=== PATIENT | female | born 1930 | race Caucasian/White ===

== ENCOUNTER 2018-01-31 10:45 | Emergency (ER) | payer MEDICARE, OTHER ==
--- NOTE | 2018-01-31 11:30 | EDM.PDOC ---
ED HPI GENERAL MEDICAL PROBLEM - General Chief Complaint: General Time Seen by Provider: 01/31/18 11:19 Source of Information: Reports: Patient History Limitations: Reports: No Limitations - History of Present Illness INITIAL COMMENTS - FREE TEXT/NARRATIVE: Patient presents with complaint of 3 episodes of chest pain: 16, 8, and 4 hours ago respectively. The first one occurred shortly after supper last evening as she was walking from one room to another in her assisted living apartment. It lasted about 5 minutes and included mild dyspnea and throat and neck tightening. It resolved when she sat down to rest. The second episode woke her up at 0300 and lasted about 5 minutes. The last episode started when she rolled over in bed and lasted about 10 minutes. She says the pain is worse when she takes a deep breath. She feels like it is more lung related than heart. No cough, diaphoresis, vomiting but some nausea. 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 She is on aspirin and Plavix. She takes Isosorbide qam and was on Coreg for 9 months but was discontinued a week ago, when she was hospitalized in [place] with bradycardia, hypotension and major ankle swelling; the swelling is improving a lot since she stopped the Coreg a week ago she tells me. She feels completely fine now and felt fine between each episode, unlike with her heart attack 9 months ago when she felt weak and sluggish for 2-3 days but without chest pain. - Related Data Allergies Allergy/AdvReac Type Severity Reaction Status Date / Time carvedilol [From Coreg] Allergy Edema Verified 01/31/18 11:11 morphine Allergy Cannot Verified 01/31/18 11:11 Remember Cdwpspm-Wbh-Brk Reductase Allergy Cannot Verified 01/31/18 11:11 Inhibitor Remember Home Meds: Home Meds Furosemide 40 mg PO DAILY 03/28/14 [History] Levothyroxine 150 mcg PO ACBRK 03/28/14 [History] Pregabalin [Lyrica] 100 mg PO BEDTIME 03/28/14 [History] glipiZIDE [Glipizide] 5 mg PO BIDM 03/28/14 [History] metFORMIN [Glucophage] 1,000 mg PO BIDM 03/28/14 [History] Aspirin [Adult Low Dose Aspirin EC] 81 mg PO DAILY 01/31/18 [History] Cholecalciferol (Vitamin D3) [Vitamin D3] 1,000 units PO DAILY 01/31/18 [History ] Clopidogrel Bisulfate [Clopidogrel] 75 mg PO DAILY@1200 01/31/18 [History] Isosorbide Mononitrate [Isosorbide Mononitrate ER] 60 mg PO DAILY 01/31/18 [ History] Losartan [Cozaar] 100 mg PO DAILY 01/31/18 [History] Multivitamin [One Daily Multivitamin] 1 each PO DAILY 01/31/18 [History] Social & Family History - Living Situation & Occupation Living situation: Reports: Occupation: Retired ED ROS GENERAL - Review of Systems Review Of Systems: See Below Constitutional: Denies: Fever, Chills, Weakness, Decreased Appetite HEENT: Reports: Throat Pain (earlier). Denies: Vision Change Respiratory: Reports: Shortness of Breath (resolved). Denies: Cough Cardiovascular: Reports: Chest Pain (resolved). Denies: Lightheadedness, Syncope Endocrine: Reports: No Symptoms GI/Abdominal: Reports: No Symptoms. Denies: Abdominal Pain, Diarrhea, Vomiting : Denies: Dysuria, Flank Pain Musculoskeletal: Reports: No Symptoms. Denies: Shoulder Pain, Arm Pain, Back Pain Skin: Denies: Cyanosis, Jaundice, Mottled, Pallor, Diaphoresis Neurological: Reports: No Symptoms. Denies: Confusion, Seizure, Syncope Psychiatric: Denies: Agitation, Anxiety, Confusion ED EXAM, GENERAL - Physical Exam Exam: See Below Exam Limited By: No Limitations General Appearance: Alert, WD/WN, No Apparent Distress Eye Exam: Bilateral Eye: EOMI, Normal Inspection, PERRL Ears: Normal External Exam, Hearing Grossly Normal Nose: Normal Inspection, No Blood Throat/Mouth: Normal Inspection, Normal Lips, Normal Voice, No Airway Compromise Head: Atraumatic, Normocephalic Neck: Normal Inspection, Supple, Non-Tender, Full Range of Motion. No: Carotid Bruit, Limited Range of Motion Respiratory/Chest: No Respiratory Distress, Lungs Clear, Normal Breath Sounds Cardiovascular: Normal Peripheral Pulses, Regular Rate, Rhythm, No Murmur Peripheral Pulses: 1+: Posterior Tibial (L), Posterior Tibial (R), 2+: Carotid ( L), Carotid (R), Radial (L), Radial (R) GI/Abdominal: Normal Bowel Sounds, Soft, Non-Tender, No Organomegaly, No Distention Back Exam: No: CVA Tenderness (L), CVA Tenderness (R) Extremities: Pedal Edema (1+ bilat) Neurological: Alert, Oriented, Normal Cognition, No Motor/Sensory Deficits Psychiatric: Normal Affect, Normal Mood Skin Exam: Warm, Dry, Intact, Normal Color, No Rash Course - Vital Signs Last Recorded V/S: Last Vital Signs Temp 99.2 F 01/31/18 11:06 Pulse 85 01/31/18 11:39 Resp 17 01/31/18 11:39 BP 129/48 L 01/31/18 11:39 Pulse Ox 96 01/31/18 11:39 - Orders/Labs/Meds Orders: Active Orders 24 hr Category Date Time Status EKG Documentation Completion [RC] ASDIRECTED Care 01/31/18 11:10 Active CXR [Chest 2V] [CR] Stat Exams 01/31/18 11:38 Ordered EKG 12 Lead [EK] Routine Ther 01/31/18 11:09 Ordered Labs: Laboratory Tests 01/31/18 01/31/18 Range/Units 11:00 11:00 WBC 10.3 H (5.0-10.0) 10^3/uL RBC 3.94 (3.80-5.50) 10^6/uL Hgb 12.0 (12.0-16.0) g/dL Hct 36.5 L (37.0-47.0) % MCV 92.6 H (82.0-92.0) fL MCH 30.4 (27.0-31.0) pg MCHC 32.8 (32.0-36.0) g/dL RDW 13.7 (11.5-14.5) % Plt Count 347 H (150-300) 10^3/uL MPV 7.9 (7.4-10.4) fL Neut % (Auto) 64.3 (50.0-70.0) % Lymph % (Auto) 27.1 (20.0-40.0) % Pierce % (Auto) 6.3 (2.0-8.0) % Eos % (Auto) 2.0 (1.0-3.0) % Baso % (Auto) 0.3 (0.0-1.0) % Neut # (Auto) 6.7 (2.5-7.0) 10^3/uL Lymph # (Auto) 2.8 (1.0-4.0) 10^3/uL Pierce # (Auto) 0.6 (0.1-0.8) 10^3/uL Eos # (Auto) 0.2 (0.1-0.3) 10^3/uL Baso # (Auto) 0.0 (0.0-0.1) 10^3/uL Sodium 141 (136-145) mmol/L Potassium 4.2 (3.3-5.3) mmol/L Chloride 103 (98-115) mmol/L Carbon Dioxide 26.4 (21.0-32.0) mmol/L BUN 24 (6-25) mg/dL Creatinine 1.04 (0.51-1.17) mg/dL Est Cr Clr Drug Dosing 30.71 mL/min Estimated GFR (MDRD) 50 mL/min Glucose 136 H (70-110) mg/dL Calcium 9.8 (8.7-10.3) mg/dL Total Bilirubin 0.3 (0.2-1.0) mg/dL AST 19 (15-37) U/L ALT 21 (12-78) U/L Alkaline Phosphatase 80 (46-116) IU/L Troponin I 0.04 (0.00-0.070) ng/mL Total Protein 8.2 (6.4-8.2) g/dL Albumin 3.88 (3.00-4.80) g/dL - Re-Assessments/Exams Free Text/Narrative Re-Assessment/Exam: 01/31/18 12:20 Troponin is 0.04, EKG okay with LBBB similar to EKG 2.5 weeks ago but with resolved PAC/bigeminy. CXR okay with borderline cardiomegaly. I discussed case with Dr. Howell (through his nurse Anna). He wants to see pt for a stress test next week and they will call her to set this up. With normal troponins he feels she is okay to go home. Discussed findings and treatment plan with patient and she is discharged to home in stable condition. Departure - Departure Time of Disposition: 12:17 Disposition: Home, Self-Care 01 Condition: Good Clinical Impression: Chest pain of uncertain etiology - Discharge Information Referrals: Lisa Cambpell PA-C [Primary Care Provider] - Forms: ED Department Discharge Additional Instructions: 1. Continue your medications as directed. 2. Dr. Parish's office will call you to set up a stress test for next week. If you don't hear from them give them a call. 3. Return to ER as needed. - My Orders Last 24 Hours: My Active Orders 01/31/18 11:09 EKG 12 Lead [EK] Routine 01/31/18 11:10 EKG Documentation Completion [RC] ASDIRECTED 01/31/18 11:38 CXR [Chest 2V] [CR] Stat - Assessment/Plan Last 24 Hours: My Active Orders 01/31/18 11:09 EKG 12 Lead [EK] Routine 01/31/18 11:10 EKG Documentation Completion [RC] ASDIRECTED 01/31/18 11:38 CXR [Chest 2V] [CR] Stat
== END 2018-01-31 12:45 | disposition home or self-care (01) ==
LOC: KA.ED 10:45
DX: R07.9 Chest pain, unspecified (principal); Z88.5 Allergy status to narcotic agent; Z88.8 Allergy status to other drugs, medicaments and biological substances; Z79.82 Long term (current) use of aspirin; Z79.899 Other long term (current) drug therapy
CPT/HCPCS: 71046; 80053; 84484; 85025; 99285

== ENCOUNTER 2018-09-13 18:51 | Emergency (ER) | payer MEDICARE, OTHER ==
--- NOTE | 2018-09-13 19:52 | EDM.PDOC ---
ED HPI GENERAL MEDICAL PROBLEM - General Chief Complaint: General Stated Complaint: FALL Time Seen by Provider: 09/13/18 19:03 Source of Information: Reports: Patient, EMS, EMS Notes Reviewed History Limitations: Reports: No Limitations - History of Present Illness INITIAL COMMENTS - FREE TEXT/NARRATIVE: Patient is an 88-year-old female who presents to the emergency Department this evening via EMS with a complaint of falling out of bed and unable to get up. Patient states that she was on the floor for about 10 minutes and one of the staff from the nursing facility helped her up. Decided to contact 911 for evaluation. Patient had similar symptoms 4 days ago. Since then, family members have installed a railing on the bed, but patient states she still is unfamiliar with how to use it and was unable to get up. No injuries at that time. Patient denies any injuries at this time. Patient denies chest pain, shortness of breath, headache, injury, nausea, vomiting, diarrhea, dizziness, blurry vision, or any extremity pain. Onset: Today Duration: Hour(s): Location: Reports: Other (No injury) Improves with: Reports: None Worsens with: Reports: None Context: Reports: Other (Fall out of bed) Associated Symptoms: Reports: No Other Symptoms - Related Data Allergies Allergy/AdvReac Type Severity Reaction Status Date / Time carvedilol [From Coreg] Allergy Edema Verified 09/13/18 19:05 morphine Allergy Cannot Verified 09/13/18 19:05 Remember Gxkqcib-Xab-Ack Reductase Allergy Cannot Verified 09/13/18 19:05 Inhibitor Remember Home Meds: Home Meds Furosemide 40 mg PO DAILY 03/28/14 [History] Levothyroxine 150 mcg PO ACBRK 03/28/14 [History] Pregabalin [Lyrica] 100 mg PO BEDTIME 03/28/14 [History] glipiZIDE [Glipizide] 10 mg PO BIDM 03/28/14 [History] metFORMIN [Glucophage] 1,000 mg PO BIDM 03/28/14 [History] Aspirin [Adult Low Dose Aspirin EC] 81 mg PO DAILY 01/31/18 [History] Cholecalciferol (Vitamin D3) [Vitamin D3] 2,000 units PO DAILY 01/31/18 [History ] Clopidogrel Bisulfate [Clopidogrel] 75 mg PO DAILY@1200 01/31/18 [History] Isosorbide Mononitrate [Isosorbide Mononitrate ER] 60 mg PO DAILY 01/31/18 [ History] Losartan [Cozaar] 100 mg PO DAILY 01/31/18 [History] Multivitamin [One Daily Multivitamin] 1 each PO DAILY 01/31/18 [History] Acetaminophen [Tylenol] 650 mg PO Q4H 08/14/18 [History] Cephalexin [Keflex] 500 mg PO TID #21 capsule 08/14/18 [Rx] Cyanocobalamin (Vitamin B-12) [Cyanocobalamin Injection] 1,000 mcg IJ Q21D 08/14 [History] Esomeprazole Magnesium [Nexium] 40 mg PO DAILY 08/14/18 [History] Metoprolol Succinate [Toprol Xl] 25 mg PO DAILY 08/14/18 [History] Nitroglycerin 1 tab SL ASDIRECTED PRN 08/14/18 [History] Propylene Glycol/Peg 400 [Systane Ultra 0.4-0.3% Eye Drp] 1 drop EYEBOTH BID [History] Past Medical History HEENT History: Reports: Cataract, Impaired Vision, Other (See Below) Other HEENT History: [employer] [place] [employer] [place] with hearing aid left ear Cardiovascular History: Reports: High Cholesterol, Hypertension, NE, Stents Respiratory History: Reports: None Gastrointestinal History: Reports: GERD Genitourinary History: Reports: Urinary Incontinence TILE PICKER History: Reports: Musculoskeletal History: Reports: Back Pain, Chronic, Fracture Neurological History: Reports: Head Trauma, Neuropathy, Diabetic, Parkinson's, TIA Psychiatric History: Reports: None Endocrine/Metabolic History: Reports: Diabetes, Type II, Hypothyroidism, Vitamin D Deficiency Hematologic History: Reports: Anemia, B12 Deficiency Dermatologic History: Reports: None - Infectious Disease History Infectious Disease History: Reports: Chicken Pox, Influenza, Measles - Past Surgical History HEENT Surgical History: Reports: Cataract Surgery Cardiovascular Surgical History: Reports: Coronary Artery Stent Respiratory Surgical History: Reports: None GI Surgical History: Reports: Colonoscopy Female Surgical History: Reports: D&C, Other (See Below) Other Female Surgeries/Procedures: bladder stone Endocrine Surgical History: Reports: Thyroidectomy Neurological Surgical History: Reports: None Musculoskeletal Surgical History: Reports: Arthroscopic Knee Dermatological Surgical History: Reports: None Social & Family History - Family History Family Medical History: Noncontributory - Tobacco Use Smoking Status *Q: Former Smoker Used Tobacco, but Quit: Yes Month/Year Tobacco Last Used: 50 years ago Second Hand Smoke Exposure: No - Caffeine Use Caffeine Use: Reports: Coffee - Recreational Drug Use Recreational Drug Use: No - Living Situation & Occupation Living situation: Reports: Occupation: Retired ED ROS GENERAL - Review of Systems Review Of Systems: ROS reveals no pertinent complaints other than HPI. Constitutional: Reports: No Symptoms HEENT: Reports: No Symptoms Respiratory: Reports: No Symptoms Cardiovascular: Reports: No Symptoms Endocrine: Reports: No Symptoms GI/Abdominal: Reports: No Symptoms : Reports: No Symptoms Musculoskeletal: Reports: No Symptoms Skin: Reports: No Symptoms Neurological: Reports: No Symptoms Psychiatric: Reports: No Symptoms Hematologic/Lymphatic: Reports: No Symptoms Immunologic: Reports: No Symptoms ED EXAM, GENERAL - Physical Exam Exam: See Below Exam Limited By: No Limitations General Appearance: Alert, WD/WN, No Apparent Distress Eye Exam: Bilateral Eye: Normal Inspection Nose: Normal Inspection, No Blood Throat/Mouth: Normal Inspection, Normal Oropharynx, No Airway Compromise Head: Atraumatic, Normocephalic Neck: Normal Inspection, Supple, Non-Tender, Full Range of Motion, Thyromegaly Respiratory/Chest: No Respiratory Distress, Lungs Clear, No Accessory Muscle Use , Chest Non-Tender Cardiovascular: Regular Rate, Rhythm GI/Abdominal: Normal Bowel Sounds, Soft, Non-Tender Back Exam: Normal Inspection, Full Range of Motion Extremities: Normal Inspection, Normal Range of Motion, Non-Tender, No Pedal Edema Neurological: Alert, Oriented, CN II-XII Intact, Normal Cognition, No Motor/ Sensory Deficits Psychiatric: Normal Affect, Normal Mood Skin Exam: Warm, Dry, Intact, Normal Color, No Rash Lymphatic: No Adenopathy Course - Vital Signs Last Recorded V/S: Last Vital Signs Temp 99.9 F 09/13/18 19:02 Pulse 108 H 09/13/18 19:02 Resp 20 09/13/18 19:02 BP 174/64 H 09/13/18 19:02 Pulse Ox 92 L 09/13/18 19:02 - Re-Assessments/Exams Free Text/Narrative Re-Assessment/Exam: 09/13/18 19:56 Patient is afebrile, vital signs stable, no signs of trauma, denies chest pain or shortness of breath, discussed in length precautions to take for falls in the elderly. 09/13/18 19:56 Departure - Departure Time of Disposition: 19:57 Disposition: Home, Self-Care 01 Condition: Good Clinical Impression: Fall in elderly patient - Discharge Information Instructions: Fall Prevention in the Home, [id number] Referrals: Julee Sandoval MD [Primary Care Provider] - Additional Instructions: Follow-up with PCP in 2-3 days. Return to emergency sooner symptoms continue or worsen. - Assessment/Plan Assessment:: Fall Plan: Follow-up with PCP
[2018-09-13] MEDS ORDERED: Acetaminophen 325 MG Tab PO ONE (20:00)
[2018-09-13] MEDS ORDERED: Acetaminophen 325 MG Tab ONE (20:02)
== END 2018-09-13 23:00 | disposition home or self-care (01) ==
LOC: KA.ED 18:51
DX: Z04.3 Encounter for examination and observation following other accident (principal); I10 Essential (primary) hypertension; E11.40 Type 2 diabetes mellitus with diabetic neuropathy, unspecified; K21.9 Gastro-esophageal reflux disease without esophagitis; E78.00 Pure hypercholesterolemia, unspecified; I25.2 Old myocardial infarction; Z79.02 Long term (current) use of antithrombotics/antiplatelets; Z79.2 Long term (current) use of antibiotics; Z79.84 Long term (current) use of oral hypoglycemic drugs; Z79.899 Other long term (current) drug therapy; Z88.6 Allergy status to analgesic agent; Z88.8 Allergy status to other drugs, medicaments and biological substances; Z87.891 Personal history of nicotine dependence; Z90.89 Acquired absence of other organs; Z95.5 Presence of coronary angioplasty implant and graft; Z98.890 Other specified postprocedural states
CPT/HCPCS: 71045; 81001; 87804; 99283; 99285; A9270-GY

== ENCOUNTER 2018-09-14 08:47 | Inpatient (IN) | payer MEDICARE, OTHER ==
[2018-09-14] MEDS ORDERED: Sodium Chloride 0.9% 10 ML Syringe FLUSH PRN ×2 (08:56→10:25)
[2018-09-14] MEDS ORDERED: Sodium Chloride 0.9% 1,000 ML IV ONE (08:56)
--- NOTE | 2018-09-14 09:23 | EDM.PDOC ---
ED HPI GENERAL MEDICAL PROBLEM - General Chief Complaint: General Stated Complaint: WEAKNESS Time Seen by Provider: 09/14/18 08:54 Source of Information: Reports: Patient History Limitations: Reports: No Limitations - History of Present Illness INITIAL COMMENTS - FREE TEXT/NARRATIVE: Patient is an 88-year-old female who presents to the emergency department this morning via EMS with a complaint of weakness. Patient was seen in ER on 09/10, and 09/13. Those visits were secondary to fall from bed. Neither incident resulted in any trauma. Lab work, urinalysis, influenza, and chest x-ray were performed. All were negative and within normal limits. Patient was evaluated last evening and returned to nursing facility. This a.m. staff at the nursing facility felt that she was too weak to stay there and therefore sent her to the emergency department for further placement. Upon presentation, patient just says she feels weak. She denies chest pain, shortness of breath, nausea, vomiting, diarrhea, abdominal pain, dysuria, headache, dizziness, or any pain. Onset: Gradual Duration: Chronic Location: Reports: Generalized (Weakness without pain) Quality: Reports: Other (Denies any pain) Improves with: Reports: None Worsens with: Reports: None Associated Symptoms: Reports: Weakness. Denies: Confusion, Chest Pain, Cough, Diaphoresis, Fever/Chills, Headaches, Nausea/Vomiting, Rash, Shortness of Breath , Syncope - Related Data Allergies Allergy/AdvReac Type Severity Reaction Status Date / Time carvedilol [From Coreg] Allergy Edema Verified 09/13/18 19:05 morphine Allergy Cannot Verified 09/13/18 19:05 Remember Zgvinmr-Uli-Efg Reductase Allergy Cannot Verified 09/13/18 19:05 Inhibitor Remember Home Meds: Home Meds Furosemide 40 mg PO DAILY 03/28/14 [History] Levothyroxine 150 mcg PO ACBRK 03/28/14 [History] Pregabalin [Lyrica] 100 mg PO BEDTIME 03/28/14 [History] glipiZIDE [Glipizide] 10 mg PO BIDM 03/28/14 [History] metFORMIN [Glucophage] 1,000 mg PO BIDM 03/28/14 [History] Aspirin [Adult Low Dose Aspirin EC] 81 mg PO DAILY 01/31/18 [History] Cholecalciferol (Vitamin D3) [Vitamin D3] 2,000 units PO DAILY 01/31/18 [History ] Clopidogrel Bisulfate [Clopidogrel] 75 mg PO DAILY@1200 01/31/18 [History] Isosorbide Mononitrate [Isosorbide Mononitrate ER] 60 mg PO DAILY 01/31/18 [ History] Losartan [Cozaar] 100 mg PO DAILY 01/31/18 [History] Multivitamin [One Daily Multivitamin] 1 each PO DAILY 01/31/18 [History] Acetaminophen [Tylenol] 650 mg PO Q4H 08/14/18 [History] Cyanocobalamin (Vitamin B-12) [Cyanocobalamin Injection] 1,000 mcg IJ Q21D 08/14 [History] Esomeprazole Magnesium [Nexium] 40 mg PO DAILY 08/14/18 [History] Metoprolol Succinate [Toprol Xl] 25 mg PO DAILY 08/14/18 [History] Nitroglycerin 1 tab SL ASDIRECTED PRN 08/14/18 [History] Propylene Glycol/Peg 400 [Systane Ultra 0.4-0.3% Eye Drp] 1 drop EYEBOTH BID [History] Past Medical History HEENT History: Reports: Cataract, Impaired Vision, Other (See Below) Other HEENT History: [place] with hearing aid left ear Cardiovascular History: Reports: High Cholesterol, Hypertension, GA, Stents Respiratory History: Reports: None Gastrointestinal History: Reports: GERD Genitourinary History: Reports: Urinary Incontinence 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: Musculoskeletal History: Reports: Back Pain, Chronic, Fracture Neurological History: Reports: Head Trauma, Neuropathy, Diabetic, Parkinson's, TIA Psychiatric History: Reports: None Endocrine/Metabolic History: Reports: Diabetes, Type II, Hypothyroidism, Vitamin D Deficiency Hematologic History: Reports: Anemia, B12 Deficiency Dermatologic History: Reports: None - Infectious Disease History Infectious Disease History: Reports: Chicken Pox, Influenza, Measles - Past Surgical History HEENT Surgical History: Reports: Cataract Surgery Cardiovascular Surgical History: Reports: Coronary Artery Stent Respiratory Surgical History: Reports: None GI Surgical History: Reports: Colonoscopy Female Surgical History: Reports: D&C, Other (See Below) Other Female Surgeries/Procedures: bladder stone Endocrine Surgical History: Reports: Thyroidectomy Neurological Surgical History: Reports: None Musculoskeletal Surgical History: Reports: Arthroscopic Knee Dermatological Surgical History: Reports: None Social & Family History - Family History Family Medical History: Noncontributory - Caffeine Use Caffeine Use: Reports: Coffee - Living Situation & Occupation Living situation: Reports: Occupation: Retired ED ROS GENERAL - Review of Systems Review Of Systems: ROS reveals no pertinent complaints other than HPI. Constitutional: Reports: Weakness. Denies: Fever, Chills HEENT: Reports: No Symptoms Respiratory: Reports: No Symptoms Cardiovascular: Reports: No Symptoms Endocrine: Reports: No Symptoms GI/Abdominal: Reports: No Symptoms. Denies: Abdominal Pain, Diarrhea, Nausea, Vomiting : Reports: No Symptoms Musculoskeletal: Reports: No Symptoms Skin: Reports: No Symptoms Neurological: Reports: Difficulty Walking, Weakness. Denies: Confusion, Dizziness, Headache, Paresthesia, Syncope, Trouble Speaking, Change in Speech Psychiatric: Reports: No Symptoms Hematologic/Lymphatic: Reports: No Symptoms Immunologic: Reports: No Symptoms ED EXAM, GENERAL - Physical Exam Exam: See Below Exam Limited By: No Limitations General Appearance: Alert, WD/WN, No Apparent Distress Eye Exam: Bilateral Eye: Normal Inspection Nose: Normal Inspection, Normal Mucosa, No Blood Throat/Mouth: Normal Inspection, Normal Oropharynx, No Airway Compromise Head: Atraumatic, Normocephalic Neck: Normal Inspection, Supple, Non-Tender Respiratory/Chest: No Respiratory Distress, Lungs Clear, Normal Breath Sounds, No Accessory Muscle Use Cardiovascular: Regular Rate, Rhythm, No Murmur GI/Abdominal: Normal Bowel Sounds, Soft, Non-Tender, No Organomegaly, No Distention, No Abnormal Bruit, No Mass Back Exam: Normal Inspection. No: CVA Tenderness (L), CVA Tenderness (R) Extremities: Normal Inspection, No Pedal Edema Neurological: Alert, Oriented, CN II-XII Intact, Normal Cognition Psychiatric: Normal Affect, Normal Mood Skin Exam: Warm, Dry, Intact, Normal Color, No Rash Lymphatic: No Adenopathy Course - Orders/Labs/Meds Orders: Active Orders 24 hr Category Date Time Status Peripheral IV Care [RC] . DIRECTED Care 09/14/18 08:56 Active UA W/MICROSCOPIC [URIN] Stat Lab 09/14/18 08:56 Ordered Sodium Chloride 0.9% [Saline Flush] Med 09/14/18 08:56 Ordered 10 ml FLUSH Q8HR PRN Peripheral IV Insertion Adult [OM.PC] Routine Oth 09/14/18 08:56 Ordered Medication Orders Sodium Chloride (Saline Flush) 10 ml FLUSH Q8HR PRN PRN Reason: keep vein open Labs: Laboratory Tests 09/14/18 09/14/18 09/14/18 Range/Units 09:25 09:25 10:08 WBC 6.98 (5.00-10.00) 10^3/uL RBC 4.04 (3.80-5.50) 10^6/uL Hgb 13.0 (12.0-16.0) g/dL Hct 38.1 (37.0-47.0) % MCV 94.3 H (82.0-92.0) fL MCH 32.2 H (27.0-31.0) pg MCHC 34.1 (32.0-36.0) g/dL RDW 14.1 (11.5-14.5) % Plt Count 282 (150-400) 10^3/uL MPV 9.8 (7.4-10.4) fL Immature Gran % (Auto) 1.0 (0.0-5.0) % Neut % (Auto) 71.5 H (50.0-70.0) % Lymph % (Auto) 12.9 L (20.0-40.0) % [place] % (Auto) 14.2 H (2.0-8.0) % Eos % (Auto) 0.1 L (1.0-3.0) % Baso % (Auto) 0.3 (0.0-1.0) % Immature Gran # (Auto) 0.07 (0.00-0.50) 10^3/uL Neut # (Auto) 4.99 (2.50-7.00) 10^3/uL Lymph # (Auto) 0.90 L (1.00-4.00) 10^3/uL [place] # (Auto) 0.99 H (0.10-0.80) 10^3/uL Eos # (Auto) 0.01 L (0.10-0.30) 10^3/uL Baso # (Auto) 0.02 (0.00-0.10) 10^3/uL Sodium 140 (136-145) mmol/L Potassium 3.9 (3.3-5.3) mmol/L Chloride 100 (98-115) mmol/L Carbon Dioxide 30.0 (21.0-32.0) mmol/L Anion Gap 13.9 (5-15) mmol/L BUN 23 (6-25) mg/dL Creatinine 0.99 (0.51-1.17) mg/dL Est Cr Clr Drug Dosing TNP Estimated GFR (MDRD) 53 mL/min Glucose 162 H (75 - 99) mg/dL Calcium 9.2 (8.7-10.3) mg/dL Total Bilirubin 0.4 (0.2-1.0) mg/dL AST 24 (15-37) U/L ALT 26 (12-78) U/L Alkaline Phosphatase 71 (46-116) IU/L Total Protein 7.7 (6.4-8.2) g/dL Albumin 3.75 (3.00-4.80) g/dL Urine Color Yellow (YELLOW) Urine Appearance Clear (CLEAR) Urine pH 5.5 (5.0-9.0) Ur Specific Post 1.020 (1.005-1.030) Urine Protein Trace H (NEGATIVE) mg/dL Urine Glucose (UA) Negative (NEGATIVE) mg/dL Urine Ketones Trace H (NEGATIVE) mg/dL Urine Occult Blood Negative (NEGATIVE) Urine Nitrite Negative (NEGATIVE) Urine Bilirubin Negative (NEGATIVE) Urine Urobilinogen 0.2 (0.2-1.0) E.U./dL Ur Leukocyte Esterase Negative (NEGATIVE) Meds: Medications Generic Name Dose Route Start Last Admin Trade Name Freq PRN Reason Stop Dose Admin Sodium Chloride 10 ml 09/14/18 08:56 Saline Flush FLUSH Q8HR PRN keep vein open Discontinued Medications Generic Name Dose Route Start Last Admin Trade Name Freq PRN Reason Stop Dose Admin Sodium Chloride 1,000 mls @ 999 mls/hr 09/14/18 08:56 09/14/18 09:40 Normal Saline IV 09/14/18 09:56 999 mls/hr .BOLUS ONE Administration - Radiology Interpretation Free Text/Narrative:: Chest x-ray performed last evening, was negative for acute cardiopulmonary process. Influenza negative, and Urinalysis was also negative. - Re-Assessments/Exams Free Text/Narrative Re-Assessment/Exam: 09/14/18 10:21 Patient afebrile, vital signs stable, denies any pain. Chest x-ray, influenza, lab work, and urine, all negative. Family members would like the patient to be admitted to group home. Patient will be admitted to hospital for observation and consideration for future transfer. Departure - Departure Time of Disposition: 10:23 Disposition: Refer to Observation Condition: Good Clinical Impression: Generalized weakness, Fall in elderly patient - Discharge Information Referrals: Julee Sandoval MD [Primary Care Provider] - Forms: ED Department Discharge - My Orders Last 24 Hours: My Active Orders 09/14/18 08:56 Peripheral IV Care [RC] . DIRECTED UA W/MICROSCOPIC [URIN] Stat Sodium Chloride 0.9% [Saline Flush] 10 ml FLUSH Q8HR PRN Peripheral IV Insertion Adult [OM.PC] Routine - Assessment/Plan Last 24 Hours: My Active Orders 09/14/18 08:56 Peripheral IV Care [RC] . DIRECTED UA W/MICROSCOPIC [URIN] Stat Sodium Chloride 0.9% [Saline Flush] 10 ml FLUSH Q8HR PRN Peripheral IV Insertion Adult [OM.PC] Routine Assessment:: Weakness Plan: Admit observation
[2018-09-14 09:54] LABS: ANION GAP 13.9 mmol/L (5-15); CHLORIDE,CL 100 mmol/L (98-115); SODIUM,NA 140 mmol/L (136-145)
[2018-09-14] MEDS ORDERED: Non-Formulary Medication 1 Each (Metformin [Glucophage] 1,000 MG) PO SCH (18:00)
[2018-09-14] MEDS ORDERED: metFORMIN 500 MG Tab PO SCH (18:17)
[2018-09-14] MEDS: glipiZIDE 5 MG Tab PO SCH (18:36)
[2018-09-14] MEDS: metFORMIN 500 MG Tab PO SCH (18:36)
[2018-09-14] MEDS: Carboxymethylcellulose Sodium 0.5% Ophth Soln 15 ML Bottle EYEBOTH SCH (20:31)
[2018-09-14] MEDS: Pregabalin 100 MG Cap PO SCH (20:31)
[2018-09-14] MEDS ORDERED: Sodium Chloride 0.9% 500 ML IV SCH (23:30)
[2018-09-14] MEDS: Acetaminophen 325 MG Tab PO PRN (23:56)
[2018-09-15] MEDS: Sodium Chloride 0.9% 1,000 ML IV SCH ×2 (01:57→05:17)
[2018-09-15] MEDS: Levothyroxine 100 MCG Tab PO SCH (07:27)
[2018-09-15] MEDS: Acetaminophen 325 MG Tab PO PRN ×2 (08:06→19:02)
[2018-09-15] MEDS: metFORMIN 500 MG Tab PO SCH ×2 (08:07→18:25)
[2018-09-15] MEDS: glipiZIDE 5 MG Tab PO SCH ×2 (08:07→18:25)
[2018-09-15] MEDS: Aspirin 81 MG Tab.EC PO SCH (10:03)
[2018-09-15] MEDS: Furosemide 40 MG Tab PO SCH (10:03)
[2018-09-15] MEDS: Losartan 50 MG Tab PO SCH (10:04)
[2018-09-15 10:08] LABS: ANION GAP 12.5 mmol/L (5-15)
[2018-09-15] MEDS: Metoprolol Succinate 25 MG Tab.ER PO SCH (10:08)
--- NOTE | 2018-09-15 10:48 | CR ---
[id number] RAD/RAD Chest PA And Lateral EXAM: RAD Chest PA And Lateral INDICATION: COUGH, FEVER. COMPARISON: September 13, 2017. DISCUSSION: Cardiomegaly and mild central vascular congestion. Findings are similar to the prior examination. No radiographically evident pneumonia. IMPRESSION: As above. Jesus Adams MD 09/15/18 1046 Thank you for allowing us to participate in the care of your patient.
[2018-09-15] MEDS: Apixaban 5 MG Tab PO SCH ×2 (11:20→21:10)
[2018-09-15] MEDS: Carboxymethylcellulose Sodium 0.5% Ophth Soln 15 ML Bottle EYEBOTH SCH ×2 (11:20→21:09)
--- NOTE | 2018-09-15 14:25 | PCM.PN ---
- General Info Date of Service: 09/15/18 Admission Dx/Problem (Free Text): Weakness - Review of Systems Systems Review Comment:: Silvana is seen today on rounds. She was admitted observation status on after being seen in the ER on 09/13/18 for a controlled fall and inability to get up on her own. Work-up at that time was negative. She was discharged to home, however, she presented again to the ER on 09/14/18 with continued weakness and inability to stay safely at her assisted living facility, which dose not have 24 hours care. She was admitted for weakness and for NH placement. Labs obtained on 09/14/18 were unremarkable. VSS. She did, however, spike a temperature last evening to 101.9. Blood cultures x 1 set were taken, it was reportedly very difficult to even get those. She had low blood pressure 90's/50's and so IVF's were started. She had a negative CXR on 09/14/18. Labs were ordered this morning and they are all unremarkable. CBC is not elevated and there is no left shift. BP's are better with the fluids. She feels weak, no N/V/D. She denies SOB although her sats were 83% earlier on RA and she is not usually on oxygen. They are 95% on 2 L currently. Her family is adamant that she not return to assisted living as they have seen a physical strength decline over the past few months and appropriately feel she would benefit from 24 hour skilled care. Silvana has no questions for me today. - Patient Data Vitals - Most Recent: Last Vital Signs Temp 98.7 F 09/15/18 11:00 Pulse 87 09/15/18 11:00 Resp 20 09/15/18 11:00 BP 105/51 L 09/15/18 11:00 Pulse Ox 95 09/15/18 11:00 Weight - Most Recent: 173 lb 1.6 oz I&O - Last 24 Hours: Intake & Output 09/14/18 09/15/18 09/15/18 22:59 06:59 14:59 Intake Total 195 250 Balance 195 250 Lab Results Last 24 Hours: Laboratory Results - last 24 hr 09/15/18 09/15/18 Range/Units 09:35 09:35 WBC 7.95 (5.00-10.00) 10^3/uL RBC 3.93 (3.80-5.50) 10^6/uL Hgb 12.5 (12.0-16.0) g/dL Hct 37.5 (37.0-47.0) % MCV 95.4 H (82.0-92.0) fL MCH 31.8 H (27.0-31.0) pg MCHC 33.3 (32.0-36.0) g/dL RDW 14.4 (11.5-14.5) % Plt Count 241 (150-400) 10^3/uL MPV 9.9 (7.4-10.4) fL Immature Gran % (Auto) 0.6 (0.0-5.0) % Neut % (Auto) 68.0 (50.0-70.0) % Lymph % (Auto) 17.9 L (20.0-40.0) % [place] % (Auto) 13.3 H (2.0-8.0) % Eos % (Auto) 0.1 L (1.0-3.0) % Baso % (Auto) 0.1 (0.0-1.0) % Immature Gran # (Auto) 0.05 (0.00-0.50) 10^3/uL Neut # (Auto) 5.40 (2.50-7.00) 10^3/uL Lymph # (Auto) 1.42 (1.00-4.00) 10^3/uL [place] # (Auto) 1.06 H (0.10-0.80) 10^3/uL Eos # (Auto) 0.01 L (0.10-0.30) 10^3/uL Baso # (Auto) 0.01 (0.00-0.10) 10^3/uL Sodium 134 L (136-145) mmol/L Potassium 3.5 (3.3-5.3) mmol/L Chloride 101 (98-115) mmol/L Carbon Dioxide 24.0 (21.0-32.0) mmol/L Anion Gap 12.5 (5-15) mmol/L BUN 20 (6-25) mg/dL Creatinine 0.94 (0.51-1.17) mg/dL Est Cr Clr Drug Dosing 36.41 mL/min Estimated GFR (MDRD) 56 mL/min Glucose 174 H (75 - 99) mg/dL Calcium 8.0 L (8.7-10.3) mg/dL Med Orders - Current: Current Medications Acetaminophen (Tylenol) 650 mg PO Q4H PRN PRN Reason: Pain (Mild 1-3)/fever Last Admin: 09/15/18 08:06 Dose: 650 mg Apixaban (Eliquis) 5 mg PO BID [facility] Last Admin: 09/15/18 11:20 Dose: 5 mg Artificial Tears (Refresh Tears 0.5%) 0 ml EYEBOTH BID [facility] Last Admin: 09/15/18 11:20 Dose: 1 drop Aspirin (Halfprin) 81 mg PO DAILY [facility] Last Admin: 09/15/18 10:03 Dose: 81 mg Furosemide (Lasix) 40 mg PO DAILY [facility] Last Admin: 09/15/18 10:03 Dose: 40 mg Glipizide (Glucotrol) 10 mg PO BIDM [facility] Last Admin: 09/15/18 08:07 Dose: 10 mg Levothyroxine Sodium (Synthroid) 150 mcg PO ACBRK [facility] Last Admin: 09/15/18 07:27 Dose: 150 mcg Losartan Potassium (Cozaar) 100 mg PO DAILY [facility] Last Admin: 09/15/18 10:04 Dose: 100 mg Metformin HCl (Glucophage) 1,000 mg PO BIDM [facility] Last Admin: 09/15/18 08:07 Dose: 1,000 mg Metoprolol Succinate (Toprol Xl) 25 mg PO DAILY [facility] Last Admin: 09/15/18 10:08 Dose: 25 mg Pregabalin (Lyrica) 100 mg PO BEDTIME [facility] Last Admin: 09/14/18 20:31 Dose: 100 mg Sodium Chloride (Saline Flush) 10 ml FLUSH Q8HR PRN PRN Reason: keep vein open Discontinued Medications Sodium Chloride (Normal Saline) 1,000 mls @ 999 mls/hr IV .BOLUS ONE Stop: 09/14/18 09:56 Last Admin: 09/14/18 09:40 Dose: 999 mls/hr Sodium Chloride (Normal Saline) 500 mls @ 500 mls/hr IV ASDIRECTED [facility] Stop: 09/15/18 00:29 Last Admin: 09/14/18 23:51 Dose: 500 mls/hr Sodium Chloride (Normal Saline) 1,000 mls @ 125 mls/hr IV ASDIRECTED YOVANY Last Admin: 09/15/18 05:17 Dose: 125 mls/hr Metformin HCl (Glucophage) 1,000 mg PO BIDM YOVANY Non-Formulary Medication (Metformin [Glucophage]) 1,000 mg PO BIDM YOVANY - Exam Quality Assessment: Supplemental Oxygen General: Alert, Oriented, Cooperative, No Acute Distress Lungs: Clear to Auscultation, Normal Respiratory Effort Cardiovascular: Irregular Rhythm, Murmurs GI/Abdominal Exam: Normal Bowel Sounds Extremities: No Pedal Edema EKG INTERPRETATION Rhythm: A-Fib Comparison: Change From Previous EKG (Was NSR previously in May of 2018) - Problem List & Annotations (1) Atrial fibrillation SNOMED Code(s): 58142736 Code(s): I48.91 - UNSPECIFIED ATRIAL FIBRILLATION Status: Acute Current Visit: Yes (2) Diastolic heart failure SNOMED Code(s): 182114693 Code(s): I50.30 - UNSPECIFIED DIASTOLIC (CONGESTIVE) HEART FAILURE Status: Chronic Current Visit: Yes (3) Diabetes SNOMED Code(s): 40031253 Code(s): E11.9 - TYPE 2 DIABETES MELLITUS WITHOUT COMPLICATIONS Status: Chronic Current Visit: Yes (4) HTN (hypertension) SNOMED Code(s): 42257720 Code(s): I10 - ESSENTIAL (PRIMARY) HYPERTENSION Status: Chronic Current Visit: Yes (5) Hyperlipidemia SNOMED Code(s): 06862086 Code(s): E78.5 - HYPERLIPIDEMIA, UNSPECIFIED Status: Chronic Current Visit: Yes (6) Hypothyroidism SNOMED Code(s): 12826140 Code(s): E03.9 - HYPOTHYROIDISM, UNSPECIFIED Status: Chronic Current Visit: Yes (7) Peripheral neuropathy SNOMED Code(s): 261637048 Code(s): G62.9 - POLYNEUROPATHY, UNSPECIFIED Status: Chronic Current Visit: Yes (8) Pernicious anemia SNOMED Code(s): 12583021 Code(s): D51.0 - VITAMIN B12 DEFIC ANEMIA DUE TO INTRINSIC FACTOR DEFICIENCY Status: Chronic Current Visit: Yes (9) Generalized weakness SNOMED Code(s): 30046005 Code(s): R53.1 - WEAKNESS Status: Acute Current Visit: Yes - Problem List Review Problem List Initiated/Reviewed/Updated: Yes - My Orders Last 24 Hours: My Active Orders 09/15/18 08:52 Head wo Cont [CT] Routine 09/15/18 08:53 EKG Documentation Completion [RC] ASDIRECTED 09/15/18 10:02 Patient Status [ADT] Routine 09/15/18 10:30 Apixaban [Eliquis] 5 mg PO BID 09/15/18 13:23 Telemetry Monitoring [Cardiac Monitoring] [RC] . DIRECTED - Assessment Assessment:: Weakness A-fib Diabetes Hypertension Hyperlipidemia, intolerant to statins Hypothyroidism Diastolic heart failure Peripheral neuropathy Pernicious anemia - Plan Plan:: Weakness. Will order PT consult. Goal is to get patient to the NH. A-fib. Rate controlled. Will place on telemetry. [id number] is 7. Will add Eliquis 5 mg PO BID and continue on her plavix. Diabetes. Continue home meds. A1C 6.8 recently. Hypertension. Has had some hypotension, IVF's stopped due to CXR today showing mild pulmonary vascular congestion. Hyperlipidemia, intolerant to statins. No new medications. Hypothyroidism, will get TSH and T4. Diastolic heart failure. Stable. Peripheral neuropathy. Continue Lyrica. Pernicious anemia, recently had B12 injection. No change in therapy. Will get daily labs.
[2018-09-15] MEDS ORDERED: Nitroglycerin 0.4 MG Tab.SL SL PRN (15:15)
[2018-09-15] MEDS ORDERED: EPINEPHrine 1:10,000 1 MG/10 ML Syringe IVPUSH PRN (15:15)
[2018-09-15] MEDS ORDERED: Lidocaine 2% 100 MG/5 ML Syringe IVPUSH PRN (15:15)
[2018-09-15] MEDS ORDERED: Atropine 0.1 MG/ML 10 ML Syringe IVPUSH PRN (15:15)
[2018-09-15] MEDS: Pregabalin 100 MG Cap PO SCH (21:09)
[2018-09-16] MEDS: Levothyroxine 100 MCG Tab PO SCH (06:09)
[2018-09-16] MEDS ORDERED: Metoprolol Tartrate 25 MG Tab PO ONE (06:58)
[2018-09-16 07:59] LABS: CHLORIDE,CL 102 mmol/L (98-115)
[2018-09-16 08:03] LABS: ANION GAP 16.7 mmol/L (5-15); SODIUM,NA 143 mmol/L (136-145)
[2018-09-16] MEDS: Carboxymethylcellulose Sodium 0.5% Ophth Soln 15 ML Bottle EYEBOTH SCH (08:27)
[2018-09-16] MEDS: Metoprolol Succinate 25 MG Tab.ER PO SCH (08:28)
[2018-09-16] MEDS: Apixaban 5 MG Tab PO SCH (08:28)
[2018-09-16] MEDS: Aspirin 81 MG Tab.EC PO SCH (08:28)
[2018-09-16] MEDS: Furosemide 40 MG Tab PO SCH (08:29)
[2018-09-16] MEDS: glipiZIDE 5 MG Tab PO SCH (08:29)
[2018-09-16] MEDS: Losartan 50 MG Tab PO SCH (08:29)
[2018-09-16] MEDS: metFORMIN 500 MG Tab PO SCH (08:30)
--- NOTE | 2018-09-16 09:10 | PCM.DCSUM1 ---
Discharge Summary - Hospital Course Free Text/Narrative:: Silvana is being discharged today from a hospitalization from 09/14/18 - . She was initially admitted to observation on 09/14/18 after a controlled fall at home with inability to get back up. This has happened several times since mid July and her family and staff at assisted living was recommending she go to the [facility]. She was admitted observation with the intention to transition to the [facility] the next day, however she developed a temp to 101.9. Blood cultures x 1 set were obtained, not 2 as she was very hard to draw. UA negative, CBC with normal WBC and no left shift. CXR with no pneumonia. Antibiotics were not started. Temp has been running from normal up to 99. No acute ill symptoms. Yesterday on rounds, physical examination of the heart rendered an irregular rhythm. EKG was obtained which showed atrial fibrillation with rate of 97. She was placed on telemetry and based on her [id number] score of 7, she was started on Eliquis 5 mg PO BID. She reportedly had an uneventful day and had a restful evening but at 0655 this AM the hospital called me stating that when she got up at 6 AM to use the commode she had an episode of diaphoresis and feeling chilled. BP 165 systolic. HR was in the 130's and so EKG Was obtained which appears to be a- fib with multiple PVC's. She has no chest pain or SOB. I recommended an extra dose of metoprolol 25 mg PO x 1 and check a troponin. Troponin came back elevated at 1.38 (ULN 0.07). I visited with her this AM and she states "I feel pretty great". She has a hx of DC with stent placement x 5 (NEEMA overlapping to proximal RCA, mid RCA, distal RCA with a cath done on 05/17/17. She had a normal stress test on 02/06/18. She has a hx of intolerance to ALL statins and thus is not on a lipid lowering medication. Of note, she had some chest pain in May of 2018 which she felt was related to acid reflux but she was worked up fully and troponin at that time was 0.04 and EKG was NSR. Of note, thyroid studies were done with this admission and were WNL. Her code status is DNR/DNI but she would want cardiac intervention (i.e. cath +/ - stent placement if indicated). She has a hx of diabetes, last A1C from September 10, 2018 was 6.8. She is not dependent on insulin. Silvana is stable. I spoke to the LEARNING ENGINEER from the [place] hospitalist service and Dr. Laguna is the accepting physician and cardiology consultation will be placed. As she is on Eliquis and plavix it was not felt necessary to place her on heparin for possible NSTEMI. She is transferred by [facility] in stable condition. Discharge Diagnoses: Elevated troponin at 1.38, concerning for NSTEMI in patient with hx of CAD. Will transfer to [place] for cardiology consultation. Weakness. A-fib. [id number] is 7. Will add Eliquis 5 mg PO BID and continue on her plavix. Diabetes. Continue home meds. A1C 6.8 recently. Hypertension. Has had some hypotension, IVF's stopped due to CXR today showing mild pulmonary vascular congestion. Hyperlipidemia, intolerant to statins. No new medications. Hypothyroidism, replaced adequately. Diastolic heart failure. Stable. Peripheral neuropathy. Continue Lyrica. Pernicious anemia, recently had B12 injection. No change in therapy. Diagnosis: Stroke: No Modified Jeff Scale: Slight Disable;Unable to Carry Out Prev Act.Able to Look After Affairs Modified Jeff Scale Score: 2 - Discharge Data Discharge Date: 09/16/18 Discharge Disposition: DC/Tfer to Acute Hospital 02 Condition: Good - Discharge Diagnosis/Problem(s) (1) Atrial fibrillation SNOMED Code(s): 26438694 ICD Code: I48.91 - UNSPECIFIED ATRIAL FIBRILLATION Status: Acute Current Visit: Yes (2) Diastolic heart failure SNOMED Code(s): 434249464 ICD Code: I50.30 - UNSPECIFIED DIASTOLIC (CONGESTIVE) HEART FAILURE Status : Chronic Current Visit: Yes (3) Diabetes SNOMED Code(s): 50401950 ICD Code: E11.9 - TYPE 2 DIABETES MELLITUS WITHOUT COMPLICATIONS Status: Chronic Current Visit: Yes (4) HTN (hypertension) SNOMED Code(s): 38490906 ICD Code: I10 - ESSENTIAL (PRIMARY) HYPERTENSION Status: Chronic Current Visit: Yes (5) Hyperlipidemia SNOMED Code(s): 80543028 ICD Code: E78.5 - HYPERLIPIDEMIA, UNSPECIFIED Status: Chronic Current Visit: Yes (6) Hypothyroidism SNOMED Code(s): 51081683 ICD Code: E03.9 - HYPOTHYROIDISM, UNSPECIFIED Status: Chronic Current Visit: Yes (7) Peripheral neuropathy SNOMED Code(s): 386235119 ICD Code: G62.9 - POLYNEUROPATHY, UNSPECIFIED Status: Chronic Current Visit: Yes (8) Pernicious anemia SNOMED Code(s): 11684771 ICD Code: D51.0 - VITAMIN B12 DEFIC ANEMIA DUE TO INTRINSIC FACTOR DEFICIENCY Status: Chronic Current Visit: Yes (9) Generalized weakness SNOMED Code(s): 92035246 ICD Code: R53.1 - WEAKNESS Status: Acute Current Visit: Yes (10) Elevated troponin SNOMED Code(s): 786945925, 858953561, 983154487 ICD Code: R74.8 - ABNORMAL LEVELS OF OTHER SERUM ENZYMES Status: Acute Current Visit: Yes - Patient Instructions Diet: Heart Healthy Diet, Diabetic Diet - Discharge Plan *PRESCRIPTION DRUG MONITORING PROGRAM REVIEWED*: Not Applicable *COPY OF PRESCRIPTION DRUG MONITORING REPORT IN PATIENT LIBRADO: Not Applicable Home Medications: Home Meds Furosemide 40 mg PO DAILY 03/28/14 [History] Levothyroxine 150 mcg PO ACBRK 03/28/14 [History] Pregabalin [Lyrica] 100 mg PO BEDTIME 03/28/14 [History] glipiZIDE [Glipizide] 10 mg PO BIDM 03/28/14 [History] metFORMIN [Glucophage] 1,000 mg PO BIDM 03/28/14 [History] Aspirin [Adult Low Dose Aspirin EC] 81 mg PO DAILY 01/31/18 [History] Cholecalciferol (Vitamin D3) [Vitamin D3] 2,000 units PO DAILY 01/31/18 [History ] Clopidogrel Bisulfate [Clopidogrel] 75 mg PO DAILY@1200 01/31/18 [History] Isosorbide Mononitrate [Isosorbide Mononitrate ER] 60 mg PO DAILY 01/31/18 [ History] Losartan [Cozaar] 100 mg PO DAILY 01/31/18 [History] Multivitamin [One Daily Multivitamin] 1 each PO DAILY 01/31/18 [History] Cyanocobalamin (Vitamin B-12) [Cyanocobalamin Injection] 1,000 mcg IJ Q21D 08/14 [History] Nitroglycerin 1 tab SL ASDIRECTED PRN 08/14/18 [History] Acetaminophen [Acetaminophen Extra Strength] 500 mg PO Q4H PRN 09/14/18 [History ] Metoprolol Succinate [Toprol XL 50mg] 50 mg PO DAILY 09/14/18 [History] Pregabalin [Lyrica] 25 mg PO DAILY 09/14/18 [History] Apixaban [Eliquis] 5 mg PO BID tablet 09/16/18 [Rx] Oxygen Therapy Mode: Nasal Cannula Forms: ED Department Discharge, Interfacility Transfer EMTALA Referrals: Julee Sandoval MD [Primary Care Provider] - - Discharge Summary/Plan Comment DC Time >30 min.: Yes (45 minutes) - General Info Date of Service: 09/16/18 Admission Dx/Problem (Free Text: Weakness - Review of Systems Systems Review Comment: 10 point ROS obtained, all pertinent positives listed in HPI, all other systems are negative. - Patient Data Vitals - Most Recent: Last Vital Signs Temp 98.8 F 09/16/18 06:32 Pulse 126 H 09/16/18 08:28 Resp 20 09/16/18 06:32 BP 161/95 H 09/16/18 08:29 Pulse Ox 95 09/16/18 06:35 Weight - Most Recent: 173 lb 1.6 oz I&O - Last 24 hours: Intake & Output 09/15/18 09/16/18 09/16/18 22:59 06:59 14:59 Intake Total 0 Balance 0 Lab Results - Last 24 hrs: Laboratory Results - last 24 hr 09/15/18 09/15/18 09/15/18 Range/Units 09:35 09:35 09:35 WBC 7.95 (5.00-10.00) 10^3/uL RBC 3.93 (3.80-5.50) 10^6/uL Hgb 12.5 (12.0-16.0) g/dL Hct 37.5 (37.0-47.0) % MCV 95.4 H (82.0-92.0) fL MCH 31.8 H (27.0-31.0) pg MCHC 33.3 (32.0-36.0) g/dL RDW 14.4 (11.5-14.5) % Plt Count 241 (150-400) 10^3/uL MPV 9.9 (7.4-10.4) fL Immature Gran % (Auto) 0.6 (0.0-5.0) % Neut % (Auto) 68.0 (50.0-70.0) % Lymph % (Auto) 17.9 L (20.0-40.0) % Nance % (Auto) 13.3 H (2.0-8.0) % Eos % (Auto) 0.1 L (1.0-3.0) % Baso % (Auto) 0.1 (0.0-1.0) % Immature Gran # (Auto) 0.05 (0.00-0.50) 10^3/uL Neut # (Auto) 5.40 (2.50-7.00) 10^3/uL Lymph # (Auto) 1.42 (1.00-4.00) 10^3/uL Nance # (Auto) 1.06 H (0.10-0.80) 10^3/uL Eos # (Auto) 0.01 L (0.10-0.30) 10^3/uL Baso # (Auto) 0.01 (0.00-0.10) 10^3/uL Sodium 134 L (136-145) mmol/L Potassium 3.5 (3.3-5.3) mmol/L Chloride 101 (98-115) mmol/L Carbon Dioxide 24.0 (21.0-32.0) mmol/L Anion Gap 12.5 (5-15) mmol/L BUN 20 (6-25) mg/dL Creatinine 0.94 (0.51-1.17) mg/dL Est Cr Clr Drug Dosing 36.41 mL/min Estimated GFR (MDRD) 56 mL/min Glucose 174 H (75 - 99) mg/dL Calcium 8.0 L (8.7-10.3) mg/dL Troponin I (0.00-0.070) ng/mL Free T4 0.83 (0.59-1.17) ng/dL TSH, Ultra Sensitive 1.030 (0.340-4.820) uIU/mL 09/16/18 09/16/18 09/16/18 Range/Units 07:30 07:30 07:30 WBC 11.08 H (5.00-10.00) 10^3/uL RBC 4.28 (3.80-5.50) 10^6/uL Hgb 13.9 (12.0-16.0) g/dL Hct 40.7 (37.0-47.0) % MCV 95.1 H (82.0-92.0) fL MCH 32.5 H (27.0-31.0) pg MCHC 34.2 (32.0-36.0) g/dL RDW 14.3 (11.5-14.5) % Plt Count 268 (150-400) 10^3/uL MPV 9.9 (7.4-10.4) fL Immature Gran % (Auto) 0.4 (0.0-5.0) % Neut % (Auto) 84.1 H (50.0-70.0) % Lymph % (Auto) 8.4 L (20.0-40.0) % Nance % (Auto) 7.0 (2.0-8.0) % Eos % (Auto) 0.0 L (1.0-3.0) % Baso % (Auto) 0.1 (0.0-1.0) % Immature Gran # (Auto) 0.04 (0.00-0.50) 10^3/uL Neut # (Auto) 9.32 H (2.50-7.00) 10^3/uL Lymph # (Auto) 0.93 L (1.00-4.00) 10^3/uL Nance # (Auto) 0.78 (0.10-0.80) 10^3/uL Eos # (Auto) 0.00 L (0.10-0.30) 10^3/uL Baso # (Auto) 0.01 (0.00-0.10) 10^3/uL Sodium 143 (136-145) mmol/L Potassium 4.6 (3.3-5.3) mmol/L Chloride 102 (98-115) mmol/L Carbon Dioxide 28.9 (21.0-32.0) mmol/L Anion Gap 16.7 H (5-15) mmol/L BUN 21 (6-25) mg/dL Creatinine 0.87 (0.51-1.17) mg/dL Est Cr Clr Drug Dosing 39.34 mL/min Estimated GFR (MDRD) > 60 mL/min Glucose 108 H (75 - 99) mg/dL Calcium 8.6 L (8.7-10.3) mg/dL Troponin I 1.38 H* (0.00-0.070) ng/mL Free T4 (0.59-1.17) ng/dL TSH, Ultra Sensitive (0.340-4.820) uIU/mL Med Orders - Current: Current Medications Acetaminophen (Tylenol) 650 mg PO Q4H PRN PRN Reason: Pain (Mild 1-3)/fever Last Admin: 09/15/18 19:02 Dose: 650 mg Apixaban (Eliquis) 5 mg PO BID [facility] Last Admin: 09/16/18 08:28 Dose: 5 mg Artificial Tears (Refresh Tears 0.5%) 0 ml EYEBOTH BID [facility] Last Admin: 09/16/18 08:27 Dose: 1 drop Aspirin (Halfprin) 81 mg PO DAILY [facility] Last Admin: 09/16/18 08:28 Dose: 81 mg Atropine Sulfate (Atropine 0.1 Mg/Ml) 0 mg IVPUSH ASDIRECTED PRN PRN Reason: Heart Epinephrine HCl (Epinephrine 1:10,000) 1 mg IVPUSH ASDIRECTED PRN PRN Reason: Heart Furosemide (Lasix) 40 mg PO DAILY [facility] Last Admin: 09/16/18 08:29 Dose: 40 mg Glipizide (Glucotrol) 10 mg PO BIDM [facility] Last Admin: 09/16/18 08:29 Dose: Not Given Levothyroxine Sodium (Synthroid) 150 mcg PO ACBRK [facility] Last Admin: 09/16/18 06:09 Dose: 150 mcg Lidocaine HCl (Xylocaine 2%) 0 mg IVPUSH ASDIRECTED PRN PRN Reason: Heart Losartan Potassium (Cozaar) 100 mg PO DAILY [facility] Last Admin: 09/16/18 08:29 Dose: 100 mg Metformin HCl (Glucophage) 1,000 mg PO BIDM [facility] Last Admin: 09/16/18 08:30 Dose: Not Given Metoprolol Succinate (Toprol Xl) 25 mg PO DAILY [facility] Last Admin: 09/16/18 08:28 Dose: 25 mg Nitroglycerin (Nitrostat) 0.4 mg SL ASDIRECTED PRN PRN Reason: Heart Pregabalin (Lyrica) 100 mg PO BEDTIME [facility] Last Admin: 09/15/18 21:09 Dose: 100 mg Sodium Chloride (Saline Flush) 10 ml FLUSH Q8HR PRN PRN Reason: keep vein open Discontinued Medications Sodium Chloride (Normal Saline) 1,000 mls @ 999 mls/hr IV .BOLUS ONE Stop: 09/14/18 09:56 Last Admin: 09/14/18 09:40 Dose: 999 mls/hr Sodium Chloride (Normal Saline) 500 mls @ 500 mls/hr IV ASDIRECTED [facility] Stop: 09/15/18 00:29 Last Admin: 09/14/18 23:51 Dose: 500 mls/hr Sodium Chloride (Normal Saline) 1,000 mls @ 125 mls/hr IV ASDIRECTED [facility] Last Admin: 09/15/18 05:17 Dose: 125 mls/hr Metformin HCl (Glucophage) 1,000 mg PO BIDM [facility] Metoprolol Tartrate (Lopressor) 25 mg PO ONETIME ONE Stop: 09/16/18 06:59 Last Admin: 09/16/18 07:27 Dose: 25 mg Non-Formulary Medication (Metformin [Glucophage]) 1,000 mg PO BIDM [facility] - Exam Quality Assessment: Reports: Supplemental Oxygen General: Reports: Alert, Oriented, Cooperative, No Acute Distress Lungs: Reports: Wheezing (Scant wheezing L>R) Cardiovascular: Reports: Irregular Rhythm, Tachycardia, Murmurs GI/Abdominal Exam: Normal Bowel Sounds Extremities: No Pedal Edema
--- NOTE | 2018-09-16 14:33 | CT ---
[id number] CT/CT Head WO IV EXAM: CT Head WO IV CLINICAL DATA: COUGH AND FEVER COMPARISON: NO PREVIOUS SIMILAR EXAM IS AVAILABLE FOR COMPARISON. FINDINGS: There is no mass or mass effect. There is no hemorrhage or hydrocephalus. There are no extra-axial fluid collections. There are no sites of abnormal attenuation. IMPRESSION: NO PLAIN CT EVIDENCE OF ACUTE INTRACRANIAL PROCESS. Jeff Zee MD 09/16/18 2520 Thank you for allowing us to participate in the care of your patient.
== END 2018-09-16 10:40 | DRG 281 ==
LOC: KA.ED 08:47 → KA.MS 10:25 → OBSVTOIN 09-15 10:02
PROVIDERS: ADMIT Physician Assistant Surgical; ATTEND Internal Medicine
DX: I48.91 Unspecified atrial fibrillation (principal); I21.4 Non-ST elevation (NSTEMI) myocardial infarction; I10 Essential (primary) hypertension; I50.32 Chronic diastolic (congestive) heart failure; R53.1 Weakness; E78.00 Pure hypercholesterolemia, unspecified; K21.9 Gastro-esophageal reflux disease without esophagitis; R32 Unspecified urinary incontinence; G89.29 Other chronic pain; M54.9 Dorsalgia, unspecified; D64.9 Anemia, unspecified; E53.8 Deficiency of other specified B group vitamins; E11.40 Type 2 diabetes mellitus with diabetic neuropathy, unspecified; G20 Parkinson's disease; E55.9 Vitamin D deficiency, unspecified; E89.0 Postprocedural hypothyroidism; H54.7 Unspecified visual loss; H91.90 Unspecified hearing loss, unspecified ear; I49.3 Ventricular premature depolarization; I25.10 Atherosclerotic heart disease of native coronary artery without angina pectoris; I11.0 Hypertensive heart disease with heart failure; E78.5 Hyperlipidemia, unspecified; E11.42 Type 2 diabetes mellitus with diabetic polyneuropathy; R26.2 Difficulty in walking, not elsewhere classified; W06.XXXA Fall from bed, initial encounter; D51.0 Vitamin B12 deficiency anemia due to intrinsic factor deficiency; I95.9 Hypotension, unspecified; R50.9 Fever, unspecified; I25.2 Old myocardial infarction; Z95.5 Presence of coronary angioplasty implant and graft; Z88.6 Allergy status to analgesic agent; Z88.8 Allergy status to other drugs, medicaments and biological substances; Z86.73 Personal history of transient ischemic attack (TIA), and cerebral infarction without residual deficits; Z79.899 Other long term (current) drug therapy; Z66 Do not resuscitate; Z79.84 Long term (current) use of oral hypoglycemic drugs; Z79.82 Long term (current) use of aspirin; Z79.02 Long term (current) use of antithrombotics/antiplatelets
CPT/HCPCS: 36415; 70450; 71046; 80048; 80053; 81001; 82553; 82962; 83880; 84439; 84443; 84484; 85025; 87040; 93005; 96360; 99285; A9270-GY; J7030; J7050

== ENCOUNTER 2019-07-31 10:53 | Emergency (ER) | payer MEDICARE ==
[2019-07-31 12:17] LABS: ANION GAP 16.7 mmol/L (5-15)
--- NOTE | 2019-07-31 12:30 | EDM.PDOC ---
ED HPI GENERAL MEDICAL PROBLEM - General Chief Complaint: General Stated Complaint: RECTAL BLEEDING Time Seen by Provider: 07/31/19 11:00 Source of Information: Reports: EMS, RN History Limitations: Reports: Altered Mental Status (Poor historian unable to give me any significant medical history) - History of Present Illness INITIAL COMMENTS - FREE TEXT/NARRATIVE: 89 year-old female is brought in by EMS transferred from [facility] for evaluation of bleeding from the rectum. Nurses staff reported to EMS that the patient had large amounts of dark clots in her depends. Patient denies any significant discomfort, no shortness of breath, chest pain. No abdominal pain. Her past medical history is significant for significant underlying cardiovascular disease and has on anticoagulation for atrial fibrillation. She' s had more recent history of decline in her eye health and has since been moved to the nursing facility in the last year. Onset: Today Onset Date: 07/31/19 Location: Reports: Generalized Severity: Mild Improves with: Reports: None Worsens with: Reports: None Associated Symptoms: Denies: Chest Pain, Diaphoresis, Fever/Chills, Nausea/ Vomiting, Shortness of Breath - Related Data Allergies Allergy/AdvReac Type Severity Reaction Status Date / Time amlodipine Allergy Cannot Verified 07/31/19 11:07 Remember atorvastatin [From Lipitor] Allergy Cannot Verified 07/31/19 11:07 Remember carvedilol [From Coreg] Allergy Edema Verified 07/31/19 11:07 celecoxib [From Celebrex] Allergy Cannot Verified 07/31/19 11:07 Remember morphine Allergy Cannot Verified 07/31/19 11:07 Remember rosuvastatin [From Crestor] Allergy Cannot Verified 07/31/19 11:07 Remember sorbitol Allergy Cannot Verified 07/31/19 11:07 Remember Swfapwa-Ykk-Xro Reductase Allergy Cannot Verified 07/31/19 11:07 Inhibitor Remember Home Meds: Home Meds Furosemide 20 mg PO DAILY 03/28/14 [History] Levothyroxine 150 mcg PO ACBRK 03/28/14 [History] Pregabalin [Lyrica] 150 mg PO DAILY 03/28/14 [History] glipiZIDE [Glipizide] 20 mg PO BIDM 03/28/14 [History] metFORMIN [Glucophage] 1,000 mg PO BIDM 03/28/14 [History] Cholecalciferol (Vitamin D3) [Vitamin D3] 2,000 units PO DAILY@1200 01/31/18 [ History] Clopidogrel Bisulfate [Clopidogrel] 75 mg PO DAILY@1200 01/31/18 [History] Isosorbide Mononitrate [Isosorbide Mononitrate ER] 60 mg PO DAILY 01/31/18 [ History] Losartan [Cozaar] 100 mg PO DAILY 01/31/18 [History] Multivitamin [One Daily Multivitamin] 1 each PO DAILY@1200 01/31/18 [History] Cyanocobalamin (Vitamin B-12) [Cyanocobalamin Injection] 1,000 mcg IJ Q21D 08/14 [History] Nitroglycerin 1 tab SL ASDIRECTED PRN 08/14/18 [History] Acetaminophen [Acetaminophen Extra Strength] 500 mg PO Q6H PRN 09/14/18 [History ] Metoprolol Succinate [Toprol XL 50mg] 100 mg PO BEDTIME 09/14/18 [History] Pregabalin [Lyrica] 100 mg PO BEDTIME 09/14/18 [History] Apixaban [Eliquis] 5 mg PO BID tablet 09/16/18 [Rx] Aspirin [Ecotrin EC] 81 mg PO DAILY 07/31/19 [History] Cranberry Fruit Concentrate [Cranberry] 450 mg PO BID 07/31/19 [History] Hydrocortisone [Proctosol-HC] 1 supp RECTAL BID PRN 07/31/19 [History] L.acidoph,Paracasei, B.lactis [Probiotic] 1 cap PO DAILY 07/31/19 [History] Lidocaine/Transparent Dressing [Lidocaine 4% Kit] 1 patch TOP DAILY PRN [History] Propylene Glycol/Peg 400 [Systane Ultra 0.4-0.3% Eye Drp] 1 drop EYEBOTH BID PRN 07/31/19 [History] rOPINIRole HCl [Requip] 0.5 mg PO BEDTIME 07/31/19 [History] Past Medical History HEENT History: Reports: Cataract, Impaired Vision, Other (See Below) Other HEENT History: [place] with hearing aid left ear Cardiovascular History: Reports: High Cholesterol, Hypertension, ID, Stents Respiratory History: Reports: None Gastrointestinal History: Reports: GERD Genitourinary History: Reports: Urinary Incontinence 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: Musculoskeletal History: Reports: Back Pain, Chronic, Fracture Neurological History: Reports: Head Trauma, Neuropathy, Diabetic, Parkinson's, TIA Psychiatric History: Reports: None Endocrine/Metabolic History: Reports: Diabetes, Type II, Hypothyroidism, Vitamin D Deficiency Hematologic History: Reports: Anemia, B12 Deficiency Dermatologic History: Reports: None - Infectious Disease History Infectious Disease History: Reports: Chicken Pox, Influenza, Measles - Past Surgical History HEENT Surgical History: Reports: Cataract Surgery Cardiovascular Surgical History: Reports: Coronary Artery Stent Respiratory Surgical History: Reports: None GI Surgical History: Reports: Colonoscopy Female Surgical History: Reports: D&C, Other (See Below) Other Female Surgeries/Procedures: bladder stone Endocrine Surgical History: Reports: Thyroidectomy Neurological Surgical History: Reports: None Musculoskeletal Surgical History: Reports: Arthroscopic Knee Dermatological Surgical History: Reports: None Social & Family History - Family History Family Medical History: Noncontributory - Tobacco Use Smoking Status *Q: Never Smoker Second Hand Smoke Exposure: No - Caffeine Use Caffeine Use: Reports: Coffee - Recreational Drug Use Recreational Drug Use: No - Living Situation & Occupation Living situation: Reports: Occupation: Retired ED ROS GENERAL - Review of Systems Review Of Systems: See Below Constitutional: Reports: No Symptoms HEENT: Reports: No Symptoms Respiratory: Reports: No Symptoms Cardiovascular: Reports: No Symptoms GI/Abdominal: Reports: Black Stool. Denies: Nausea, Vomiting : Reports: No Symptoms Musculoskeletal: Reports: No Symptoms Skin: Reports: No Symptoms Neurological: Reports: No Symptoms Psychiatric: Reports: No Symptoms Hematologic/Lymphatic: Reports: Anemia Immunologic: Reports: No Symptoms ED EXAM, GENERAL - Physical Exam Exam: See Below General Appearance: Alert, No Apparent Distress, Obese Eye Exam: Bilateral Eye: EOMI, PERRL Ears: Normal External Exam, Normal Canal, Hearing Grossly Normal, Normal TMs, Other (Cerumen obscuring the TM of the right ear) Nose: Normal Inspection Throat/Mouth: Normal Inspection, Normal Oropharynx, Normal Voice, No Airway Compromise Head: Atraumatic, Normocephalic Neck: Normal Inspection, Supple, Non-Tender, Full Range of Motion. No: Lymphadenopathy (L), Lymphadenopathy (R) Respiratory/Chest: No Respiratory Distress, Lungs Clear, Normal Breath Sounds, No Accessory Muscle Use Cardiovascular: Irregularly Irregular GI/Abdominal: Normal Bowel Sounds, Tender (Midline just below the umbilicus). No: Distended, Guarding, Rigid Rectal (Female) Exam: Normal Exam, Hemorrhoids (No active bleeding from the right rectum or hemorrhoids) Back Exam: Normal Inspection Extremities: Normal Inspection, Normal Range of Motion, Non-Tender, No Pedal Edema, Normal Capillary Refill Neurological: Alert, Normal Cognition, No Motor/Sensory Deficits Psychiatric: Normal Affect, Normal Mood Skin Exam: Warm, Dry, Intact, Normal Color, No Rash Lymphatic: No Adenopathy EKG INTERPRETATION EKG Date: 07/31/19 Time: 14:02 Rhythm: A-Fib Rate (Beats/Min): 87 [place]: Normal QRS: Normal ST-T: Normal QT: Normal Comparison: NA - No Prior EKG EKG Interpretation Comments: Atrial fibrillation with competing junctional pacemaker Low voltage QRS Course - Vital Signs Last Recorded V/S: Last Vital Signs Temp 97.6 F 07/31/19 11:02 Pulse 84 07/31/19 11:02 Resp 16 07/31/19 11:02 BP 131/57 L 07/31/19 11:02 Pulse Ox 95 07/31/19 11:02 - Orders/Labs/Meds Orders: Active Orders 24 hr Category Date Time Status EKG Documentation Completion [RC] ASDIRECTED Care 07/31/19 13:51 Ordered CULTURE BLOOD [BC] Stat Lab 07/31/19 13:05 Received CULTURE BLOOD [BC] Stat Lab 07/31/19 13:15 Received Blood Culture x2 Reflex Set [OM.PC] Stat Oth 07/31/19 12:17 Ordered EKG 12 Lead [EK] Routine Ther 07/31/19 13:50 Ordered Labs: Laboratory Tests 07/31/19 07/31/19 07/31/19 Range/Units 11:50 11:50 11:50 WBC 19.78 H D (5.00-10.00) 10^3/uL RBC 3.97 (3.80-5.50) 10^6/uL Hgb 12.1 (12.0-16.0) g/dL Hct 36.5 L (37.0-47.0) % MCV 91.9 (82.0-92.0) fL MCH 30.5 (27.0-31.0) pg MCHC 33.2 (32.0-36.0) g/dL RDW 15.4 H (11.5-14.5) % Plt Count 277 (150-400) 10^3/uL MPV 10.6 H (7.4-10.4) fL Immature Gran % (Auto) 0.5 (0.0-5.0) % Neut % (Auto) 83.8 H (50.0-70.0) % Lymph % (Auto) 8.2 L (20.0-40.0) % [place] % (Auto) 7.2 (2.0-8.0) % Eos % (Auto) 0.2 L (1.0-3.0) % Baso % (Auto) 0.1 (0.0-1.0) % Immature Gran # (Auto) 0.10 (0.00-0.50) 10^3/uL Neut # (Auto) 16.57 H (2.50-7.00) 10^3/uL Lymph # (Auto) 1.63 (1.00-4.00) 10^3/uL [place] # (Auto) 1.43 H (0.10-0.80) 10^3/uL Eos # (Auto) 0.03 L (0.10-0.30) 10^3/uL Baso # (Auto) 0.02 (0.00-0.10) 10^3/uL PT 11.3 (8.9-11.4) SEC INR 1.1 (0.9-1.1) APTT 28.9 (23.1-31.9) SEC Sodium 140 (136-145) mmol/L Potassium 4.6 (3.3-5.3) mmol/L Chloride 101 (98-115) mmol/L Carbon Dioxide 26.9 (21.0-32.0) mmol/L Anion Gap 16.7 H (5-15) mmol/L BUN 27 H (6-25) mg/dL Creatinine 0.97 (0.51-1.17) mg/dL Est Cr Clr Drug Dosing 33.16 mL/min Estimated GFR (MDRD) 54 mL/min Glucose 264 H (75 - 99) mg/dL Calcium 9.5 (8.7-10.3) mg/dL Specimen Type Urine Color (YELLOW) Urine Appearance (CLEAR) Urine pH (5.0-9.0) Ur Specific [place] (1.005-1.030) Urine Protein (NEGATIVE) mg/dL Urine Glucose (UA) (NEGATIVE) mg/dL Urine Ketones (NEGATIVE) mg/dL Urine Occult Blood (NEGATIVE) Urine Nitrite (NEGATIVE) Urine Bilirubin (NEGATIVE) Urine Urobilinogen (0.2-1.0) E.U./dL Ur Leukocyte Esterase (NEGATIVE) Urine RBC (0-5) /HPF Urine WBC (0-5) /HPF Ur Epithelial Cells /LPF Urine Bacteria (NONE TO FEW) /HPF 07/31/19 Range/Units 12:25 WBC (5.00-10.00) 10^3/uL RBC (3.80-5.50) 10^6/uL Hgb (12.0-16.0) g/dL Hct (37.0-47.0) % MCV (82.0-92.0) fL MCH (27.0-31.0) pg MCHC (32.0-36.0) g/dL RDW (11.5-14.5) % Plt Count (150-400) 10^3/uL MPV (7.4-10.4) fL Immature Gran % (Auto) (0.0-5.0) % Neut % (Auto) (50.0-70.0) % Lymph % (Auto) (20.0-40.0) % [place] % (Auto) (2.0-8.0) % Eos % (Auto) (1.0-3.0) % Baso % (Auto) (0.0-1.0) % Immature Gran # (Auto) (0.00-0.50) 10^3/uL Neut # (Auto) (2.50-7.00) 10^3/uL Lymph # (Auto) (1.00-4.00) 10^3/uL [place] # (Auto) (0.10-0.80) 10^3/uL Eos # (Auto) (0.10-0.30) 10^3/uL Baso # (Auto) (0.00-0.10) 10^3/uL PT (8.9-11.4) SEC INR (0.9-1.1) APTT (23.1-31.9) SEC Sodium (136-145) mmol/L Potassium (3.3-5.3) mmol/L Chloride (98-115) mmol/L Carbon Dioxide (21.0-32.0) mmol/L Anion Gap (5-15) mmol/L BUN (6-25) mg/dL Creatinine (0.51-1.17) mg/dL Est Cr Clr Drug Dosing mL/min Estimated GFR (MDRD) mL/min Glucose (75 - 99) mg/dL Calcium (8.7-10.3) mg/dL Specimen Type Urincc Urine Color Yellow (YELLOW) Urine Appearance Clear (CLEAR) Urine pH 6.5 (5.0-9.0) Ur Specific [place] 1.015 (1.005-1.030) Urine Protein 30 H (NEGATIVE) mg/dL Urine Glucose (UA) 500 H (NEGATIVE) mg/dL Urine Ketones Negative (NEGATIVE) mg/dL Urine Occult Blood Negative (NEGATIVE) Urine Nitrite Negative (NEGATIVE) Urine Bilirubin Negative (NEGATIVE) Urine Urobilinogen 0.2 (0.2-1.0) E.U./dL Ur Leukocyte Esterase Negative (NEGATIVE) Urine RBC 0-5 (0-5) /HPF Urine WBC 5-10 H (0-5) /HPF Ur Epithelial Cells Few /LPF Urine Bacteria Occasional (NONE TO FEW) /HPF Meds: Medications Discontinued Medications Generic Name Dose Route Start Last Admin Trade Name Freq PRN Reason Stop Dose Admin Sodium Chloride 50 mls @ 200 mls/min 07/31/19 12:52 07/31/19 13:19 Normal Saline IV 07/31/19 12:53 200 mls/min ONETIME ONE Administration Iopamidol 100 ml 07/31/19 12:52 07/31/19 13:19 Isovue-370 (76%) IV 07/31/19 12:53 75 ml ONETIME ONE Administration - Radiology Interpretation Free Text/Narrative:: Chest x-ray PA lateral Discussion: Cardiomegaly with mild central vascular congestion. No focal infiltrates are identified. Mild subsegmental atelectasis or scarring in the imaged lung bases Impression: Mild congestive heart failure CT abdomen pelvis with IV contrast Findings: There is circumferential transmural thickening of the wall of the ascending colon There is stranding of the pericolonic mesenteric fat The gallbladder is slightly distended Gallbladder wall is normal there are extensive atheromatous calcifications The liver and spleen adrenals, aorta, pancreas, and kidneys are otherwise unremarkable There is a small hiatal hernia There pelvis shows no mass or adenopathy There is no evidence of diverticulitis There is an incidental small right renal cyst Impression: Probable malignancy involving the right side of the colon CT Results Date: 07/31/19 CT Results Time: 13:00 Departure - Departure Time of Disposition: 14:50 Disposition: DC/Tfer to [facility] 64 Condition: Fair Clinical Impression: Black tarry stools, Neutrophilic leukocytosis - Discharge Information Referrals: Julee Sandoval MD [Primary Care Provider] - Forms: ED Department Discharge - My Orders Last 24 Hours: My Active Orders 07/31/19 12:17 Blood Culture x2 Reflex Set [OM.PC] Stat 07/31/19 13:05 CULTURE BLOOD [BC] Stat 07/31/19 13:15 CULTURE BLOOD [BC] Stat 07/31/19 13:50 EKG 12 Lead [EK] Routine 07/31/19 13:51 EKG Documentation Completion [RC] ASDIRECTED - Assessment/Plan Last 24 Hours: My Active Orders 07/31/19 12:17 Blood Culture x2 Reflex Set [OM.PC] Stat 07/31/19 13:05 CULTURE BLOOD [BC] Stat 07/31/19 13:15 CULTURE BLOOD [BC] Stat 07/31/19 13:50 EKG 12 Lead [EK] Routine 07/31/19 13:51 EKG Documentation Completion [RC] ASDIRECTED Assessment:: 1. Bloody stools, dark tarry 2. Leukocytosis 3. Possible malignancy seen involving the right side of colon Plan: 1. Cipro 500 mg by mouth daily for 5 days 2. Flagyl 500 mg by mouth twice a day for 5 days 3. Hold aspirin 4. Hold Plavix 5. Hold Eliquis 6. Repeat CBC with differential on 08/02/2019 7. Colonoscopy scheduled 08/04/2019 8. I discussed these findings with Dr. Julee Hollingsworth today and she will follow- up with a CBC with differential on Saturday. 9. Patient will be transferred back to [facility].
[2019-07-31] MEDS ORDERED: Sodium Chloride 0.9% 50 ML IV ONE (12:52)
[2019-07-31] MEDS ORDERED: Iopamidol 755 Mg/ML 100 ML Bottle IV ONE (12:52)
--- NOTE | 2019-07-31 13:13 | CT ---
[id number] CT/CT Abdomen Pelvis W IV EXAM: CT Abdomen Pelvis W IV CLINICAL DATA: RECTAL BLEEDING COMPARISON: CORRELATION IS MADE WITH THE EXAM OF JUNE 15, 2014 FINDINGS: There is circumferential transmural thickening of the wall of the ascending colon There is stranding in the pericolonic mesenteric fat The gallbladder is slightly distended The gallbladder wall is normal There are extensive atheromatous calcifications The liver and spleen, adrenals, aorta, pancreas, and kidneys otherwise are unremarkable There is a small hiatal hernia The pelvis shows no mass or adenopathy There is no evidence of diverticulitis There is an incidental small right renal cyst IMPRESSION: PROBABLE MALIGNANCY INVOLVING RIGHT SIDE OF COLON CONSIDER COLONOSCOPY Jeff Zee MD 07/31/19 1194 Thank you for allowing us to participate in the care of your patient.
--- NOTE | 2019-07-31 13:58 | CR ---
[id number] RAD/RAD Chest PA And Lateral EXAM: FRONTAL AND LATERAL CHEST INDICATION: Leukocytosis. COMPARISON: September 16, 2018. DISCUSSION: Cardiomegaly with mild central vascular congestion. No focal infiltrates are identified. Mild subsegmental atelectasis or scarring in the imaged lung bases. IMPRESSION: 1. Mild congestive heart failure. Kirill Carlson MD 07/31/19 1908 Thank you for allowing us to participate in the care of your patient.
== END 2019-07-31 14:40 ==
LOC: KA.ED 10:53
DX: K92.1 Melena (principal); D72.828 Other elevated white blood cell count; I10 Essential (primary) hypertension; E11.40 Type 2 diabetes mellitus with diabetic neuropathy, unspecified; E03.9 Hypothyroidism, unspecified; Z86.73 Personal history of transient ischemic attack (TIA), and cerebral infarction without residual deficits; I25.2 Old myocardial infarction; E78.00 Pure hypercholesterolemia, unspecified; Z79.84 Long term (current) use of oral hypoglycemic drugs; Z79.899 Other long term (current) drug therapy; Z88.5 Allergy status to narcotic agent; Z88.8 Allergy status to other drugs, medicaments and biological substances; Z88.1 Allergy status to other antibiotic agents
CPT/HCPCS: 71046; 74177; 80048; 81001; 82272; 85025; 85610; 85730; 87040; 93005; 99285-25; J7050; Q9967

== ENCOUNTER 2019-08-04 12:17 | Day surgery (SDC) | payer MEDICARE ==
[2019-08-04] MEDS ORDERED: Sodium Chloride 0.9% 10 ML Syringe FLUSH PRN (12:45)
[2019-08-04] MEDS: Sodium Phosphate,Monobasic/Sodium Phosphate,Dibasic Enema 133 ML Bottle RECTAL ONE ×2 (13:13→16:46)
[2019-08-04] MEDS ORDERED: Propofol 200 MG/20 ML SDV ONE (13:29)
--- NOTE | 2019-08-04 13:44 | PCM.PN ---
- General Info Date of Service: 08/04/19 - Review of Systems Systems Review Comment:: 89-year-old female with recent episode of rectal bleeding referred for colonoscopy. She is medically stable to proceed today. Her recent history and physical is reviewed and no significant changes are noted. I have discussed the proposed colonoscopy with the patient. She agrees to proceed excepting risks. - Patient Data Vitals - Most Recent: Last Vital Signs Temp 97.4 F 08/04/19 13:29 Pulse 80 08/04/19 13:29 Resp 16 08/04/19 13:29 BP 153/73 H 08/04/19 13:29 Pulse Ox 99 08/04/19 13:29 Lab Results Last 24 Hours: Laboratory Results - last 24 hr 08/04/19 Range/Units 12:55 POC Glucose 211 H (74-106) mg/dl Med Orders - Current: Current Medications Sodium Chloride (Normal Saline) 1,000 mls @ 30 mls/hr IV ASDIRECTED YOVANY Sodium Biphosphate/Sodium Phosphate (Fleet Enema) 133 ml RECTAL ONETIME ONE Stop: 08/04/19 13:01 Sodium Chloride (Saline Flush) 10 ml FLUSH Q8HR PRN PRN Reason: keep vein open Discontinued Medications Propofol (Diprivan 20 Ml) Confirm Administered Dose 200 mg .ROUTE .STK-MED ONE Stop: 08/04/19 13:30 Sepsis Event Note - Focused Exam Vital Signs: Vital Signs Temp Pulse Resp BP Pulse Ox 08/04/19 13:29 97.4 F 80 16 153/73 H 99 Date Exam was Performed: 08/04/19 Time Exam was Performed: 13:43 - Problem List Review Problem List Initiated/Reviewed/Updated: Yes - My Orders Last 24 Hours: My Active Orders 08/03/19 16:16 Resuscitation Status Routine 08/04/19 12:45 Blood Glucose Check, Bedside [RC] ONETIME Peripheral IV Care [RC] . DIRECTED Verify Patient Consent Obtain [RC] ASDIRECTED Vital Signs [RC] PER UNIT ROUTINE Sodium Chloride 0.9% [Normal Saline] 1,000 ml IV ASDIRECTED Sodium Chloride 0.9% [Saline Flush] 10 ml FLUSH Q8HR PRN Peripheral IV Insertion Adult [OM.PC] Routine 08/04/19 13:00 Na Phos,M-B/Na Phos,DI-B [Fleet Enema] 133 ml RECTAL ONETIME ONE 08/04/19 Breakfast Nothing Per Oral Diet [DIET] - Assessment Assessment:: Rectal bleeding - Plan Plan:: Colonoscopy
[2019-08-04] MEDS: Sodium Chloride 0.9% 1,000 ML IV SCH (13:55)
--- NOTE | 2019-08-04 14:43 | PCM.OPNOTE ---
- General Post-Op/Procedure Note Date of Surgery/Procedure: 08/04/19 Operative Procedure(s): Colonoscopy with biopsy Findings: Fungating mass in right colon suggestive of malignancy Pre Op Diagnosis: Rectal bleeding Post-Op Diagnosis: Right colon mass Anesthesia Technique: MAC Primary Surgeon: Silvano Nagy Pathology: Biopsies of right colon mass EBL in mLs: 3 Complications: None Condition: Good
--- NOTE | 2019-08-04 15:54 | OR ---
DATE OF SURGERY: 08/04/2019 SURGEON: Silvano Nagy MD PREOPERATIVE DIAGNOSIS: Rectal bleeding. POSTOPERATIVE DIAGNOSIS: Right colon mass. OPERATION PERFORMED: Colonoscopy with biopsy. INDICATIONS FOR SURGERY: This 89-year-old female recently had an episode of significant rectal bleeding. She is referred for diagnostic colonoscopy. CT scan did show findings suggestive of a mass in the right colon. FINDINGS: In the patient's right colon, there is a fungating mass approximately 7-10 cm in size. This is irregular and grossly consistent with a malignancy. This is felt to be likely located near the cecum, although the scope could not be advanced past the mass and the exact level of the mass was hard to determine. DESCRIPTION OF PROCEDURE: The patient was taken to the operating room. She was given intravenous sedation. With her in the left lateral decubitus position, digital rectal exam was performed showing no rectal masses. The Olympus colonoscope was inserted into the rectum. Retroflexed examination of the rectal canal was performed. The scope was then carefully advanced through the entire length of the colon until the right colon was entered and it appeared that the ileocecal valve was identified. The light was also noted to transilluminate the abdominal wall in the right lower quadrant. In this area, the fungating mass was identified and multiple biopsies of this are taken to evaluate for possible malignancy. The scope was then slowly withdrawn sequentially re-examining the colonic segments until the entire colon and rectum had been fully examined. The scope was removed and the patient was taken from the operating room in satisfactory condition. ESTIMATED BLOOD LOSS: 3 mL. COMPLICATIONS: None. PROGNOSIS: Good. /[id number]/MODL
== END 2019-08-04 16:50 | disposition home or self-care (01) ==
LOC: KA.SDS 12:17
PROVIDERS: ATTEND Surgery
DX: K62.5 Hemorrhage of anus and rectum (principal); K63.89 Other specified diseases of intestine; I10 Essential (primary) hypertension; E11.42 Type 2 diabetes mellitus with diabetic polyneuropathy; I25.119 Atherosclerotic heart disease of native coronary artery with unspecified angina pectoris; I48.91 Unspecified atrial fibrillation; G25.81 Restless legs syndrome; E53.8 Deficiency of other specified B group vitamins; G62.9 Polyneuropathy, unspecified; E03.9 Hypothyroidism, unspecified; Z79.02 Long term (current) use of antithrombotics/antiplatelets; Z79.01 Long term (current) use of anticoagulants; Z79.82 Long term (current) use of aspirin; Z79.84 Long term (current) use of oral hypoglycemic drugs; Z79.899 Other long term (current) drug therapy; Z88.6 Allergy status to analgesic agent; Z88.8 Allergy status to other drugs, medicaments and biological substances; Z88.5 Allergy status to narcotic agent
CPT/HCPCS: 00811; 82962; J2704; J7030

== ENCOUNTER 2019-09-26 20:57 | Inpatient (IN) | payer MEDICARE, OTHER ==
[2019-09-26] MEDS ORDERED: Acetaminophen 650 MG Supp RECTAL ONE (21:31)
--- NOTE | 2019-09-26 21:54 | EDM.PDOC ---
ED HPI GENERAL MEDICAL PROBLEM - General Stated Complaint: SHORT OF BREATH Time Seen by Provider: 09/26/19 21:10 Source of Information: Reports: EMS Notes Reviewed, Family, Senior Living Records History Limitations: Reports: Other (poor historian) - History of Present Illness INITIAL COMMENTS - FREE TEXT/NARRATIVE: 89-year-old female presents in the emergency room from [facility] with respiratory distress. Patient had begin having difficulties with her breathing earlier today a. She was given several nebulizer treatments without significant improvement her O2 saturations were dropping into the 80's%. Her breathing became labored and was requiring O2 per nasal cannula. She would respond to the oxygen and raise her O2 saturations into the low 90s. She was denying chest pain. She had a recent admission into the hospital approximately 2 weeks ago for influenza and pneumonia. She is on oral antibiotics. 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 She is been tachycardic and her temperature upon arrival is 99.3. Her granddaughter accompanies her and is seen at the bedside in the ER room. Patient is a poor historian and most of her history is being obtained from her medical record and prison. Onset: Today Duration: Hour(s): Location: Reports: Generalized Severity: Moderate Improves with: Reports: None Associated Symptoms: Reports: Fever/Chills, Shortness of Breath. 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 - Related Data Allergies Allergy/AdvReac Type Severity Reaction Status Date / Time amlodipine Allergy Cannot Verified 08/04/19 13:34 Remember atorvastatin [From Lipitor] Allergy Cannot Verified 08/04/19 13:34 Remember carvedilol [From Coreg] Allergy Edema Verified 08/04/19 13:34 celecoxib [From Celebrex] Allergy Cannot Verified 08/04/19 13:34 Remember morphine Allergy Cannot Verified 08/04/19 13:34 Remember rosuvastatin [From Crestor] Allergy Cannot Verified 08/04/19 13:34 Remember sorbitol Allergy Cannot Verified 08/04/19 13:34 Remember Hzpbslf-Eoh-Eex Reductase Allergy Cannot Verified 08/04/19 13:34 Inhibitor Remember Home Meds: Home Meds Furosemide 20 mg PO DAILY 03/28/14 [History] Levothyroxine 150 mcg PO ACBRK 03/28/14 [History] Pregabalin [Lyrica] 150 mg PO DAILY 03/28/14 [History] glipiZIDE [Glipizide] 20 mg PO BIDM 03/28/14 [History] metFORMIN [Glucophage] 1,000 mg PO BIDM 03/28/14 [History] Cholecalciferol (Vitamin D3) [Vitamin D3] 2,000 units PO DAILY@1200 01/31/18 [ History] Clopidogrel Bisulfate [Clopidogrel] 75 mg PO DAILY@1200 01/31/18 [History] Isosorbide Mononitrate [Isosorbide Mononitrate ER] 60 mg PO DAILY 01/31/18 [ History] Losartan [Cozaar] 100 mg PO DAILY 01/31/18 [History] Multivitamin [One Daily Multivitamin] 1 each PO DAILY@1200 01/31/18 [History] Cyanocobalamin (Vitamin B-12) [Cyanocobalamin Injection] 1,000 mcg IJ Q21D 08/14 [History] Nitroglycerin 1 tab SL ASDIRECTED PRN 08/14/18 [History] Acetaminophen [Acetaminophen Extra Strength] 500 mg PO Q6H PRN 09/14/18 [History ] Metoprolol Succinate [Toprol XL 50mg] 100 mg PO BEDTIME 09/14/18 [History] Pregabalin [Lyrica] 100 mg PO BEDTIME 09/14/18 [History] Apixaban [Eliquis] 5 mg PO BID tablet 09/16/18 [Rx] Aspirin [Ecotrin EC] 81 mg PO DAILY 07/31/19 [History] Cranberry Fruit Concentrate [Cranberry] 450 mg PO BID 07/31/19 [History] Hydrocortisone [Proctosol-HC] 1 supp RECTAL BID PRN 07/31/19 [History] L.acidoph,Paracasei, B.lactis [Probiotic] 1 cap PO DAILY 07/31/19 [History] Lidocaine/Transparent Dressing [Lidocaine 4% Kit] 1 patch TOP DAILY PRN [History] Propylene Glycol/Peg 400 [Systane Ultra 0.4-0.3% Eye Drp] 1 drop EYEBOTH BID PRN 07/31/19 [History] rOPINIRole HCl [Requip] 0.5 mg PO BEDTIME 07/31/19 [History] Ciprofloxacin [Ciprofloxacin HCl] 500 mg PO DAILY 08/04/19 [History] metroNIDAZOLE [Flagyl] 500 mg PO BID 08/04/19 [History] Past Medical History HEENT History: Reports: Cataract, Hard of Hearing, Impaired Vision, Other (See Below) Other HEENT History: [place] with hearing aid left ear Cardiovascular History: Reports: Afib, Angina, Arrhythmia, Heart Failure, High Cholesterol, Hypertension, [place], SOB on Exertion, Stents Respiratory History: Reports: Bronchitis, Recurrent, SOB Gastrointestinal History: Reports: Chronic Diarrhea, GERD, Hemorrhoids Genitourinary History: Reports: Urinary Incontinence, UTI, Recurrent 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: Musculoskeletal History: Reports: Back Pain, Chronic, Fracture Neurological History: Reports: Head Trauma, Neuropathy, Diabetic, Neuropathy, Peripheral, Parkinson's, TIA, Other (See Below) Other Neuro History: hand tremors Psychiatric History: Reports: None Endocrine/Metabolic History: Reports: Diabetes, Type II, Hypothyroidism, Obesity /BMI 30+, Vitamin D Deficiency Hematologic History: Reports: Anemia, B12 Deficiency Other Hematologic History: intrinsic factor deficiency Dermatologic History: Reports: None - Infectious Disease History Infectious Disease History: Reports: Chicken Pox, Influenza, Measles, Mumps - Past Surgical History HEENT Surgical History: Reports: Cataract Surgery, Eye Surgery, Oral Surgery Cardiovascular Surgical History: Reports: Coronary Artery Stent, Other (See Below) Other Cardiovascular Surgeries/Procedures: Endocarditis Respiratory Surgical History: Reports: None GI Surgical History: Reports: Colonoscopy Female Surgical History: Reports: D&C, Other (See Below) Other Female Surgeries/Procedures: bladder stone Endocrine Surgical History: Reports: Thyroidectomy Neurological Surgical History: Reports: None Musculoskeletal Surgical History: Reports: Arthroscopic Knee Dermatological Surgical History: Reports: None Social & Family History - Family History Family Medical History: Noncontributory - Caffeine Use Caffeine Use: Reports: Coffee - Living Situation & Occupation Living situation: Reports: Occupation: Retired ED ROS GENERAL - Review of Systems Review Of Systems: See Below Constitutional: Reports: Fever. Denies: Chills HEENT: Reports: No Symptoms Respiratory: Reports: Shortness of Breath Cardiovascular: Reports: Orthopnea, PND. Denies: Chest Pain Endocrine: Reports: High Glucose GI/Abdominal: Denies: Abdominal Pain : Reports: No Symptoms Musculoskeletal: Reports: No Symptoms Skin: Denies: Cyanosis, Diaphoresis Neurological: Reports: Confusion, Trouble Speaking Psychiatric: Reports: Agitation, Confusion Hematologic/Lymphatic: Reports: No Symptoms ED EXAM, GENERAL - Physical Exam Exam: See Below Exam Limited By: Respiratory Distress General Appearance: Alert, Moderate Distress Eye Exam: Bilateral Eye: EOMI, PERRL Ears: Normal External Exam, Normal Canal, Hearing Grossly Normal, Normal TMs Nose: Normal Inspection, Normal Mucosa Throat/Mouth: Normal Inspection, No Airway Compromise Head: Atraumatic, Normocephalic Neck: Normal Inspection. No: Lymphadenopathy (L), Lymphadenopathy (R) Respiratory/Chest: Respiratory Distress, Crackles (bilateral) Cardiovascular: Tachycardia Peripheral Pulses: 1+: Carotid (L), Carotid (R), Radial (L), Radial (R) GI/Abdominal: Soft, Other (abdominal obesity) Back Exam: Normal Inspection, Full Range of Motion Extremities: Normal Inspection Neurological: Alert, Confused Psychiatric: Anxious Skin Exam: Cool EKG INTERPRETATION EKG Date: 09/26/19 Time: 21:35 Rhythm: A-Fib Rate (Beats/Min): 149 [place]: LAD-Left [place] Deviation QRS: Wide ST-T: Normal QT: Normal Comparison: NA - No Prior EKG EKG Interpretation Comments: Atrial fibrillation with rapid ventricular response [place] deviation Nonspecific intraventricular block Possible lateral infarct age undetermined Abnormal ECG Course - Vital Signs Last Recorded V/S: Last Vital Signs Temp 99.3 F 09/26/19 21:05 Pulse 138 H 09/26/19 22:31 Resp 27 H 09/26/19 22:31 BP 143/58 H 09/26/19 22:31 Pulse Ox 89 L 09/26/19 22:31 - Orders/Labs/Meds Orders: Active Orders 24 hr Category Date Time Status Patient Status [ADT] Routine ADT 09/26/19 22:25 Ordered Antiembolic Devices [RC] PER UNIT ROUTINE Care 09/26/19 22:29 Ordered Blood Glucose Check, Bedside [RC] TIDMEALS Care 09/26/19 22:25 Ordered Cardiac Monitoring [RC] CONTINUOUS Care 09/26/19 22:27 Ordered EKG Documentation Completion [RC] ASDIRECTED Care 09/26/19 21:27 Active Height and Weight [RC] DAILY Care 09/26/19 22:25 Ordered Intake and Output [RC] QSHIFT Care 09/26/19 22:27 Ordered Oxygen Therapy [RC] PRN Care 09/26/19 22:25 Ordered Pulse Oximetry [RC] CONTINUOUS Care 09/26/19 22:27 Ordered RT Aerosol Therapy [RC] ASDIRECTED Care 09/26/19 22:32 Ordered Urinary Catheter Assessment [RC] ASDIRECTED Care 09/26/19 22:25 Ordered VTE/DVT Education [RC] PER UNIT ROUTINE Care 09/26/19 22:25 Ordered Vital Signs [RC] Q4H Care 09/26/19 22:25 Ordered Heart Healthy Diet [DIET] Diet 09/27/19 Breakfast Ordered Chest 1V Frontal [CR] Stat Exams 09/26/19 21:09 Ordered BASIC METABOLIC PANEL,BMP [CHEM] AM Lab 09/27/19 05:11 Ordered CBC WITH AUTO DIFF [HEME] AM Lab 09/27/19 05:11 Ordered CULTURE BLOOD [BC] Stat Lab 09/26/19 22:00 Received CULTURE BLOOD [BC] Stat Lab 09/26/19 22:15 Received LACTIC ACID [CHEM] Stat Lab 09/26/19 22:15 Received PROCALCITONIN [REF] Routine Lab 09/26/19 22:42 Ordered Albuterol/Ipratropium [DuoNeb 3.0-0.5 MG/3 ML] Med 09/26/19 22:25 Ordered 3 ml NEB Q4H PRN Apixaban [Eliquis] Med 09/27/19 09:00 Ordered 5 mg PO BID Aspirin [Halfprin] Med 09/27/19 09:00 Ordered 81 mg PO DAILY Cholecalciferol (Vitamin D3) [Vitamin D3] Med 09/27/19 12:00 Ordered 2,000 units PO DAILY@1200 Clopidogrel [Plavix] Med 09/27/19 12:00 Ordered 75 mg PO DAILY@1200 Cranberry Fruit Concentrate [Cranberry] Med 09/27/19 09:00 Ordered 450 mg PO BID Cyanocobalamin (Vitamin B12) [Vitamin B12] Med 09/26/19 22:45 Ordered 1,000 mcg IM Q21D Furosemide [Lasix] Med 09/26/19 22:15 Active 40 mg IVPUSH DAILY Hydrocortisone [Proctozone-HC 2.5% Crm] Med 09/26/19 22:35 Ordered 1 supp TOP BID PRN Isosorbide Mononitrate [Imdur] Med 09/27/19 09:00 Ordered 60 mg PO DAILY L.acidoph,Paracasei, B.lactis [Probiotic] Med 09/27/19 09:00 Ordered 1 cap PO DAILY Levofloxacin/Dextrose 5%-Water [Levaquin in D5W 500 MG/ Med 09/26/19 22:15 Active 100 ML] 500 mg Premix Bag 1 bag IV Q24H Levothyroxine [Levothyroxine] Med 09/27/19 07:00 Ordered 150 mcg PO ACBRK Lidocaine 4% Med 09/26/19 22:35 Ordered 1 patch TOP DAILY PRN Losartan [Cozaar] Med 09/27/19 09:00 Ordered 100 mg PO DAILY Metoprolol Succinate [Toprol XL] Med 09/27/19 21:00 Ordered 100 mg PO BEDTIME Multivitamin [One Daily Multivitamin] Med 09/27/19 12:00 Ordered 1 each PO DAILY@1200 Nitroglycerin [Nitrostat] Med 09/26/19 22:35 Ordered 0.4 mg SL ASDIRECTED PRN Ondansetron [Zofran] Med 09/26/19 22:25 Ordered 4 mg IV Q6H PRN Pregabalin [Lyrica] Med 09/27/19 21:00 Ordered 100 mg PO BEDTIME Pregabalin [Lyrica] Med 09/27/19 09:00 Ordered 150 mg PO DAILY Propylene Glycol/Peg 400 [Systane Ultra 0.4-0.3% Eye Med 09/26/19 22:35 Ordered Drp] 1 drop EYEBOTH BID PRN Sodium Chloride 0.9% [Saline Flush] Med 09/26/19 22:25 Ordered 10 ml FLUSH Q8HR PRN cefTRIAXone [Rocephin] Med 09/26/19 22:15 Active 2 gm IVPUSH ONETIME glipiZIDE [Glucotrol] Med 09/27/19 08:00 Ordered 20 mg PO BIDM metFORMIN [Glucophage] Med 09/27/19 08:00 Ordered 1,000 mg PO BIDM metroNIDAZOLE [Flagyl] Med 09/27/19 09:00 Ordered 500 mg PO BID rOPINIRole [Requip] Med 09/27/19 21:00 Ordered 0.5 mg PO BEDTIME Antiembolic Hose [OM.PC] Per Unit Routine Oth 09/26/19 22:28 Ordered Blood Culture x2 Reflex Set [OM.PC] Stat Oth 09/26/19 22:07 Ordered Foot Pump [OM.PC] Per Unit Routine Oth 09/26/19 22:28 Ordered Saline Lock Insert [OM.PC] Routine Oth 09/26/19 22:25 Ordered Sequential Compression Device [OM.PC] Per Unit Routine Oth 09/26/19 22:28 Ordered Resuscitation Status Routine Resus Stat 09/26/19 22:25 Ordered EKG 12 Lead [EK] Routine Ther 09/26/19 21:26 Ordered Medication Orders Albuterol/Ipratropium (Duoneb 3.0-0.5 Mg/3 Ml) 3 ml NEB Q4H PRN PRN Reason: Shortness Of Breath/wheezing Apixaban (Eliquis) 5 mg PO BID [facility] Aspirin (Halfprin) 81 mg PO DAILY [facility] Ceftriaxone Sodium (Rocephin) 2 gm IVPUSH ONETIME [facility] Cholecalciferol (Vitamin D3) mcg PO DAILY@1200 [facility] Clopidogrel Bisulfate (Plavix) 75 mg PO DAILY@1200 [facility] Cyanocobalamin (Vitamin B12) 1,000 mcg IM Q21D [facility] Furosemide (Lasix) 40 mg IVPUSH DAILY [facility] Last Admin: 09/26/19 22:25 Dose: 40 mg Glipizide (Glucotrol) 20 mg PO BIDM [facility] Hydrocortisone (Proctozone-Hc 2.5% Crm) gm TOP BID PRN PRN Reason: Hemorrhoids Levofloxacin/Dextrose 500 mg/ (Premix) 100 mls @ 100 mls/hr IV Q24H [facility] Isosorbide Mononitrate (Imdur) 60 mg PO DAILY [facility] Metoprolol Succinate (Toprol Xl) 100 mg PO BEDTIME [facility] Metronidazole (Flagyl) 500 mg PO BID [facility] Nitroglycerin (Nitrostat) 0.4 mg SL ASDIRECTED PRN PRN Reason: Chest Pain Non-Formulary Medication (Cranberry Fruit Concentrate [Cranberry]) 450 mg PO BID [facility] Non-Formulary Medication (L.Acidoph,Paracasei, B.Lactis [Probiotic]) 1 cap PO DAILY [facility] Non-Formulary Medication (Levothyroxine [Levothyroxine]) 150 mcg PO ACBRK [facility] Non-Formulary Medication (Lidocaine 4%) 1 patch TOP DAILY PRN PRN Reason: Pain Non-Formulary Medication (Losartan [Cozaar]) 100 mg PO DAILY [facility] Non-Formulary Medication (Metformin [Glucophage]) 1,000 mg PO BIDM [facility] Non-Formulary Medication (Multivitamin [One Daily Multivitamin]) 1 each PO DAILY@1200 [facility] Non-Formulary Medication (Pregabalin [Lyrica]) 150 mg PO DAILY [facility] Non-Formulary Medication (Propylene Glycol/Peg 400 [Systane Ultra 0.4-0.3% Eye Drp]) 1 drop EYEBOTH BID PRN PRN Reason: Dry Eyes Ondansetron HCl (Zofran) 4 mg IV Q6H PRN PRN Reason: Nausea/Vomiting Pregabalin (Lyrica) 100 mg PO BEDTIME [facility] Ropinirole HCl (Requip) 0.5 mg PO BEDTIME [facility] Sodium Chloride (Saline Flush) 10 ml FLUSH Q8HR PRN PRN Reason: keep vein open Labs: Laboratory Tests 09/26/19 09/26/19 09/26/19 Range/Units 09:20 09:20 09:20 WBC 28.71 H D (5.00-10.00) 10^3/uL RBC 4.08 (3.80-5.50) 10^6/uL Hgb 11.5 L D (12.0-16.0) g/dL Hct 36.2 L (37.0-47.0) % MCV 88.7 D (82.0-92.0) fL MCH 28.2 (27.0-31.0) pg MCHC 31.8 L (32.0-36.0) g/dL RDW 15.4 H (11.5-14.5) % Plt Count 327 (150-400) 10^3/uL MPV 10.7 H (7.4-10.4) fL Immature Gran % (Auto) 1.4 (0.0-5.0) % Neut % (Auto) 81.5 H (50.0-70.0) % Lymph % (Auto) 11.7 L (20.0-40.0) % [place] % (Auto) 5.2 (2.0-8.0) % Eos % (Auto) 0.1 L (1.0-3.0) % Baso % (Auto) 0.1 (0.0-1.0) % Immature Gran # (Auto) 0.39 (0.00-0.50) 10^3/uL Neut # (Auto) 23.39 H (2.50-7.00) 10^3/uL Lymph # (Auto) 3.37 (1.00-4.00) 10^3/uL [place] # (Auto) 1.49 H (0.10-0.80) 10^3/uL Eos # (Auto) 0.03 L (0.10-0.30) 10^3/uL Baso # (Auto) 0.04 (0.00-0.10) 10^3/uL ESR 30 H (0-20) mm/hr Sodium 134 L (136-145) mmol/L Potassium 5.5 H (3.3-5.3) mmol/L Chloride 97 L (98-115) mmol/L Carbon Dioxide 18.0 L (21.0-32.0) mmol/L Anion Gap 24.5 H (5-15) mmol/L BUN 31 H (6-25) mg/dL Creatinine 1.10 (0.51-1.17) mg/dL Est Cr Clr Drug Dosing 35.66 mL/min Estimated GFR (MDRD) 47 mL/min Glucose 473 H (75 - 99) mg/dL Calcium 8.9 (8.7-10.3) mg/dL Troponin I 0.05 (0.00-0.070) ng/mL C-Reactive Protein 2.8 H (0.0-0.9) mg/dL B-Natriuretic Peptide 316 H (0-100) pg/mL Specimen Type Urine Color (YELLOW) Urine Appearance (CLEAR) Urine pH (5.0-9.0) Ur Specific [place] (1.005-1.030) Urine Protein (NEGATIVE) mg/dL Urine Glucose (UA) (NEGATIVE) mg/dL Urine Ketones (NEGATIVE) mg/dL Urine Occult Blood (NEGATIVE) Urine Nitrite (NEGATIVE) Urine Bilirubin (NEGATIVE) Urine Urobilinogen (0.2-1.0) E.U./dL Ur Leukocyte Esterase (NEGATIVE) Urine RBC (0-5) /HPF Urine WBC (0-5) /HPF Ur Epithelial Cells /LPF Urine Bacteria (NONE TO FEW) /HPF 09/26/19 Range/Units 22:00 WBC (5.00-10.00) 10^3/uL RBC (3.80-5.50) 10^6/uL Hgb (12.0-16.0) g/dL Hct (37.0-47.0) % MCV (82.0-92.0) fL MCH (27.0-31.0) pg MCHC (32.0-36.0) g/dL RDW (11.5-14.5) % Plt Count (150-400) 10^3/uL MPV (7.4-10.4) fL Immature Gran % (Auto) (0.0-5.0) % Neut % (Auto) (50.0-70.0) % Lymph % (Auto) (20.0-40.0) % [place] % (Auto) (2.0-8.0) % Eos % (Auto) (1.0-3.0) % Baso % (Auto) (0.0-1.0) % Immature Gran # (Auto) (0.00-0.50) 10^3/uL Neut # (Auto) (2.50-7.00) 10^3/uL Lymph # (Auto) (1.00-4.00) 10^3/uL [place] # (Auto) (0.10-0.80) 10^3/uL Eos # (Auto) (0.10-0.30) 10^3/uL Baso # (Auto) (0.00-0.10) 10^3/uL ESR (0-20) mm/hr Sodium (136-145) mmol/L Potassium (3.3-5.3) mmol/L Chloride (98-115) mmol/L Carbon Dioxide (21.0-32.0) mmol/L Anion Gap (5-15) mmol/L BUN (6-25) mg/dL Creatinine (0.51-1.17) mg/dL Est Cr Clr Drug Dosing mL/min Estimated GFR (MDRD) mL/min Glucose (75 - 99) mg/dL Calcium (8.7-10.3) mg/dL Troponin I (0.00-0.070) ng/mL C-Reactive Protein (0.0-0.9) mg/dL B-Natriuretic Peptide (0-100) pg/mL Specimen Type [place] Urine Color Light yellow (YELLOW) Urine Appearance Clear (CLEAR) Urine pH 6.0 (5.0-9.0) Ur Specific [place] 1.020 (1.005-1.030) Urine Protein 30 H (NEGATIVE) mg/dL Urine Glucose (UA) 500 H (NEGATIVE) mg/dL Urine Ketones Negative (NEGATIVE) mg/dL Urine Occult Blood Negative (NEGATIVE) Urine Nitrite Negative (NEGATIVE) Urine Bilirubin Negative (NEGATIVE) Urine Urobilinogen 0.2 (0.2-1.0) E.U./dL Ur Leukocyte Esterase Negative (NEGATIVE) Urine RBC 0-5 (0-5) /HPF Urine WBC 10-20 H (0-5) /HPF Ur Epithelial Cells Few /LPF Urine Bacteria Occasional (NONE TO FEW) /HPF Meds: Medications Generic Name Dose Route Start Last Admin Trade Name Freq PRN Reason Stop Dose Admin Albuterol/Ipratropium 3 ml 09/26/19 22:25 Duoneb 3.0-0.5 Mg/3 Ml NEB Q4H PRN Shortness Of Breath/wheezing Apixaban 5 mg 09/27/19 09:00 Eliquis PO BID [facility] Aspirin 81 mg 09/27/19 09:00 Halfprin PO DAILY [facility] Ceftriaxone Sodium 2 gm 09/26/19 22:15 Rocephin IVPUSH ONETIME [facility] Cholecalciferol mcg 09/27/19 12:00 Vitamin D3 PO DAILY@1200 [facility] Clopidogrel Bisulfate 75 mg 09/27/19 12:00 Plavix PO DAILY@1200 [facility] Cyanocobalamin 1,000 mcg 09/26/19 22:45 Vitamin B12 IM Q21D [facility] Furosemide 40 mg 09/26/19 22:15 09/26/19 22:25 Lasix IVPUSH 40 mg DAILY [facility] Administration Glipizide 20 mg 09/27/19 08:00 Glucotrol PO BIDM [facility] Hydrocortisone gm 09/26/19 22:35 Proctozone-Hc 2.5% Crm TOP BID PRN Hemorrhoids Levofloxacin/Dextrose 500 mg/ 100 mls @ 100 mls/hr 09/26/19 22:15 Premix IV Q24H [facility] Isosorbide Mononitrate 60 mg 09/27/19 09:00 Imdur PO DAILY [facility] Metoprolol Succinate 100 mg 09/27/19 21:00 Toprol Xl PO BEDTIME [facility] Metronidazole 500 mg 09/27/19 09:00 Flagyl PO BID [facility] Nitroglycerin 0.4 mg 09/26/19 22:35 Nitrostat SL ASDIRECTED PRN Chest Pain Non-Formulary Medication 450 mg 09/27/19 09:00 Cranberry Fruit Concentrate [Cranberry] PO BID [facility] Non-Formulary Medication 1 cap 09/27/19 09:00 L.Acidoph,Paracasei, B.Lactis [Probiotic] PO DAILY [facility] Non-Formulary Medication 150 mcg 09/27/19 07:00 Levothyroxine [Levothyroxine] PO ACBRK [facility] Non-Formulary Medication 1 patch 09/26/19 22:35 Lidocaine 4% TOP DAILY PRN Pain Non-Formulary Medication 100 mg 09/27/19 09:00 Losartan [Cozaar] PO DAILY [facility] Non-Formulary Medication 1,000 mg 09/27/19 08:00 Metformin [Glucophage] PO BIDM [facility] Non-Formulary Medication 1 each 09/27/19 12:00 Multivitamin [One Daily Multivitamin] PO DAILY@1200 [facility] Non-Formulary Medication 150 mg 09/27/19 09:00 Pregabalin [Lyrica] PO DAILY [facility] Non-Formulary Medication 1 drop 09/26/19 22:35 Propylene Glycol/Peg 400 [Systane Ultra 0.4-0.3% Eye Drp] EYEBOTH BID PRN Dry Eyes Ondansetron HCl 4 mg 09/26/19 22:25 Zofran IV Q6H PRN Nausea/Vomiting Pregabalin 100 mg 09/27/19 21:00 Lyrica PO BEDTIME [facility] Ropinirole HCl 0.5 mg 09/27/19 21:00 Requip PO BEDTIME [facility] Sodium Chloride 10 ml 09/26/19 22:25 Saline Flush FLUSH Q8HR PRN keep vein open Discontinued Medications Generic Name Dose Route Start Last Admin Trade Name Freq PRN Reason Stop Dose Admin Acetaminophen 650 mg 09/26/19 21:31 Tylenol RECTAL 09/26/19 21:32 NOW ONE - Radiology Interpretation Free Text/Narrative:: Chest x-ray one view portable Findings: Cardiomegaly is present. Moderate to advanced diffuse interstitial prominence. This likely represents pulmonary edema Progression: Cardiomegaly with moderate to advanced pulmonary edema Departure - Departure Time of Disposition: 22:54 Disposition: Admitted As Inpatient 67 Condition: Poor Clinical Impression: SARS (severe acute respiratory syndrome) Pulmonary edema Qualifiers: Chronicity: acute Qualified Code(s): J81.0 - Acute pulmonary edema - Discharge Information Referrals: Julee Sandoval MD [Primary Care Provider] - Sepsis Event Note - Focused Exam Vital Signs: Vital Signs Temp Pulse Resp BP Pulse Ox 09/26/19 22:31 138 H 27 H 143/58 H 89 L 09/26/19 22:22 152 H 32 H 138/75 09/26/19 22:00 142 H 134/73 09/26/19 21:30 124 H 123/74 09/26/19 21:05 99.3 F 128 H 22 H 140/104 H 91 L Date Exam was Performed: 09/26/19 Time Exam was Performed: 22:45 - My Orders Last 24 Hours: My Active Orders 09/26/19 21:09 Chest 1V Frontal [CR] Stat 09/26/19 21:26 EKG 12 Lead [EK] Routine 09/26/19 21:27 EKG Documentation Completion [RC] ASDIRECTED 09/26/19 22:00 CULTURE BLOOD [BC] Stat 09/26/19 22:07 Blood Culture x2 Reflex Set [OM.PC] Stat 09/26/19 22:15 CULTURE BLOOD [BC] Stat LACTIC ACID [CHEM] Stat Furosemide [Lasix] 40 mg IVPUSH DAILY Levofloxacin/Dextrose 5%-Water [Levaquin in D5W 500 MG/100 ML] 500 mg Premix Bag 1 bag IV Q24H cefTRIAXone [Rocephin] 2 gm IVPUSH ONETIME 09/26/19 22:25 Patient Status [ADT] Routine Blood Glucose Check, Bedside [RC] TIDMEALS Height and Weight [RC] DAILY Oxygen Therapy [RC] PRN Urinary Catheter Assessment [RC] ASDIRECTED VTE/DVT Education [RC] PER UNIT ROUTINE Vital Signs [RC] Q4H Albuterol/Ipratropium [DuoNeb 3.0-0.5 MG/3 ML] 3 ml NEB Q4H PRN Ondansetron [Zofran] 4 mg IV Q6H PRN Sodium Chloride 0.9% [Saline Flush] 10 ml FLUSH Q8HR PRN Saline Lock Insert [OM.PC] Routine Resuscitation Status Routine 09/26/19 22:27 Cardiac Monitoring [RC] CONTINUOUS Intake and Output [RC] QSHIFT Pulse Oximetry [RC] CONTINUOUS 09/26/19 22:28 Antiembolic Hose [OM.PC] Per Unit Routine Foot Pump [OM.PC] Per Unit Routine Sequential Compression Device [OM.PC] Per Unit Routine 09/26/19 22:29 Antiembolic Devices [RC] PER UNIT ROUTINE 09/26/19 22:32 RT Aerosol Therapy [RC] ASDIRECTED 09/26/19 22:35 Hydrocortisone [Proctozone-HC 2.5% Crm] 1 supp TOP BID PRN Lidocaine 4% 1 patch TOP DAILY PRN Nitroglycerin [Nitrostat] 0.4 mg SL ASDIRECTED PRN Propylene Glycol/Peg 400 [Systane Ultra 0.4-0.3% Eye Drp] 1 drop EYEBOTH BID PRN 09/26/19 22:42 PROCALCITONIN [REF] Routine 09/26/19 22:45 Cyanocobalamin (Vitamin B12) [Vitamin B12] 1,000 mcg IM Q21D 09/27/19 05:11 BASIC METABOLIC PANEL,BMP [CHEM] AM CBC WITH AUTO DIFF [HEME] AM 09/27/19 07:00 Levothyroxine [Levothyroxine] 150 mcg PO ACBRK 09/27/19 08:00 glipiZIDE [Glucotrol] 20 mg PO BIDM metFORMIN [Glucophage] 1,000 mg PO BIDM 09/27/19 09:00 Apixaban [Eliquis] 5 mg PO BID Aspirin [Halfprin] 81 mg PO DAILY Cranberry Fruit Concentrate [Cranberry] 450 mg PO BID Isosorbide Mononitrate [Imdur] 60 mg PO DAILY L.acidoph,Paracasei, B.lactis [Probiotic] 1 cap PO DAILY Losartan [Cozaar] 100 mg PO DAILY Pregabalin [Lyrica] 150 mg PO DAILY metroNIDAZOLE [Flagyl] 500 mg PO BID 09/27/19 12:00 Cholecalciferol (Vitamin D3) [Vitamin D3] 2,000 units PO DAILY@1200 Clopidogrel [Plavix] 75 mg PO DAILY@1200 Multivitamin [One Daily Multivitamin] 1 each PO DAILY@1200 09/27/19 21:00 Metoprolol Succinate [Toprol XL] 100 mg PO BEDTIME Pregabalin [Lyrica] 100 mg PO BEDTIME rOPINIRole [Requip] 0.5 mg PO BEDTIME 09/27/19 Breakfast Heart Healthy Diet [DIET] - Assessment/Plan Last 24 Hours: My Active Orders 09/26/19 21:09 Chest 1V Frontal [CR] Stat 09/26/19 21:26 EKG 12 Lead [EK] Routine 09/26/19 21:27 EKG Documentation Completion [RC] ASDIRECTED 09/26/19 22:00 CULTURE BLOOD [BC] Stat 09/26/19 22:07 Blood Culture x2 Reflex Set [OM.PC] Stat 09/26/19 22:15 CULTURE BLOOD [BC] Stat LACTIC ACID [CHEM] Stat Furosemide [Lasix] 40 mg IVPUSH DAILY Levofloxacin/Dextrose 5%-Water [Levaquin in D5W 500 MG/100 ML] 500 mg Premix Bag 1 bag IV Q24H cefTRIAXone [Rocephin] 2 gm IVPUSH ONETIME 09/26/19 22:25 Patient Status [ADT] Routine Blood Glucose Check, Bedside [RC] TIDMEALS Height and Weight [RC] DAILY Oxygen Therapy [RC] PRN Urinary Catheter Assessment [RC] ASDIRECTED VTE/DVT Education [RC] PER UNIT ROUTINE Vital Signs [RC] Q4H Albuterol/Ipratropium [DuoNeb 3.0-0.5 MG/3 ML] 3 ml NEB Q4H PRN Ondansetron [Zofran] 4 mg IV Q6H PRN Sodium Chloride 0.9% [Saline Flush] 10 ml FLUSH Q8HR PRN Saline Lock Insert [OM.PC] Routine Resuscitation Status Routine 09/26/19 22:27 Cardiac Monitoring [RC] CONTINUOUS Intake and Output [RC] QSHIFT Pulse Oximetry [RC] CONTINUOUS 09/26/19 22:28 Antiembolic Hose [OM.PC] Per Unit Routine Foot Pump [OM.PC] Per Unit Routine Sequential Compression Device [OM.PC] Per Unit Routine 09/26/19 22:29 Antiembolic Devices [RC] PER UNIT ROUTINE 09/26/19 22:32 RT Aerosol Therapy [RC] ASDIRECTED 09/26/19 22:35 Hydrocortisone [Proctozone-HC 2.5% Crm] 1 supp TOP BID PRN Lidocaine 4% 1 patch TOP DAILY PRN Nitroglycerin [Nitrostat] 0.4 mg SL ASDIRECTED PRN Propylene Glycol/Peg 400 [Systane Ultra 0.4-0.3% Eye Drp] 1 drop EYEBOTH BID PRN 09/26/19 22:42 PROCALCITONIN [REF] Routine 09/26/19 22:45 Cyanocobalamin (Vitamin B12) [Vitamin B12] 1,000 mcg IM Q21D 09/27/19 05:11 BASIC METABOLIC PANEL,BMP [CHEM] AM CBC WITH AUTO DIFF [HEME] AM 09/27/19 07:00 Levothyroxine [Levothyroxine] 150 mcg PO ACBRK 09/27/19 08:00 glipiZIDE [Glucotrol] 20 mg PO BIDM metFORMIN [Glucophage] 1,000 mg PO BIDM 09/27/19 09:00 Apixaban [Eliquis] 5 mg PO BID Aspirin [Halfprin] 81 mg PO DAILY Cranberry Fruit Concentrate [Cranberry] 450 mg PO BID Isosorbide Mononitrate [Imdur] 60 mg PO DAILY L.acidoph,Paracasei, B.lactis [Probiotic] 1 cap PO DAILY Losartan [Cozaar] 100 mg PO DAILY Pregabalin [Lyrica] 150 mg PO DAILY metroNIDAZOLE [Flagyl] 500 mg PO BID 09/27/19 12:00 Cholecalciferol (Vitamin D3) [Vitamin D3] 2,000 units PO DAILY@1200 Clopidogrel [Plavix] 75 mg PO DAILY@1200 Multivitamin [One Daily Multivitamin] 1 each PO DAILY@1200 09/27/19 21:00 Metoprolol Succinate [Toprol XL] 100 mg PO BEDTIME Pregabalin [Lyrica] 100 mg PO BEDTIME rOPINIRole [Requip] 0.5 mg PO BEDTIME 09/27/19 Breakfast Heart Healthy Diet [DIET] Assessment:: Sepsis SARS Pulmonary edema Atrial fibrillation with RVR Plan: 1. Admit to inpatient 2. Patient will be started on Rocephin and Levaquin IV 3. Lasix 40 mg IV, daily weight, close I/O monitoring 4. A.m. lab work is ordered 5. O2 supplementation.
[2019-09-26 22:03] LABS: ANION GAP 24.5 mmol/L (5-15)
[2019-09-26] MEDS ORDERED: cefTRIAXone 2 GM Vial IVPUSH SCH (22:15)
[2019-09-26] MEDS ORDERED: Levofloxacin/Dextrose 5%-Water 500 MG in Premix Bag 1 BAG IV SCH (22:15)
[2019-09-26] MEDS: Furosemide 40 MG/4 ML VIAL IVPUSH SCH (22:25)
[2019-09-26] MEDS ORDERED: Albuterol/Ipratropium 3.0-0.5 MG/3 ML Neb Soln NEB PRN (22:25)
[2019-09-26] MEDS ORDERED: Ondansetron 4 MG/2 ML SDV IV PRN (22:25)
[2019-09-26] MEDS ORDERED: PROPYLENE GLYCOL EYEBOTH PRN (22:35)
[2019-09-26] MEDS ORDERED: LIDOCAINE 4% TOP PRN (22:35)
[2019-09-26] MEDS ORDERED: [UNRECOGNIZED DRUG - OTHER] EYEBOTH PRN (22:35)
[2019-09-26] MEDS ORDERED: PEG EYEBOTH PRN (22:35)
[2019-09-26] MEDS ORDERED: Hydrocortisone 2.5% Crm 30 GM Tube TOP PRN (22:35)
[2019-09-26] MEDS ORDERED: Nitroglycerin 0.4 MG Tab.SL SL PRN (22:35)
[2019-09-26] MEDS: Sodium Chloride 0.9% 100 ML IV SCH (22:40)
[2019-09-26] MEDS ORDERED: Cyanocobalamin (Vitamin B12) 1,000 MCG/ML SDV IM SCH (22:45)
[2019-09-26] MEDS ORDERED: Sodium Chloride 0.9% 100 ML ONE (23:25)
[2019-09-27] MEDS ORDERED: LEVOTHYROXINE 150 MCG PO SCH (07:00)
[2019-09-27 07:31] LABS: ANION GAP 22.6 mmol/L (5-15)
[2019-09-27] MEDS ORDERED: Non-Formulary Medication 1 Each (Metformin [Glucophage] 1,000 MG) PO SCH (08:00)
[2019-09-27] MEDS: glipiZIDE 5 MG Tab PO SCH ×2 (08:22→18:15)
[2019-09-27] MEDS: Levothyroxine 75 MCG Tab PO SCH (08:22)
[2019-09-27] MEDS ORDERED: Non-Formulary Medication 1 Each (L.Acidoph,Paracasei, B.Lactis [Probiotic] 1 CAP) PO SCH (09:00)
[2019-09-27] MEDS ORDERED: Non-Formulary Medication 1 Each (Pregabalin [Lyrica] 150 MG) PO SCH (09:00)
[2019-09-27] MEDS ORDERED: Non-Formulary Medication 1 Each (Losartan [Cozaar] 100 MG) PO SCH (09:00)
[2019-09-27] MEDS ORDERED: Non-Formulary Medication 1 Each (Cranberry Fruit Concentrate [Cranberry] 450 MG) PO SCH (09:00)
[2019-09-27] MEDS ORDERED: metroNIDAZOLE 500 MG Tab PO SCH (09:00)
[2019-09-27] MEDS: Isosorbide Mononitrate 30 MG Tab.ER PO SCH (10:05)
[2019-09-27] MEDS: Losartan 50 MG Tab PO SCH (10:06)
[2019-09-27] MEDS: Pregabalin 25 MG Cap PO SCH (10:06)
[2019-09-27] MEDS: B.Bifidum/B.Longum/L.Acidophilus/L.Rhamnosus (Probiotic) Cap PO SCH (10:07)
[2019-09-27] MEDS: Aspirin 81 MG Tab.EC PO SCH (10:07)
[2019-09-27] MEDS: Apixaban 5 MG Tab PO SCH ×2 (10:08→20:38)
[2019-09-27] MEDS: Furosemide 40 MG/4 ML VIAL IVPUSH SCH (10:08)
--- NOTE | 2019-09-27 10:20 | CR ---
[id number] RAD/RAD Chest PA or AP 1V EXAM: RAD Chest PA or AP 1V INDICATION: RESPIRATORY DISTRESS. COMPARISON: 08/31/2019. DISCUSSION: Cardiac mediastinal silhouette is enlarged but stable. Central pulmonary vessel congestion. Patchy airspace opacification bilaterally. Small left pleural effusion. IMPRESSION: Findings consistent with congestive heart failure exacerbation. Raza Bryant DO 09/27/19 1019 Thank you for allowing us to participate in the care of your patient.
[2019-09-27] MEDS ORDERED: Piperacillin/Tazobactam 3.375 GM in Sodium Chloride 0.9% 50 ML IV SCH ×2 (11:00→13:00)
--- NOTE | 2019-09-27 11:08 | PCM.PN ---
- General Info Date of Service: 09/27/19 Admission Dx/Problem (Free Text): Respiratory distress Neutrophilic leukocytosis A-fib with RVR CHF exacerbation - Review of Systems Systems Review Comment:: Silvana is seen today in inpatient rounds. She was admitted on 09/26/2019 through the ER from the [place] for respiratory distress, a-fib with RVR, neutrophilic leukocytosis without clear source if infection as well as CHF exacerbation. She was started on rocephin and levofloxacin after blood culture were obtained. She was initially requiring 8L of O2 to keep sats >90% and currently she is down to 3L with sats at 94%. Typically she only uses oxygen at night and PRN during the day. She was also noted to be in a-fib with RVR, HR in the 140's which did come down to <100 without any additional intervention. This AM she is alert and in bed, she is asking to get into the chair as she feels she breathes easier in the chair. She has a colonic mass and is scheduled for surgery on 10/16/2019, this had to be delayed as she was diagnosed with influenza B in early August of 2019. Currently she denies rectal bleeding and is having bowel movements. Her hemoglobin is stable. She states to me this morning, I feel fine, I sure wish I didn't have to be here ". Overall per nursing staff she is clinically improved. Of note, she was started on an insulin drip this morning for BG >500, she is currently at 12 units per hour and her most recent accucheck was 351, so this has come down. She has a very mild metabolic acidosis. She denies any pain, she states she didn't eat breakfast as her BG was so high and "I don't usually eat breakfast". She denies any chest pain. - Patient Data Vitals - Most Recent: Last Vital Signs Temp 97.4 F 09/27/19 06:58 Pulse 118 H 09/27/19 06:58 Resp 24 H 09/27/19 06:58 BP 120/70 09/27/19 10:06 Pulse Ox 96 09/27/19 06:58 Weight - Most Recent: 198 lb 2 oz I&O - Last 24 Hours: Intake & Output 09/26/19 09/27/19 09/27/19 22:59 06:59 14:59 Intake Total 0 Output Total 200 Balance -200 Lab Results Last 24 Hours: Laboratory Results - last 24 hr 09/26/19 09/26/19 09/26/19 Range/Units 09:20 09:20 09:20 WBC 28.71 H D (5.00-10.00) 10^3/uL RBC 4.08 (3.80-5.50) 10^6/uL Hgb 11.5 L D (12.0-16.0) g/dL Hct 36.2 L (37.0-47.0) % MCV 88.7 D (82.0-92.0) fL MCH 28.2 (27.0-31.0) pg MCHC 31.8 L (32.0-36.0) g/dL RDW 15.4 H (11.5-14.5) % Plt Count 327 (150-400) 10^3/uL MPV 10.7 H (7.4-10.4) fL Immature Gran % (Auto) 1.4 (0.0-5.0) % Neut % (Auto) 81.5 H (50.0-70.0) % Lymph % (Auto) 11.7 L (20.0-40.0) % Douglas % (Auto) 5.2 (2.0-8.0) % Eos % (Auto) 0.1 L (1.0-3.0) % Baso % (Auto) 0.1 (0.0-1.0) % Immature Gran # (Auto) 0.39 (0.00-0.50) 10^3/uL Neut # (Auto) 23.39 H (2.50-7.00) 10^3/uL Lymph # (Auto) 3.37 (1.00-4.00) 10^3/uL Douglas # (Auto) 1.49 H (0.10-0.80) 10^3/uL Eos # (Auto) 0.03 L (0.10-0.30) 10^3/uL Baso # (Auto) 0.04 (0.00-0.10) 10^3/uL ESR 30 H (0-20) mm/hr Sodium 134 L (136-145) mmol/L Potassium 5.5 H (3.3-5.3) mmol/L Chloride 97 L (98-115) mmol/L Carbon Dioxide 18.0 L (21.0-32.0) mmol/L Anion Gap 24.5 H (5-15) mmol/L BUN 31 H (6-25) mg/dL Creatinine 1.10 (0.51-1.17) mg/dL Est Cr Clr Drug Dosing 35.66 mL/min Estimated GFR (MDRD) 47 mL/min Glucose 473 H (75 - 99) mg/dL POC Glucose (74-106) mg/dl Lactic Acid (0.4-2.0) mmol/L Calcium 8.9 (8.7-10.3) mg/dL Troponin I 0.05 (0.00-0.070) ng/mL C-Reactive Protein 2.8 H (0.0-0.9) mg/dL B-Natriuretic Peptide 316 H (0-100) pg/mL Specimen Type Urine Color (YELLOW) Urine Appearance (CLEAR) Urine pH (5.0-9.0) Ur Specific Rosenberg (1.005-1.030) Urine Protein (NEGATIVE) mg/dL Urine Glucose (UA) (NEGATIVE) mg/dL Urine Ketones (NEGATIVE) mg/dL Urine Occult Blood (NEGATIVE) Urine Nitrite (NEGATIVE) Urine Bilirubin (NEGATIVE) Urine Urobilinogen (0.2-1.0) E.U./dL Ur Leukocyte Esterase (NEGATIVE) Urine RBC (0-5) /HPF Urine WBC (0-5) /HPF Ur Epithelial Cells /LPF Urine Bacteria (NONE TO FEW) /HPF 09/26/19 09/26/19 09/27/19 Range/Units 22:00 22:15 06:37 WBC (5.00-10.00) 10^3/uL RBC (3.80-5.50) 10^6/uL Hgb (12.0-16.0) g/dL Hct (37.0-47.0) % MCV (82.0-92.0) fL MCH (27.0-31.0) pg MCHC (32.0-36.0) g/dL RDW (11.5-14.5) % Plt Count (150-400) 10^3/uL MPV (7.4-10.4) fL Immature Gran % (Auto) (0.0-5.0) % Neut % (Auto) (50.0-70.0) % Lymph % (Auto) (20.0-40.0) % Douglas % (Auto) (2.0-8.0) % Eos % (Auto) (1.0-3.0) % Baso % (Auto) (0.0-1.0) % Immature Gran # (Auto) (0.00-0.50) 10^3/uL Neut # (Auto) (2.50-7.00) 10^3/uL Lymph # (Auto) (1.00-4.00) 10^3/uL Douglas # (Auto) (0.10-0.80) 10^3/uL Eos # (Auto) (0.10-0.30) 10^3/uL Baso # (Auto) (0.00-0.10) 10^3/uL ESR (0-20) mm/hr Sodium (136-145) mmol/L Potassium (3.3-5.3) mmol/L Chloride (98-115) mmol/L Carbon Dioxide (21.0-32.0) mmol/L Anion Gap (5-15) mmol/L BUN (6-25) mg/dL Creatinine (0.51-1.17) mg/dL Est Cr Clr Drug Dosing mL/min Estimated GFR (MDRD) mL/min Glucose (75 - 99) mg/dL POC Glucose > 500 H (74-106) mg/dl Lactic Acid 6.0 H (0.4-2.0) mmol/L Calcium (8.7-10.3) mg/dL Troponin I (0.00-0.070) ng/mL C-Reactive Protein (0.0-0.9) mg/dL B-Natriuretic Peptide (0-100) pg/mL Specimen Type Urincath Urine Color Light yellow (YELLOW) Urine Appearance Clear (CLEAR) Urine pH 6.0 (5.0-9.0) Ur Specific Rosenberg 1.020 (1.005-1.030) Urine Protein 30 H (NEGATIVE) mg/dL Urine Glucose (UA) 500 H (NEGATIVE) mg/dL Urine Ketones Negative (NEGATIVE) mg/dL Urine Occult Blood Negative (NEGATIVE) Urine Nitrite Negative (NEGATIVE) Urine Bilirubin Negative (NEGATIVE) Urine Urobilinogen 0.2 (0.2-1.0) E.U./dL Ur Leukocyte Esterase Negative (NEGATIVE) Urine RBC 0-5 (0-5) /HPF Urine WBC 10-20 H (0-5) /HPF Ur Epithelial Cells Few /LPF Urine Bacteria Occasional (NONE TO FEW) /HPF 09/27/19 09/27/19 09/27/19 Range/Units 06:49 06:49 08:27 WBC 17.29 H D (5.00-10.00) 10^3/uL RBC 3.58 L (3.80-5.50) 10^6/uL Hgb 10.3 L (12.0-16.0) g/dL Hct 32.2 L (37.0-47.0) % MCV 89.9 (82.0-92.0) fL MCH 28.8 (27.0-31.0) pg MCHC 32.0 (32.0-36.0) g/dL RDW 15.3 H (11.5-14.5) % Plt Count 307 (150-400) 10^3/uL MPV 11.1 H (7.4-10.4) fL Immature Gran % (Auto) 1.3 (0.0-5.0) % Neut % (Auto) 85.7 H (50.0-70.0) % Lymph % (Auto) 6.0 L (20.0-40.0) % Douglas % (Auto) 6.9 (2.0-8.0) % Eos % (Auto) 0.0 L (1.0-3.0) % Baso % (Auto) 0.1 (0.0-1.0) % Immature Gran # (Auto) 0.22 (0.00-0.50) 10^3/uL Neut # (Auto) 14.82 H (2.50-7.00) 10^3/uL Lymph # (Auto) 1.04 (1.00-4.00) 10^3/uL Douglas # (Auto) 1.20 H (0.10-0.80) 10^3/uL Eos # (Auto) 0.00 L (0.10-0.30) 10^3/uL Baso # (Auto) 0.01 (0.00-0.10) 10^3/uL ESR (0-20) mm/hr Sodium 134 L (136-145) mmol/L Potassium 5.7 H (3.3-5.3) mmol/L Chloride 97 L (98-115) mmol/L Carbon Dioxide 20.1 L (21.0-32.0) mmol/L Anion Gap 22.6 H (5-15) mmol/L BUN 39 H (6-25) mg/dL Creatinine 1.49 H (0.51-1.17) mg/dL Est Cr Clr Drug Dosing 26.33 mL/min Estimated GFR (MDRD) 33 mL/min Glucose 598 H (75 - 99) mg/dL POC Glucose > 500 H (74-106) mg/dl Lactic Acid (0.4-2.0) mmol/L Calcium 8.3 L (8.7-10.3) mg/dL Troponin I (0.00-0.070) ng/mL C-Reactive Protein (0.0-0.9) mg/dL B-Natriuretic Peptide (0-100) pg/mL Specimen Type Urine Color (YELLOW) Urine Appearance (CLEAR) Urine pH (5.0-9.0) Ur Specific Rosenberg (1.005-1.030) Urine Protein (NEGATIVE) mg/dL Urine Glucose (UA) (NEGATIVE) mg/dL Urine Ketones (NEGATIVE) mg/dL Urine Occult Blood (NEGATIVE) Urine Nitrite (NEGATIVE) Urine Bilirubin (NEGATIVE) Urine Urobilinogen (0.2-1.0) E.U./dL Ur Leukocyte Esterase (NEGATIVE) Urine RBC (0-5) /HPF Urine WBC (0-5) /HPF Ur Epithelial Cells /LPF Urine Bacteria (NONE TO FEW) /HPF 09/27/19 09/27/19 Range/Units 09:26 10:39 WBC (5.00-10.00) 10^3/uL RBC (3.80-5.50) 10^6/uL Hgb (12.0-16.0) g/dL Hct (37.0-47.0) % MCV (82.0-92.0) fL MCH (27.0-31.0) pg MCHC (32.0-36.0) g/dL RDW (11.5-14.5) % Plt Count (150-400) 10^3/uL MPV (7.4-10.4) fL Immature Gran % (Auto) (0.0-5.0) % Neut % (Auto) (50.0-70.0) % Lymph % (Auto) (20.0-40.0) % Douglas % (Auto) (2.0-8.0) % Eos % (Auto) (1.0-3.0) % Baso % (Auto) (0.0-1.0) % Immature Gran # (Auto) (0.00-0.50) 10^3/uL Neut # (Auto) (2.50-7.00) 10^3/uL Lymph # (Auto) (1.00-4.00) 10^3/uL Douglas # (Auto) (0.10-0.80) 10^3/uL Eos # (Auto) (0.10-0.30) 10^3/uL Baso # (Auto) (0.00-0.10) 10^3/uL ESR (0-20) mm/hr Sodium (136-145) mmol/L Potassium (3.3-5.3) mmol/L Chloride (98-115) mmol/L Carbon Dioxide (21.0-32.0) mmol/L Anion Gap (5-15) mmol/L BUN (6-25) mg/dL Creatinine (0.51-1.17) mg/dL Est Cr Clr Drug Dosing mL/min Estimated GFR (MDRD) mL/min Glucose (75 - 99) mg/dL POC Glucose 447 H 351 H (74-106) mg/dl Lactic Acid (0.4-2.0) mmol/L Calcium (8.7-10.3) mg/dL Troponin I (0.00-0.070) ng/mL C-Reactive Protein (0.0-0.9) mg/dL B-Natriuretic Peptide (0-100) pg/mL Specimen Type Urine Color (YELLOW) Urine Appearance (CLEAR) Urine pH (5.0-9.0) Ur Specific Rosenberg (1.005-1.030) Urine Protein (NEGATIVE) mg/dL Urine Glucose (UA) (NEGATIVE) mg/dL Urine Ketones (NEGATIVE) mg/dL Urine Occult Blood (NEGATIVE) Urine Nitrite (NEGATIVE) Urine Bilirubin (NEGATIVE) Urine Urobilinogen (0.2-1.0) E.U./dL Ur Leukocyte Esterase (NEGATIVE) Urine RBC (0-5) /HPF Urine WBC (0-5) /HPF Ur Epithelial Cells /LPF Urine Bacteria (NONE TO FEW) /HPF Med Orders - Current: Current Medications Albuterol/Ipratropium (Duoneb 3.0-0.5 Mg/3 Ml) 3 ml NEB Q4H PRN PRN Reason: Shortness Of Breath/wheezing Apixaban (Eliquis) 5 mg PO BID [facility] Last Admin: 09/27/19 10:08 Dose: 5 mg Aspirin (Halfprin) 81 mg PO DAILY [facility] Last Admin: 09/27/19 10:07 Dose: 81 mg Cholecalciferol (Vitamin D3) mcg PO DAILY@1200 [facility] Clopidogrel Bisulfate (Plavix) 75 mg PO DAILY@1200 [facility] Cyanocobalamin (Vitamin B12) 1,000 mcg IM Q21D [facility] Last Admin: 09/27/19 00:23 Dose: Not Given Furosemide (Lasix) 40 mg IVPUSH DAILY [facility] Last Admin: 09/27/19 10:08 Dose: 40 mg Glipizide (Glucotrol) 20 mg PO BIDM [facility] Last Admin: 09/27/19 08:22 Dose: 20 mg Hydrocortisone (Proctozone-Hc 2.5% Crm) 0 gm TOP BID PRN PRN Reason: Hemorrhoids Sodium Chloride (Normal Saline) 100 mls @ 100 mls/hr IV DAILY [facility] Last Admin: 09/26/19 22:40 Dose: 100 mls/hr Insulin Human Regular 100 unit (/ Sodium Chloride) 100 mls @ 8.98 mls/hr IV TITRATE [facility]; Protocol Piperacillin Sod/Tazobactam (Sod 3.375 gm/ Sodium Chloride) 50 mls @ 100 mls/ hr IV Q6H [facility] Isosorbide Mononitrate (Imdur) 60 mg PO DAILY [facility] Last Admin: 09/27/19 10:05 Dose: 60 mg Lactobacillus Acidophilus/Rhamnosus (Multi-Karla Plus) 1 cap PO DAILY [facility] Last Admin: 09/27/19 10:07 Dose: 1 cap Levothyroxine Sodium (Levothyroxine) 150 mcg PO ACBREAKFAST [facility] Last Admin: 09/27/19 08:22 Dose: 150 mcg Losartan Potassium (Cozaar) 100 mg PO DAILY [facility] Last Admin: 09/27/19 10:06 Dose: 100 mg Metformin HCl (Glucophage) 1,000 mg PO BIDM [facility] Metoprolol Succinate (Toprol Xl) 100 mg PO BEDTIME [facility] Multivitamins/Minerals (Centrum) 1 tab PO DAILY@1200 Y[facility]ANY Nitroglycerin (Nitrostat) 0.4 mg SL ASDIRECTED PRN PRN Reason: Chest Pain Non-Formulary Medication (Cranberry Fruit Concentrate [Cranberry]) 450 mg PO BID [facility] Non-Formulary Medication (Lidocaine 4%) 1 patch TOP DAILY PRN PRN Reason: Pain Non-Formulary Medication (Propylene Glycol/Peg 400 [Systane Ultra 0.4-0.3% Eye Drp]) 1 drop EYEBOTH BID PRN PRN Reason: Dry Eyes Ondansetron HCl (Zofran) 4 mg IV Q6H PRN PRN Reason: Nausea/Vomiting Pregabalin (Lyrica) 100 mg PO BEDTIME [facility] Pregabalin (Lyrica) 150 mg PO DAILY [facility] Last Admin: 09/27/19 10:06 Dose: 150 mg Ropinirole HCl (Requip) 0.5 mg PO BEDTIME [facility] Sodium Chloride (Saline Flush) 10 ml FLUSH Q8HR PRN PRN Reason: keep vein open Vancomycin HCl (Pharmacy To Dose - Vancomycin) 1 dose .XX ASDIRECTED [facility] Discontinued Medications Acetaminophen (Tylenol) 650 mg RECTAL NOW ONE Stop: 09/26/19 21:32 Last Admin: 09/26/19 23:47 Dose: 650 mg Ceftriaxone Sodium (Rocephin) 2 gm IVPUSH ONETIME [facility] Last Admin: 09/26/19 23:35 Dose: 2 gm Levofloxacin/Dextrose 500 mg/ (Premix) 100 mls @ 100 mls/hr IV Q24H [facility] Last Admin: 09/26/19 23:44 Dose: 100 mls/hr Sodium Chloride (Normal Saline) Confirm Administered Dose 100 mls @ as directed .ROUTE .STK-MED ONE Stop: 09/26/19 23:26 Last Admin: 09/27/19 00:16 Dose: Not Given Metronidazole (Flagyl) 500 mg PO BID [facility] Non-Formulary Medication (L.Acidoph,Paracasei, B.Lactis [Probiotic]) 1 cap PO DAILY [facility] Non-Formulary Medication (Levothyroxine [Levothyroxine]) 150 mcg PO ACBRK [facility] Last Admin: 09/27/19 08:40 Dose: Not Given Non-Formulary Medication (Losartan [Cozaar]) 100 mg PO DAILY [facility] Non-Formulary Medication (Metformin [Glucophage]) 1,000 mg PO BIDM [facility] Last Admin: 09/27/19 09:30 Dose: Not Given Non-Formulary Medication (Pregabalin [Lyrica]) 150 mg PO DAILY [facility] Piperacillin Sod/Tazobactam Sod (Zosyn) 3.375 gm IV Q6H YOVANY - Exam Quality Assessment: Supplemental Oxygen General: Alert, Oriented, Cooperative, No Acute Distress Lungs: Crackles (Bilateral lower lung creackles) Cardiovascular: Regular Rate, No Murmurs, Irregular Rhythm GI/Abdominal Exam: Normal Bowel Sounds, Soft, Non-Tender Extremities: Other (No pedal edema, compression stockings are in place.) Skin: Warm, Dry, Intact Psy/Mental Status: Alert, Normal Affect, Normal Mood Sepsis Event Note - Evaluation Sepsis Screening Result: Sepsis Risk - Focused Exam Vital Signs: Vital Signs Temp Pulse Resp BP BP BP Pulse Ox 09/27/19 10:06 120/70 09/27/19 10:05 120/70 09/27/19 06:58 97.4 F 118 H 24 H 116/67 96 09/27/19 03:00 09/27/19 02:55 96.4 F 112 H 24 H 117/72 95 09/27/19 01:30 09/27/19 00:55 09/27/19 00:45 Pulse Ox Pulse Ox 09/27/19 10:06 09/27/19 10:05 09/27/19 06:58 09/27/19 03:00 94 L 09/27/19 02:55 09/27/19 01:30 94 L 09/27/19 00:55 94 L 09/27/19 00:45 98 Date Exam was Performed: 09/27/19 Time Exam was Performed: 11:03 - Problem List Review Problem List Initiated/Reviewed/Updated: Yes - My Orders Last 24 Hours: My Active Orders 09/27/19 10:38 LACTIC ACID [CHEM] Routine 09/27/19 11:00 Pharmacy to Dose - Vancomycin 1 dose .XX ASDIRECTED Piperacillin/Tazobactam [Zosyn] 3.375 gm Sodium Chloride 0.9% [Normal Saline] 50 ml IV Q6H 09/27/19 16:00 POTASSIUM,K [CHEM] Timed 09/28/19 05:11 CBC WITH AUTO DIFF [HEME] AM COMPREHENSIVE METABOLIC PN,CMP [CHEM] AM LACTIC ACID [CHEM] AM 09/29/19 05:11 CBC WITH AUTO DIFF [HEME] AM COMPREHENSIVE METABOLIC PN,CMP [CHEM] AM LACTIC ACID [CHEM] AM 09/30/19 05:11 CBC WITH AUTO DIFF [HEME] AM COMPREHENSIVE METABOLIC PN,CMP [CHEM] AM LACTIC ACID [CHEM] AM 10/01/19 05:11 CBC WITH AUTO DIFF [HEME] AM COMPREHENSIVE METABOLIC PN,CMP [CHEM] AM LACTIC ACID [CHEM] AM 10/02/19 05:11 CBC WITH AUTO DIFF [HEME] AM COMPREHENSIVE METABOLIC PN,CMP [CHEM] AM LACTIC ACID [CHEM] AM - Assessment Assessment:: Admission Diagnoses: Respiratory distress CHF exacerbation, chronic diastolic dysfunction A-fib with RVR, on telemetry Neutrophilic leukocytosis Acute kidney injury Hyperkalemia Diabetes mellitus with hyperglycemia, currently on insulin drip Lactic acidosis Secondary diagnoses: CAD with hyperlipidemia, 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 Have been able to wean down O2 from 8L via NC to 3L. CHF exacerbation, chronic diastolic dysfunction, furosemide 40 mg IV daily. James in place to monitor I&O. Daily weights. Weight was up nearly 6 pounds from baseline per [facility]. A-fib with RVR, on telemetry, currently rate <100. Continue home meds and Eliquis. Neutrophilic leukocytosis, blood culture obtained. No obvious source of infection. WBC down from 28.71 to 17.29, still with 85% neutrophils. Will change antibiotics to Vancomycin pharm to dose and Zosyn 3.376 mg q 6 hours. Procalcitonin pending, lactate from this AM pending, was 6.0 yesterday. Acute kidney injury, likely secondary to increased diuretic use as this has occurred in the past when lasix has had to be increased. Daily BMP. Hyperkalemia, will repeat at 1600 today. Diabetes mellitus with hyperglycemia, currently on insulin drip, hourly accuchecks. When BG <200, decrease drip to 9 units per hour. Lactic acidosis, as above, repeating lactate at 1600 today. DVT prophylaxis: Eliquis for A-fib Stress ulcer prophylaxis: Already on PPI Code Status: DNR FEN: No IVF's due to CHF exacerbation, labs as ordered, diabetic diet, heart healthy diet. 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 Depression. Continue home meds. Dry eyes. Continue home meds. HTN. Continue home meds. Hypothyroidism. Continue home meds. Mass of colon. Hopefully she can proceed with surgery on 10/16 as scheduled. Obesity. OA. Cpntinue home meds. Perhiperhal neuropathy. Continue home meds. Pernicious anemia. Outpatient V12 injections. Vit D deficiency. Continue home meds.
[2019-09-27] MEDS: Clopidogrel 75 MG Tab PO SCH (12:30)
[2019-09-27] MEDS: Multivitamins with Minerals/Iron/Folic Acid/Lycopene Tab PO SCH (12:30)
[2019-09-27] MEDS: Sodium Chloride 0.9% 100 ML IV SCH ×2 (12:31→22:40)
[2019-09-27] MEDS ORDERED: Polyvinyl Alcohol 1.4% Ophth Soln 15 ML Bottle EYEBOTH PRN (12:41)
[2019-09-27] MEDS ORDERED: Acetaminophen 325 MG Tab PO PRN (13:10)
[2019-09-27] MEDS: Cholecalciferol (Vitamin D3) 25 MCG Tab PO SCH (13:23)
[2019-09-27] MEDS: Piperacillin/Tazobactam 3.375 GM in Sodium Chloride 0.9% 50 ML IV SCH ×2 (15:01→22:40)
[2019-09-27] MEDS: metFORMIN 500 MG Tab PO SCH (18:16)
[2019-09-27] MEDS: Pregabalin 100 MG Cap PO SCH (20:38)
[2019-09-27] MEDS: rOPINIRole 0.25 MG Tab PO SCH (20:38)
[2019-09-27] MEDS: Metoprolol Succinate 50 MG Tab.ER PO SCH (21:31)
[2019-09-27] MEDS: Insulin Aspart 100 Units/ML 3 ML Pen SUBCUT SCH (22:36)
[2019-09-27] MEDS: Sodium Chloride 0.9% 10 ML Syringe FLUSH PRN ×2 (22:40→22:45)
[2019-09-28] MEDS: Sodium Chloride 0.9% 10 ML Syringe FLUSH PRN ×3 (03:42→09:33)
[2019-09-28] MEDS: Piperacillin/Tazobactam 3.375 GM in Sodium Chloride 0.9% 50 ML IV SCH (03:48)
[2019-09-28] MEDS: Levothyroxine 75 MCG Tab PO SCH (06:35)
[2019-09-28 07:55] LABS: ANION GAP 14.7 mmol/L (5-15)
[2019-09-28] MEDS ORDERED: Piperacillin/Tazobactam/Dext 3.375 GM in Premix Bag 1 BAG IV SCH (08:12)
[2019-09-28] MEDS: Losartan 50 MG Tab PO SCH (08:19)
[2019-09-28] MEDS: Aspirin 81 MG Tab.EC PO SCH (08:19)
[2019-09-28] MEDS: metFORMIN 500 MG Tab PO SCH ×2 (08:19→18:05)
[2019-09-28] MEDS: B.Bifidum/B.Longum/L.Acidophilus/L.Rhamnosus (Probiotic) Cap PO SCH (08:19)
[2019-09-28] MEDS: Isosorbide Mononitrate 30 MG Tab.ER PO SCH (08:19)
[2019-09-28] MEDS: Pregabalin 25 MG Cap PO SCH (08:19)
[2019-09-28] MEDS: glipiZIDE 5 MG Tab PO SCH ×2 (08:19→18:05)
[2019-09-28] MEDS: Apixaban 5 MG Tab PO SCH ×2 (08:19→21:43)
[2019-09-28] MEDS: Insulin Aspart 100 Units/ML 3 ML Pen SUBCUT SCH ×4 (08:20→21:49)
--- NOTE | 2019-09-28 09:28 | PCM.PN ---
- General Info Date of Service: 09/28/19 Admission Dx/Problem (Free Text): Respiratory distress Neutrophilic leukocytosis A-fib with RVR CHF exacerbation - Review of Systems Systems Review Comment:: Silvana is seen today on inpatient rounds. She was admitted on 09/26/2019 through the ER with respiratory distress secondary to CHF exacerbation. She has been on lasix 40 mg IV daily (outpatient dose if 20 mg PO daily) and her weight is stable although her I&O in past 24 hours if net gain of 370 mL's. She is still on O2 at 2L via NC to keep sats >90%. She typically does not wear O2 at the detention although occasionally at [facility] she does require it. She does not use CPAP. She states today "I feel pretty good". She denies any pain. She reports being tired today stating she slept well last night but she was woken up early today. Her insulin drip was discontinued yesterday and she was placed on a medium dose sliding scale protocol and has used a total of 8 units. BG"s are in the mid 200 's. She does not use insulin as an outpatient. - Patient Data Vitals - Most Recent: Last Vital Signs Temp 97.3 F 09/28/19 06:58 Pulse 93 09/28/19 06:58 Resp 20 09/28/19 06:58 BP 124/70 09/28/19 08:19 Pulse Ox 95 09/28/19 06:58 Weight - Most Recent: 198 lb I&O - Last 24 Hours: Intake & Output 09/27/19 09/28/19 09/28/19 22:59 06:59 14:59 Intake Total 894 176 Output Total 400 200 Balance 494 -24 Lab Results Last 24 Hours: Laboratory Results - last 24 hr 09/27/19 09/27/19 09/27/19 Range/Units 09:26 10:39 10:48 Sodium (136-145) mmol/L Potassium (3.3-5.3) mmol/L Chloride (98-115) mmol/L Carbon Dioxide (21.0-32.0) mmol/L Anion Gap (5-15) mmol/L BUN (6-25) mg/dL Creatinine (0.51-1.17) mg/dL Est Cr Clr Drug Dosing mL/min Estimated GFR (MDRD) mL/min Glucose (75 - 99) mg/dL POC Glucose 447 H 351 H (74-106) mg/dl Lactic Acid 4.5 H (0.4-2.0) mmol/L Calcium (8.7-10.3) mg/dL Total Bilirubin (0.2-1.0) mg/dL AST (15-37) U/L ALT (12-78) U/L Alkaline Phosphatase (46-116) IU/L Total Protein (6.4-8.2) g/dL Albumin (3.00-4.80) g/dL 09/27/19 09/27/19 09/27/19 Range/Units 11:28 12:38 13:33 Sodium (136-145) mmol/L Potassium (3.3-5.3) mmol/L Chloride (98-115) mmol/L Carbon Dioxide (21.0-32.0) mmol/L Anion Gap (5-15) mmol/L BUN (6-25) mg/dL Creatinine (0.51-1.17) mg/dL Est Cr Clr Drug Dosing mL/min Estimated GFR (MDRD) mL/min Glucose (75 - 99) mg/dL POC Glucose 255 H 147 H 122 H (74-106) mg/dl Lactic Acid (0.4-2.0) mmol/L Calcium (8.7-10.3) mg/dL Total Bilirubin (0.2-1.0) mg/dL AST (15-37) U/L ALT (12-78) U/L Alkaline Phosphatase (46-116) IU/L Total Protein (6.4-8.2) g/dL Albumin (3.00-4.80) g/dL 09/27/19 09/27/19 09/27/19 Range/Units 14:30 15:38 15:55 Sodium (136-145) mmol/L Potassium 5.0 (3.3-5.3) mmol/L Chloride (98-115) mmol/L Carbon Dioxide (21.0-32.0) mmol/L Anion Gap (5-15) mmol/L BUN (6-25) mg/dL Creatinine (0.51-1.17) mg/dL Est Cr Clr Drug Dosing mL/min Estimated GFR (MDRD) mL/min Glucose (75 - 99) mg/dL POC Glucose 65 L 117 H (74-106) mg/dl Lactic Acid (0.4-2.0) mmol/L Calcium (8.7-10.3) mg/dL Total Bilirubin (0.2-1.0) mg/dL AST (15-37) U/L ALT (12-78) U/L Alkaline Phosphatase (46-116) IU/L Total Protein (6.4-8.2) g/dL Albumin (3.00-4.80) g/dL 09/27/19 09/27/19 09/27/19 Range/Units 16:37 17:50 18:37 Sodium (136-145) mmol/L Potassium (3.3-5.3) mmol/L Chloride (98-115) mmol/L Carbon Dioxide (21.0-32.0) mmol/L Anion Gap (5-15) mmol/L BUN (6-25) mg/dL Creatinine (0.51-1.17) mg/dL Est Cr Clr Drug Dosing mL/min Estimated GFR (MDRD) mL/min Glucose (75 - 99) mg/dL POC Glucose 138 H 151 H 182 H (74-106) mg/dl Lactic Acid (0.4-2.0) mmol/L Calcium (8.7-10.3) mg/dL Total Bilirubin (0.2-1.0) mg/dL AST (15-37) U/L ALT (12-78) U/L Alkaline Phosphatase (46-116) IU/L Total Protein (6.4-8.2) g/dL Albumin (3.00-4.80) g/dL 09/27/19 09/27/19 09/28/19 Range/Units 20:08 21:23 03:07 Sodium (136-145) mmol/L Potassium (3.3-5.3) mmol/L Chloride (98-115) mmol/L Carbon Dioxide (21.0-32.0) mmol/L Anion Gap (5-15) mmol/L BUN (6-25) mg/dL Creatinine (0.51-1.17) mg/dL Est Cr Clr Drug Dosing mL/min Estimated GFR (MDRD) mL/min Glucose (75 - 99) mg/dL POC Glucose 227 H 238 H 171 H (74-106) mg/dl Lactic Acid (0.4-2.0) mmol/L Calcium (8.7-10.3) mg/dL Total Bilirubin (0.2-1.0) mg/dL AST (15-37) U/L ALT (12-78) U/L Alkaline Phosphatase (46-116) IU/L Total Protein (6.4-8.2) g/dL Albumin (3.00-4.80) g/dL 09/28/19 09/28/19 09/28/19 Range/Units 07:25 07:25 07:51 Sodium 136 (136-145) mmol/L Potassium 4.9 (3.3-5.3) mmol/L Chloride 100 (98-115) mmol/L Carbon Dioxide 26.2 (21.0-32.0) mmol/L Anion Gap 14.7 (5-15) mmol/L BUN 40 H (6-25) mg/dL Creatinine 1.67 H (0.51-1.17) mg/dL Est Cr Clr Drug Dosing 23.49 mL/min Estimated GFR (MDRD) 29 mL/min Glucose 202 H (75 - 99) mg/dL POC Glucose 208 H (74-106) mg/dl Lactic Acid 1.6 (0.4-2.0) mmol/L Calcium 8.3 L (8.7-10.3) mg/dL Total Bilirubin 0.6 (0.2-1.0) mg/dL AST 73 H (15-37) U/L ALT 38 (12-78) U/L Alkaline Phosphatase 70 (46-116) IU/L Total Protein 6.3 L (6.4-8.2) g/dL Albumin 2.62 L (3.00-4.80) g/dL Samson Results Last 24 Hours: Microbiology 09/26/19 22:15 Aerobic Blood Culture - Preliminary Blood - Venous - Lab Draw NO GROWTH AFTER 1 DAY Anaerobic Blood Culture - Preliminary NO GROWTH AFTER 1 DAY 09/26/19 22:00 Aerobic Blood Culture - Preliminary Blood - Venous NO GROWTH AFTER 1 DAY Anaerobic Blood Culture - Preliminary NO GROWTH AFTER 1 DAY Med Orders - Current: Current Medications Acetaminophen (Tylenol) 650 mg PO Q6H PRN PRN Reason: Pain/Fever Albuterol/Ipratropium (Duoneb 3.0-0.5 Mg/3 Ml) 3 ml NEB Q4H PRN PRN Reason: Shortness Of Breath/wheezing Apixaban (Eliquis) 5 mg PO BID [facility] Last Admin: 09/28/19 08:19 Dose: 5 mg Artificial Tears (Liquitears 1.4% Ophth Soln) 0 ml EYEBOTH BID PRN PRN Reason: Dry Eyes Aspirin (Halfprin) 81 mg PO DAILY [facility] Last Admin: 09/28/19 08:19 Dose: 81 mg Cholecalciferol (Vitamin D3) 50 mcg PO DAILY@1200 [facility] Last Admin: 09/27/19 13:23 Dose: 50 mcg Clopidogrel Bisulfate (Plavix) 75 mg PO DAILY@1200 [facility] Last Admin: 09/27/19 12:30 Dose: 75 mg Cyanocobalamin (Vitamin B12) 1,000 mcg IM Q21D [facility] Furosemide (Lasix) 40 mg IVPUSH DAILY [facility] Last Admin: 09/27/19 10:08 Dose: 40 mg Glipizide (Glucotrol) 20 mg PO BIDM [facility] Last Admin: 09/28/19 08:19 Dose: 20 mg Hydrocortisone (Proctozone-Hc 2.5% Crm) 0 gm TOP BID PRN PRN Reason: Hemorrhoids Sodium Chloride (Normal Saline) 100 mls @ 100 mls/hr IV DAILY [facility] Last Admin: 09/27/19 22:40 Dose: 100 mls/hr Vancomycin HCl 1 gm/ Sodium (Chloride) 250 mls @ 166.667 mls/hr IV Q24H [facility] Last Admin: 09/27/19 12:31 Dose: 166.667 mls/hr Piperacillin/Tazobactam/ (Dextrose 3.375 gm/ Premix) 50 mls @ 100 mls/hr IV Q6H [facility] Insulin Aspart (Novolog) 0 unit SUBCUT WITHMEALSANDBED [facility]; Protocol Last Admin: 09/28/19 08:20 Dose: 4 units Isosorbide Mononitrate (Imdur) 60 mg PO DAILY [facility] Last Admin: 09/28/19 08:19 Dose: 60 mg Lactobacillus Acidophilus/Rhamnosus (Multi-Karla Plus) 1 cap PO DAILY [facility] Last Admin: 09/28/19 08:19 Dose: 1 cap Levothyroxine Sodium (Levothyroxine) 150 mcg PO ACBREAKFAST [facility] Last Admin: 09/28/19 06:35 Dose: 150 mcg Losartan Potassium (Cozaar) 100 mg PO DAILY [facility] Last Admin: 09/28/19 08:19 Dose: 100 mg Metformin HCl (Glucophage) 1,000 mg PO BIDM [facility] Last Admin: 09/28/19 08:19 Dose: 1,000 mg Metoprolol Succinate (Toprol Xl) 100 mg PO BEDTIME [facility] Last Admin: 09/27/19 21:31 Dose: Not Given Multivitamins/Minerals (Centrum) 1 tab PO DAILY@1200 [facility] Last Admin: 09/27/19 12:30 Dose: 1 tab Nitroglycerin (Nitrostat) 0.4 mg SL ASDIRECTED PRN PRN Reason: Chest Pain Ondansetron HCl (Zofran) 4 mg IV Q6H PRN PRN Reason: Nausea/Vomiting Pregabalin (Lyrica) 100 mg PO BEDTIME [facility] Last Admin: 09/27/19 20:38 Dose: 100 mg Pregabalin (Lyrica) 150 mg PO DAILY [facility] Last Admin: 09/28/19 08:19 Dose: 150 mg Ropinirole HCl (Requip) 0.5 mg PO BEDTIME [facility] Last Admin: 09/27/19 20:38 Dose: 0.5 mg Sodium Chloride (Saline Flush) 10 ml FLUSH Q8HR PRN PRN Reason: keep vein open Last Admin: 09/28/19 04:30 Dose: 10 ml Vancomycin HCl (Pharmacy To Dose - Vancomycin) 1 dose .XX ASDIRECTED [facility] Discontinued Medications Acetaminophen (Tylenol) 650 mg RECTAL NOW ONE Stop: 09/26/19 21:32 Last Admin: 09/26/19 23:47 Dose: 650 mg Ceftriaxone Sodium (Rocephin) 2 gm IVPUSH ONETIME [facility] Last Admin: 09/26/19 23:35 Dose: 2 gm Cyanocobalamin (Vitamin B12) 1,000 mcg IM Q21D [facility] Last Admin: 09/27/19 00:23 Dose: Not Given Levofloxacin/Dextrose 500 mg/ (Premix) 100 mls @ 100 mls/hr IV Q24H [facility] Last Admin: 09/26/19 23:44 Dose: 100 mls/hr Sodium Chloride (Normal Saline) Confirm Administered Dose 100 mls @ as directed .ROUTE .STK-MED ONE Stop: 09/26/19 23:26 Last Admin: 09/27/19 00:16 Dose: Not Given Insulin Human Regular 100 unit (/ Sodium Chloride) 100 mls @ 8.98 mls/hr IV TITRATE [facility]; Protocol Last Admin: 09/27/19 07:35 Dose: 0.1 units/kg/hr, 8.98 mls/hr Piperacillin Sod/Tazobactam (Sod 3.375 gm/ Sodium Chloride) 50 mls @ 100 mls/ hr IV Q6H [facility] Last Admin: 09/27/19 12:52 Dose: Not Given Piperacillin Sod/Tazobactam (Sod 3.375 gm/ Sodium Chloride) 50 mls @ 100 mls/ hr IV Q6H [facility] Last Admin: 09/27/19 13:14 Dose: Not Given Piperacillin Sod/Tazobactam (Sod 3.375 gm/ Sodium Chloride) 50 mls @ 100 mls/ hr IV Q6H [facility] Last Admin: 09/28/19 03:48 Dose: 100 mls/hr Piperacillin/Tazobactam/ (Dextrose 3.375 gm/ Premix) 50 mls @ 100 mls/hr IV Q6H [facility] Last Admin: 09/28/19 08:26 Dose: Not Given Metronidazole (Flagyl) 500 mg PO BID [facility] Non-Formulary Medication (Cranberry Fruit Concentrate [Cranberry]) 450 mg PO BID [facility] Non-Formulary Medication (L.Acidoph,Paracasei, B.Lactis [Probiotic]) 1 cap PO DAILY [facility] Non-Formulary Medication (Levothyroxine [Levothyroxine]) 150 mcg PO ACBRK [facility] Last Admin: 09/27/19 08:40 Dose: Not Given Non-Formulary Medication (Lidocaine 4%) 1 patch TOP DAILY PRN PRN Reason: Pain Non-Formulary Medication (Losartan [Cozaar]) 100 mg PO DAILY [facility] Non-Formulary Medication (Metformin [Glucophage]) 1,000 mg PO BIDM [facility] Last Admin: 09/27/19 09:30 Dose: Not Given Non-Formulary Medication (Pregabalin [Lyrica]) 150 mg PO DAILY [facility] Non-Formulary Medication (Propylene Glycol/Peg 400 [Systane Ultra 0.4-0.3% Eye Drp]) 1 drop EYEBOTH BID PRN PRN Reason: Dry Eyes Piperacillin Sod/Tazobactam Sod (Zosyn) 3.375 gm IV Q6H [facility] - Exam Quality Assessment: Supplemental Oxygen General: Alert, Oriented, Cooperative, No Acute Distress Lungs: Crackles (Bibasilar crackles, unchanged from yesterday.) Cardiovascular: No Murmurs, Irregular Rhythm GI/Abdominal Exam: Normal Bowel Sounds, Soft, Non-Tender Extremities: No Pedal Edema Sepsis Event Note - Evaluation Sepsis Screening Result: No Definite Risk - Focused Exam Vital Signs: Vital Signs Temp Pulse Resp BP BP BP Pulse Ox 09/28/19 08:19 124/70 09/28/19 06:58 97.3 F 93 20 108/55 L 95 09/28/19 06:45 09/28/19 03:00 97.0 F 89 22 H 120/62 97 09/27/19 23:00 97.5 F 88 20 98/56 L 98 Pulse Ox 09/28/19 08:19 09/28/19 06:58 09/28/19 06:45 94 L 09/28/19 03:00 97 09/27/19 23:00 Date Exam was Performed: 09/28/19 Time Exam was Performed: 09:33 - Problem List Review Problem List Initiated/Reviewed/Updated: Yes - My Orders Last 24 Hours: My Active Orders 09/27/19 11:00 Pharmacy to Dose - Vancomycin 1 dose .XX ASDIRECTED 09/27/19 12:00 Vancomycin 1 gm Sodium Chloride 0.9% [Normal Saline] 250 ml IV Q24H 09/27/19 13:10 Acetaminophen [Tylenol] 650 mg PO Q6H PRN 09/27/19 21:40 Insulin Aspart [NovoLOG] See Protocol SUBCUT WITHMEALSANDBED 09/28/19 07:25 CBC WITH AUTO DIFF [HEME] AM 09/28/19 09:00 Piperacillin/Tazobactam/Dext [Zosyn in Dextrose Iso-Osmotic 3.375 GM] 3.375 gm Premix Bag 1 bag IV Q6H 09/29/19 05:11 CBC WITH AUTO DIFF [HEME] AM COMPREHENSIVE METABOLIC PN,CMP [CHEM] AM LACTIC ACID [CHEM] AM 09/30/19 05:11 CBC WITH AUTO DIFF [HEME] AM COMPREHENSIVE METABOLIC PN,CMP [CHEM] AM LACTIC ACID [CHEM] AM 10/01/19 05:11 CBC WITH AUTO DIFF [HEME] AM COMPREHENSIVE METABOLIC PN,CMP [CHEM] AM LACTIC ACID [CHEM] AM 10/02/19 05:11 CBC WITH AUTO DIFF [HEME] AM COMPREHENSIVE METABOLIC PN,CMP [CHEM] AM LACTIC ACID [CHEM] AM - Assessment Assessment:: Admission Diagnoses: Respiratory distress CHF exacerbation, chronic diastolic dysfunction A-fib with RVR, on telemetry Neutrophilic leukocytosis Acute kidney injury Hyperkalemia Diabetes mellitus with hyperglycemia, currently on sliding scale insulin TID AC and HS. 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 Have been able to wean down O2 from 8L via NC to 3L. CHF exacerbation, chronic diastolic dysfunction, furosemide 40 mg IV daily. James in place to monitor I&O. Daily weights. Weight was up nearly 6 pounds from baseline per [facility]. A-fib with RVR, on telemetry, currently rate <100. Continue home meds and Eliquis. Will discontinue telemetry today as her HR is consistently <100. Neutrophilic leukocytosis, blood culture obtained. No obvious source of infection. WBC down from 17.29 to 11.41, 69% neutrophils. Continue vancomycin and zosyn for empiric treatment. Procalcitonin pending, lactate from this AM is 1.6, down from a high of 6. Acute kidney injury, likely secondary to increased diuretic use as this has occurred in the past when lasix has had to be increased. Daily BMP. Hyperkalemia, resolved. Diabetes mellitus with hyperglycemia, insulin drip stopped 2/2 and currently on SSI with home meds. Lactic acidosis, resolved. CHF exacerbation, chronic diastolic heart failure. As weight is stable and she is net up 370 mL's will continue lasix 40 mg IV daily and add 20 mg IV q PM. Daily weights. DVT prophylaxis: Eliquis for A-fib Stress ulcer prophylaxis: Already on PPI Code Status: DNR FEN: No IVF's due to CHF exacerbation, labs as ordered, diabetic diet, heart healthy diet. 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 Depression. Continue home meds. Dry eyes. Continue home meds. HTN. Continue home meds. Hypothyroidism. Continue home meds. Mass of colon. Hopefully she can proceed with surgery on 10/16 as scheduled. Obesity. OA. Cpntinue home meds. Perhiperhal neuropathy. Continue home meds. Pernicious anemia. Outpatient B12 injections. Vit D deficiency. Continue home meds.
[2019-09-28] MEDS: Furosemide 40 MG/4 ML VIAL IVPUSH SCH (09:33)
[2019-09-28] MEDS: Piperacillin/Tazobactam/Dext 3.375 GM in Premix Bag 1 BAG IV SCH ×3 (09:34→21:34)
[2019-09-28] MEDS: Sodium Chloride 0.9% 100 ML IV SCH (09:34)
[2019-09-28] MEDS ORDERED: Nitroglycerin 0.4 MG Tab.SL SL PRN (09:55)
[2019-09-28] MEDS ORDERED: Lidocaine 2% 100 MG/5 ML Syringe IVPUSH PRN (09:55)
[2019-09-28] MEDS ORDERED: Atropine 0.1 MG/ML 10 ML Syringe IVPUSH PRN (09:55)
[2019-09-28] MEDS ORDERED: EPINEPHrine 1:10,000 1 MG/10 ML Syringe IVPUSH PRN (09:55)
[2019-09-28] MEDS: Cholecalciferol (Vitamin D3) 25 MCG Tab PO SCH (12:12)
[2019-09-28] MEDS: Clopidogrel 75 MG Tab PO SCH (12:12)
[2019-09-28] MEDS: Multivitamins with Minerals/Iron/Folic Acid/Lycopene Tab PO SCH (12:17)
[2019-09-28] MEDS ORDERED: Insulin Detemir 100 Units/ML 3 ML Pen SUBCUT ONE (20:00)
[2019-09-28] MEDS: rOPINIRole 0.25 MG Tab PO SCH (21:43)
[2019-09-28] MEDS: Pregabalin 100 MG Cap PO SCH (21:43)
[2019-09-28] MEDS: Metoprolol Succinate 50 MG Tab.ER PO SCH (21:44)
[2019-09-29] MEDS: Piperacillin/Tazobactam/Dext 3.375 GM in Premix Bag 1 BAG IV SCH ×2 (03:04→08:21)
[2019-09-29 07:42] LABS: ANION GAP 16.7 mmol/L (5-15)
[2019-09-29] MEDS: Levothyroxine 75 MCG Tab PO SCH (07:53)
[2019-09-29] MEDS: glipiZIDE 5 MG Tab PO SCH (07:53)
[2019-09-29] MEDS: metFORMIN 500 MG Tab PO SCH (07:53)
[2019-09-29] MEDS: Insulin Aspart 100 Units/ML 3 ML Pen SUBCUT SCH ×2 (08:02→12:18)
[2019-09-29] MEDS: Losartan 50 MG Tab PO SCH (08:05)
[2019-09-29] MEDS: B.Bifidum/B.Longum/L.Acidophilus/L.Rhamnosus (Probiotic) Cap PO SCH (08:06)
[2019-09-29] MEDS: Isosorbide Mononitrate 30 MG Tab.ER PO SCH (08:06)
[2019-09-29] MEDS: Pregabalin 25 MG Cap PO SCH (08:06)
[2019-09-29] MEDS: Aspirin 81 MG Tab.EC PO SCH (08:07)
[2019-09-29] MEDS: Apixaban 5 MG Tab PO SCH (08:07)
[2019-09-29] MEDS: Furosemide 40 MG/4 ML VIAL IVPUSH SCH (08:14)
[2019-09-29] MEDS: Sodium Chloride 0.9% 10 ML Syringe FLUSH PRN ×2 (08:14→14:38)
[2019-09-29] MEDS: Sodium Chloride 0.9% 100 ML IV SCH (08:20)
[2019-09-29] MEDS ORDERED: Pregabalin 25 MG Cap PO SCH (09:17)
[2019-09-29] MEDS: Cholecalciferol (Vitamin D3) 25 MCG Tab PO SCH (12:22)
[2019-09-29] MEDS: Multivitamins with Minerals/Iron/Folic Acid/Lycopene Tab PO SCH (12:22)
[2019-09-29] MEDS: Clopidogrel 75 MG Tab PO SCH (12:22)
--- NOTE | 2019-09-29 12:41 | PCM.DCSUM1 ---
Discharge Summary - Hospital Course Free Text/Narrative:: Admission Date: 09/26/2019 Discharge Date: 09/29/2019 Admission Diagnoses: Respiratory distress, improved with IV lasix total daily dose of 60 mg IV daily in divided dose. Will return to [place] on 20 mg PO furosemide daily. CHF exacerbation, chronic diastolic dysfunction. Lasix as noted above returning to outpatient dose. A-fib with RVR, RVR is resolved, continues on chronic a-fib which is an outpatient diagnoses. Continue on Eliquis. Neutrophilis leukocytosis. Initial WBC was 28, now down to 10 which is stable outpatient level. Neutrophilia has resolved. Blood cultures negative, CXR negative for infiltrate, UA negative. Procalcitonin was slightly elevated at 1.05. No indication for antibiotics as an outpatient. Was treated initially with rocephin and levofloxacin then switched to vancomycin and zosyn. Lactate initially 6.0 but after 2 days had normalized. Acute kidney injury, likely secondary to increased diuretic use as this has occurred in the past when lasix has had to be increased. Resume home lasix dose with repeat BMP in 10/02/2019 Hyperkalemia, resolved. Diabetes mellitus with hyperglycemia, insulin drip initiated due to BG >600, this was able to be discontinued on 09/27/2019. New discharge order for levemir 10 units subcut qhs continuing on metformin and glipizide. BID accuchecks as an oupatient. Lactic acidosis, resolved. CODE STATUS: DNR. 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 Depression. Continue home meds. Dry eyes. Continue home meds. HTN. Continue home meds. Hypothyroidism. Continue home meds. Mass of colon. Hopefully she can proceed with surgery on 10/16 as scheduled. Obesity. OA. Continue home meds. Perhiperhal neuropathy. Continue home meds. Pernicious anemia. Outpatient B12 injections. Vit D deficiency. Continue home meds. Silvana is being discharged today from inpatient care. She was admitted on 2019 through the ER from the [place] for respiratory distress, a-fib with RVR, neutrophilic leukocytosis without clear source if infection as well as CHF exacerbation. She was started on rocephin and levofloxacin after blood culture were obtained. She was initially requiring 8L of O2 to keep sats >90%. She has been weaned off oxygen. She was also noted to be in a-fib with RVR, HR in the 140's which did come down to <100 without any additional intervention. Metoprolol did have to be held one evening due to hypotension but this has been resumed and her BP has been normotensive. MEDICATION CHANGES: Initiation of Levemir 10 units subcut qhs. No other medication changes or adjustments. BMP on 10/02/2019 Diagnosis: Stroke: No Modified Jeff Scale: No Signif.Disability Despite Sympt.Able to Carry Out Usual Act./Duties Modified Jeff Scale Score: 1 - Discharge Data Discharge Date: 09/29/19 Discharge Disposition: DC/Tfer to SNF 03 Condition: Good - Referral to Home Health Primary Care Physician: Julee Sandoval MD - Patient Summary/Data Recommended Follow-up Testing/Procedures: [facility] on 10/02/2019 - Patient Instructions Diet: Heart Healthy Diet, Diabetic Diet - Discharge Plan *PRESCRIPTION DRUG MONITORING PROGRAM REVIEWED*: Not Applicable *COPY OF PRESCRIPTION DRUG MONITORING REPORT IN PATIENT LIBRADO: Not Applicable Prescriptions/Med Rec: Insulin Detemir [Levemir Flextouch] 10 unit SQ BEDTIME #1 ml Home Medications: Home Meds Furosemide 20 mg PO DAILY 03/28/14 [History] Levothyroxine 150 mcg PO ACBRK 03/28/14 [History] Pregabalin [Lyrica] 150 mg PO DAILY 03/28/14 [History] glipiZIDE [Glipizide] 20 mg PO BIDM 03/28/14 [History] metFORMIN [Glucophage] 1,000 mg PO BIDM 03/28/14 [History] Cholecalciferol (Vitamin D3) [Vitamin D3] 2,000 units PO DAILY@1200 01/31/18 [ History] Clopidogrel Bisulfate [Clopidogrel] 75 mg PO DAILY@1200 01/31/18 [History] Isosorbide Mononitrate [Isosorbide Mononitrate ER] 60 mg PO DAILY 01/31/18 [ History] Losartan [Cozaar] 100 mg PO DAILY 01/31/18 [History] Multivitamin [One Daily Multivitamin] 1 each PO DAILY@1200 01/31/18 [History] Cyanocobalamin (Vitamin B-12) [Cyanocobalamin Injection] 1,000 mcg IJ Q21D 08/14 [History] Nitroglycerin 1 tab SL ASDIRECTED PRN 08/14/18 [History] Acetaminophen [Acetaminophen Extra Strength] 500 mg PO Q6H PRN 09/14/18 [History ] Metoprolol Succinate [Toprol XL 50mg] 100 mg PO BEDTIME 09/14/18 [History] Pregabalin [Lyrica] 100 mg PO BEDTIME 09/14/18 [History] Apixaban [Eliquis] 5 mg PO BID tablet 09/16/18 [Rx] Aspirin [Ecotrin EC] 81 mg PO DAILY 07/31/19 [History] Cranberry Fruit Concentrate [Cranberry] 450 mg PO BID 07/31/19 [History] Hydrocortisone [Proctosol-HC] 1 supp RECTAL BID PRN 07/31/19 [History] L.acidoph,Paracasei, B.lactis [Probiotic] 1 cap PO DAILY 07/31/19 [History] Lidocaine/Transparent Dressing [Lidocaine 4% Kit] 1 patch TOP DAILY PRN [History] Propylene Glycol/Peg 400 [Systane Ultra 0.4-0.3% Eye Drp] 1 drop EYEBOTH BID PRN 07/31/19 [History] rOPINIRole HCl [Requip] 0.5 mg PO BEDTIME 07/31/19 [History] Albuterol/Ipratropium [DuoNeb 3.0-0.5 MG/3 ML] 3 ml INH Q4H PRN 09/27/19 [ History] Bisacodyl [Dulcolax] 10 mg RC DAILY PRN 09/27/19 [History] Magnesium Oxide [Magnesium Oxide 400] 240 mg PO BID 09/27/19 [History] Melatonin 5 mg PO BEDTIME 09/27/19 [History] Oxyquinoline/Emollient [[place] Oint] 1 applic TOP BID 09/27/19 [History] Sennosides/Docusate Sodium [Senna-S] 1 each PO DAILY PRN 09/27/19 [History] polyethylene glycoL 3350 [MiraLAX] 17 gm PO DAILY 09/27/19 [History] Insulin Detemir [Levemir Flextouch] 10 unit SQ BEDTIME #1 ml 09/29/19 [Rx] Referrals: Julee Sandoval MD [Primary Care Provider] - - Discharge Summary/Plan Comment DC Time >30 min.: Yes Discharge Summary/Plan Comment: Total discharge time 40 minutes. - General Info Date of Service: 09/29/19 Admission Dx/Problem (Free Text: Respiratory distress Neutrophilic leukocytosis A-fib with RVR CHF exacerbation - Patient Data Vitals - Most Recent: Last Vital Signs Temp 97.4 F 09/29/19 06:29 Pulse 75 09/29/19 06:29 Resp 24 H 09/29/19 06:29 BP 110/60 09/29/19 08:06 Pulse Ox 91 L 09/29/19 09:00 Weight - Most Recent: 203 lb I&O - Last 24 hours: Intake & Output 09/28/19 09/29/19 09/29/19 22:59 06:59 14:59 Intake Total 625 175 Output Total 500 100 Balance 125 75 Lab Results - Last 24 hrs: Laboratory Results - last 24 hr 09/28/19 09/28/19 09/28/19 Range/Units 07:25 18:01 21:37 WBC (5.00-10.00) 10^3/uL RBC (3.80-5.50) 10^6/uL Hgb (12.0-16.0) g/dL Hct (37.0-47.0) % MCV (82.0-92.0) fL MCH (27.0-31.0) pg MCHC (32.0-36.0) g/dL RDW (11.5-14.5) % Plt Count (150-400) 10^3/uL MPV (7.4-10.4) fL Immature Gran % (Auto) (0.0-5.0) % Neut % (Auto) (50.0-70.0) % Lymph % (Auto) (20.0-40.0) % [place] % (Auto) (2.0-8.0) % Eos % (Auto) (1.0-3.0) % Baso % (Auto) (0.0-1.0) % Immature Gran # (Auto) (0.00-0.50) 10^3/uL Neut # (Auto) (2.50-7.00) 10^3/uL Lymph # (Auto) (1.00-4.00) 10^3/uL [place] # (Auto) (0.10-0.80) 10^3/uL Eos # (Auto) (0.10-0.30) 10^3/uL Baso # (Auto) (0.00-0.10) 10^3/uL Sodium (136-145) mmol/L Potassium (3.3-5.3) mmol/L Chloride (98-115) mmol/L Carbon Dioxide (21.0-32.0) mmol/L Anion Gap (5-15) mmol/L BUN (6-25) mg/dL Creatinine (0.51-1.17) mg/dL Est Cr Clr Drug Dosing mL/min Estimated GFR (MDRD) mL/min Glucose (75 - 99) mg/dL POC Glucose 193 H 169 H (74-106) mg/dl Calcium (8.7-10.3) mg/dL Total Bilirubin (0.2-1.0) mg/dL AST (15-37) U/L ALT (12-78) U/L Alkaline Phosphatase (46-116) IU/L Total Protein (6.4-8.2) g/dL Albumin (3.00-4.80) g/dL Procalcitonin 1.05 H (<0.10) ng/mL Vancomycin Trough (10-20) ug/mL 09/29/19 09/29/19 09/29/19 Range/Units 06:35 07:11 07:11 WBC 10.93 H (5.00-10.00) 10^3/uL RBC 3.25 L (3.80-5.50) 10^6/uL Hgb 9.1 L (12.0-16.0) g/dL Hct 29.6 L (37.0-47.0) % MCV 91.1 (82.0-92.0) fL MCH 28.0 (27.0-31.0) pg MCHC 30.7 L (32.0-36.0) g/dL RDW 15.6 H (11.5-14.5) % Plt Count 276 (150-400) 10^3/uL MPV 10.9 H (7.4-10.4) fL Immature Gran % (Auto) 1.0 (0.0-5.0) % Neut % (Auto) 66.3 (50.0-70.0) % Lymph % (Auto) 21.0 (20.0-40.0) % [place] % (Auto) 10.2 H (2.0-8.0) % Eos % (Auto) 1.2 (1.0-3.0) % Baso % (Auto) 0.3 (0.0-1.0) % Immature Gran # (Auto) 0.11 (0.00-0.50) 10^3/uL Neut # (Auto) 7.25 H (2.50-7.00) 10^3/uL Lymph # (Auto) 2.29 (1.00-4.00) 10^3/uL [place] # (Auto) 1.12 H (0.10-0.80) 10^3/uL Eos # (Auto) 0.13 (0.10-0.30) 10^3/uL Baso # (Auto) 0.03 (0.00-0.10) 10^3/uL Sodium 136 (136-145) mmol/L Potassium 5.3 (3.3-5.3) mmol/L Chloride 99 (98-115) mmol/L Carbon Dioxide 25.6 (21.0-32.0) mmol/L Anion Gap 16.7 H (5-15) mmol/L BUN 49 H (6-25) mg/dL Creatinine 2.02 H (0.51-1.17) mg/dL Est Cr Clr Drug Dosing 19.42 mL/min Estimated GFR (MDRD) 23 mL/min Glucose 207 H (75 - 99) mg/dL POC Glucose 217 H (74-106) mg/dl Calcium 8.2 L (8.7-10.3) mg/dL Total Bilirubin 0.6 (0.2-1.0) mg/dL AST 60 H (15-37) U/L ALT 44 (12-78) U/L Alkaline Phosphatase 73 (46-116) IU/L Total Protein 6.3 L (6.4-8.2) g/dL Albumin 2.57 L (3.00-4.80) g/dL Procalcitonin (<0.10) ng/mL Vancomycin Trough (10-20) ug/mL 09/29/19 09/29/19 Range/Units 11:03 12:17 WBC (5.00-10.00) 10^3/uL RBC (3.80-5.50) 10^6/uL Hgb (12.0-16.0) g/dL Hct (37.0-47.0) % MCV (82.0-92.0) fL MCH (27.0-31.0) pg MCHC (32.0-36.0) g/dL RDW (11.5-14.5) % Plt Count (150-400) 10^3/uL MPV (7.4-10.4) fL Immature Gran % (Auto) (0.0-5.0) % Neut % (Auto) (50.0-70.0) % Lymph % (Auto) (20.0-40.0) % [place] % (Auto) (2.0-8.0) % Eos % (Auto) (1.0-3.0) % Baso % (Auto) (0.0-1.0) % Immature Gran # (Auto) (0.00-0.50) 10^3/uL Neut # (Auto) (2.50-7.00) 10^3/uL Lymph # (Auto) (1.00-4.00) 10^3/uL [place] # (Auto) (0.10-0.80) 10^3/uL Eos # (Auto) (0.10-0.30) 10^3/uL Baso # (Auto) (0.00-0.10) 10^3/uL Sodium (136-145) mmol/L Potassium (3.3-5.3) mmol/L Chloride (98-115) mmol/L Carbon Dioxide (21.0-32.0) mmol/L Anion Gap (5-15) mmol/L BUN (6-25) mg/dL Creatinine (0.51-1.17) mg/dL Est Cr Clr Drug Dosing mL/min Estimated GFR (MDRD) mL/min Glucose (75 - 99) mg/dL POC Glucose 271 H (74-106) mg/dl Calcium (8.7-10.3) mg/dL Total Bilirubin (0.2-1.0) mg/dL AST (15-37) U/L ALT (12-78) U/L Alkaline Phosphatase (46-116) IU/L Total Protein (6.4-8.2) g/dL Albumin (3.00-4.80) g/dL Procalcitonin (<0.10) ng/mL Vancomycin Trough 14.4 (10-20) ug/mL EDYTA Results - Last 24 hrs: Microbiology 09/26/19 22:15 Aerobic Blood Culture - Preliminary Blood - Venous - Lab Draw NO GROWTH AFTER 2 DAYS Anaerobic Blood Culture - Preliminary NO GROWTH AFTER 2 DAYS 09/26/19 22:00 Aerobic Blood Culture - Preliminary Blood - Venous NO GROWTH AFTER 2 DAYS Anaerobic Blood Culture - Preliminary NO GROWTH AFTER 2 DAYS Med Orders - Current: Current Medications Acetaminophen (Tylenol) 650 mg PO Q6H PRN PRN Reason: Pain/Fever Albuterol/Ipratropium (Duoneb 3.0-0.5 Mg/3 Ml) 3 ml NEB Q4H PRN PRN Reason: Shortness Of Breath/wheezing Apixaban (Eliquis) 5 mg PO BID [facility] Last Admin: 09/29/19 08:07 Dose: 5 mg Artificial Tears (Liquitears 1.4% Ophth Soln) 0 ml EYEBOTH BID PRN PRN Reason: Dry Eyes Aspirin (Halfprin) 81 mg PO DAILY [facility] Last Admin: 09/29/19 08:07 Dose: 81 mg Cholecalciferol (Vitamin D3) 50 mcg PO DAILY@1200 [facility] Last Admin: 09/29/19 12:22 Dose: 50 mcg Clopidogrel Bisulfate (Plavix) 75 mg PO DAILY@1200 [facility] Last Admin: 09/29/19 12:22 Dose: 75 mg Cyanocobalamin (Vitamin B12) 1,000 mcg IM Q21D [facility] Furosemide (Lasix) 40 mg IVPUSH DAILY [facility] Last Admin: 09/29/19 08:14 Dose: 40 mg Furosemide (Lasix) 20 mg IVPUSH DAILY [facility] Glipizide (Glucotrol) 20 mg PO BIDM [facility] Last Admin: 09/29/19 07:53 Dose: 20 mg Hydrocortisone (Proctozone-Hc 2.5% Crm) 0 gm TOP BID PRN PRN Reason: Hemorrhoids Sodium Chloride (Normal Saline) 100 mls @ 100 mls/hr IV DAILY [facility] Last Admin: 09/29/19 08:20 Dose: 100 mls/hr Vancomycin HCl 1 gm/ Sodium (Chloride) 250 mls @ 166.667 mls/hr IV Q24H [facility] Last Admin: 09/28/19 12:19 Dose: 166.667 mls/hr Piperacillin/Tazobactam/ (Dextrose 3.375 gm/ Premix) 50 mls @ 100 mls/hr IV Q6H [facility] Last Admin: 09/29/19 08:21 Dose: 100 mls/hr Insulin Aspart (Novolog) 0 unit SUBCUT WITHMEALSANDBED [facility]; Protocol Last Admin: 09/29/19 12:18 Dose: 6 units Isosorbide Mononitrate (Imdur) 60 mg PO DAILY [facility] Last Admin: 09/29/19 08:06 Dose: 60 mg Lactobacillus Acidophilus/Rhamnosus (Multi-Karla Plus) 1 cap PO DAILY [facility] Last Admin: 09/29/19 08:06 Dose: 1 cap Levothyroxine Sodium (Levothyroxine) 150 mcg PO ACBREAKFAST [facility] Last Admin: 09/29/19 07:53 Dose: 150 mcg Losartan Potassium (Cozaar) 100 mg PO DAILY [facility] Last Admin: 09/29/19 08:05 Dose: 100 mg Metformin HCl (Glucophage) 1,000 mg PO BIDM [facility] Last Admin: 09/29/19 07:53 Dose: 1,000 mg Metoprolol Succinate (Toprol Xl) 100 mg PO BEDTIME [facility] Last Admin: 09/28/19 21:44 Dose: 100 mg Multivitamins/Minerals (Centrum) 1 tab PO DAILY@1200 [facility] Last Admin: 09/29/19 12:22 Dose: 1 tab Nitroglycerin (Nitrostat) 0.4 mg SL ASDIRECTED PRN PRN Reason: Chest Pain Ondansetron HCl (Zofran) 4 mg IV Q6H PRN PRN Reason: Nausea/Vomiting Pregabalin (Lyrica) 100 mg PO BEDTIME [facility] Last Admin: 09/28/19 21:43 Dose: 100 mg Pregabalin (Lyrica) 50 mg PO DAILY [facility] Pregabalin (Lyrica) 100 mg PO DAILY [facility] Ropinirole HCl (Requip) 0.5 mg PO BEDTIME [facility] Last Admin: 09/28/19 21:43 Dose: 0.5 mg Sodium Chloride (Saline Flush) 10 ml FLUSH Q8HR PRN PRN Reason: keep vein open Last Admin: 09/29/19 08:14 Dose: 10 ml Vancomycin HCl (Pharmacy To Dose - Vancomycin) 1 dose .XX ASDIRECTED [facility] Discontinued Medications Acetaminophen (Tylenol) 650 mg RECTAL NOW ONE Stop: 09/26/19 21:32 Last Admin: 09/26/19 23:47 Dose: 650 mg Atropine Sulfate (Atropine 0.1 Mg/Ml) 0 mg IVPUSH ASDIRECTED PRN PRN Reason: Heart Ceftriaxone Sodium (Rocephin) 2 gm IVPUSH ONETIME [facility] Last Admin: 09/26/19 23:35 Dose: 2 gm Cyanocobalamin (Vitamin B12) 1,000 mcg IM Q21D [facility] Last Admin: 09/27/19 00:23 Dose: Not Given Epinephrine HCl (Epinephrine 1:10,000) 1 mg IVPUSH ASDIRECTED PRN PRN Reason: Heart Levofloxacin/Dextrose 500 mg/ (Premix) 100 mls @ 100 mls/hr IV Q24H [facility] Last Admin: 09/26/19 23:44 Dose: 100 mls/hr Sodium Chloride (Normal Saline) Confirm Administered Dose 100 mls @ as directed .ROUTE .STK-MED ONE Stop: 09/26/19 23:26 Last Admin: 09/27/19 00:16 Dose: Not Given Insulin Human Regular 100 unit (/ Sodium Chloride) 100 mls @ 8.98 mls/hr IV TITRATE [facility]; Protocol Last Admin: 09/27/19 07:35 Dose: 0.1 units/kg/hr, 8.98 mls/hr Piperacillin Sod/Tazobactam (Sod 3.375 gm/ Sodium Chloride) 50 mls @ 100 mls/ hr IV Q6H [facility] Last Admin: 09/27/19 12:52 Dose: Not Given Piperacillin Sod/Tazobactam (Sod 3.375 gm/ Sodium Chloride) 50 mls @ 100 mls/ hr IV Q6H [facility] Last Admin: 09/27/19 13:14 Dose: Not Given Piperacillin Sod/Tazobactam (Sod 3.375 gm/ Sodium Chloride) 50 mls @ 100 mls/ hr IV Q6H [facility] Last Admin: 09/28/19 03:48 Dose: 100 mls/hr Piperacillin/Tazobactam/ (Dextrose 3.375 gm/ Premix) 50 mls @ 100 mls/hr IV Q6H [facility] Last Admin: 09/28/19 08:26 Dose: Not Given Insulin Detemir (Levemir) 10 unit SUBCUT ONETIME ONE Stop: 09/28/19 20:01 Last Admin: 09/28/19 21:47 Dose: 10 unit Lidocaine HCl (Xylocaine 2%) 0 mg IVPUSH ASDIRECTED PRN PRN Reason: Heart Metronidazole (Flagyl) 500 mg PO BID [facility] Nitroglycerin (Nitrostat) 0.4 mg SL ASDIRECTED PRN PRN Reason: Heart Non-Formulary Medication (Cranberry Fruit Concentrate [Cranberry]) 450 mg PO BID [facility] Non-Formulary Medication (L.Acidoph,Paracasei, B.Lactis [Probiotic]) 1 cap PO DAILY [facility] Non-Formulary Medication (Levothyroxine [Levothyroxine]) 150 mcg PO ACBRK [facility] Last Admin: 09/27/19 08:40 Dose: Not Given Non-Formulary Medication (Lidocaine 4%) 1 patch TOP DAILY PRN PRN Reason: Pain Non-Formulary Medication (Losartan [Cozaar]) 100 mg PO DAILY [facility] Non-Formulary Medication (Metformin [Glucophage]) 1,000 mg PO BIDM [facility] Last Admin: 09/27/19 09:30 Dose: Not Given Non-Formulary Medication (Pregabalin [Lyrica]) 150 mg PO DAILY [facility] Non-Formulary Medication (Propylene Glycol/Peg 400 [Systane Ultra 0.4-0.3% Eye Drp]) 1 drop EYEBOTH BID PRN PRN Reason: Dry Eyes Piperacillin Sod/Tazobactam Sod (Zosyn) 3.375 gm IV Q6H [facility] Pregabalin (Lyrica) 150 mg PO DAILY [facility] Last Admin: 09/29/19 08:06 Dose: 150 mg Pregabalin (Lyrica) 50 mg PO DAILY [facility] Pregabalin (Lyrica) 100 mg PO DAILY [facility] - Exam General: Reports: Alert, Oriented, Cooperative, No Acute Distress Lungs: Reports: Crackles (Bibasilar crackles, improving.) Cardiovascular: Reports: Regular Rate, Irregular Rhythm GI/Abdominal Exam: Normal Bowel Sounds, Soft, Non-Tender, No Organomegaly Extremities: No Pedal Edema
[2019-09-29] MEDS ORDERED: Furosemide 40 MG/4 ML VIAL IVPUSH SCH (14:00)
[2019-09-30] MEDS ORDERED: Pregabalin 100 MG Cap PO SCH ×2 (09:00)
[2019-09-30] MEDS ORDERED: Pregabalin 25 MG Cap PO SCH (09:00)
[2019-10-12] MEDS ORDERED: Cyanocobalamin (Vitamin B12) 1,000 MCG/ML SDV IM SCH (10:00)
== END 2019-09-29 15:15 | DRG 292 ==
LOC: KA.ED 20:57 → KA.MS 22:25 → UNDOADMIN 22:50
PROVIDERS: ADMIT Physician Assistant; ATTEND Physician Assistant
DX: I11.0 Hypertensive heart disease with heart failure (principal); N17.9 Acute kidney failure, unspecified; E87.2 Acidosis; I50.33 Acute on chronic diastolic (congestive) heart failure; I48.91 Unspecified atrial fibrillation; Z66 Do not resuscitate; E11.65 Type 2 diabetes mellitus with hyperglycemia; D72.829 Elevated white blood cell count, unspecified; E87.5 Hyperkalemia; E78.5 Hyperlipidemia, unspecified; F32.9 Major depressive disorder, single episode, unspecified; E11.42 Type 2 diabetes mellitus with diabetic polyneuropathy; E66.9 Obesity, unspecified; M19.90 Unspecified osteoarthritis, unspecified site; D51.0 Vitamin B12 deficiency anemia due to intrinsic factor deficiency; K63.89 Other specified diseases of intestine; H04.123 Dry eye syndrome of bilateral lacrimal glands; E55.9 Vitamin D deficiency, unspecified; I25.10 Atherosclerotic heart disease of native coronary artery without angina pectoris; E78.00 Pure hypercholesterolemia, unspecified; D64.9 Anemia, unspecified; E03.9 Hypothyroidism, unspecified; Z88.5 Allergy status to narcotic agent; Z88.8 Allergy status to other drugs, medicaments and biological substances; Z79.890 Hormone replacement therapy; Z79.82 Long term (current) use of aspirin; Z79.899 Other long term (current) drug therapy; Z98.49 Cataract extraction status, unspecified eye; I25.2 Old myocardial infarction
CPT/HCPCS: 36415; 71045; 80048; 80053; 80202; 81001; 82962; 83605; 83880; 84132; 84145; 84484; 85025; 85651; 86140; 87040; 93005; 99285-25; A9270-GY; J0696; J1815-GY; J1817-GY; J1940; J1956; J2543; J3370; J7050

== ENCOUNTER 2019-10-31 23:43 | Observation (INO) | payer OTHER ==
[2019-10-31] MEDS ORDERED: Sodium Chloride 0.9% 10 ML Syringe FLUSH PRN (23:50)
--- NOTE | 2019-11-01 00:22 | EDM.PDOC ---
ED HPI GENERAL MEDICAL PROBLEM - General Chief Complaint: General Stated Complaint: lethargic, low blood sugars Time Seen by Provider: 11/01/19 00:09 Source of Information: Reports: EMS, EMS Notes Reviewed, [facility] Records History Limitations: Reports: No Limitations - History of Present Illness INITIAL COMMENTS - FREE TEXT/NARRATIVE: Patient is an 89-year-old female who presents to the emergency department this evening via EMS for complaint of low blood sugar. [facility] nursing facility staff contacted 911, however, did not contact Dr. Hollingsworth or myself for transfer. Per EMS, they were told by nursing staff at [facility] that patient has not been eating and her blood glucose is down to the 70s. EMS fingerstick registered blood glucose of 76 during transport. Patient is baseline confused, but did not appear in distress per EMS. Upon arrival to ER, patient was alert, appeared in no distress, and vital signs were within normal limits. Patient was offered chocolate milk and peanut butter on toast, which she consumed without difficulty. Patient denies chest pain, headache, nausea, vomiting, diarrhea, abdominal pain, or any discomfort. Onset: Unknown/Unsure Severity: Mild Improves with: Reports: None Worsens with: Reports: None Associated Symptoms: Reports: No Other Symptoms - Related Data Allergies Allergy/AdvReac Type Severity Reaction Status Date / Time amlodipine Allergy Cannot Verified 11/01/19 00:11 Remember atorvastatin [From Lipitor] Allergy Cannot Verified 11/01/19 00:11 Remember carvedilol [From Coreg] Allergy Edema Verified 11/01/19 00:11 celecoxib [From Celebrex] Allergy Cannot Verified 11/01/19 00:11 Remember morphine Allergy Cannot Verified 11/01/19 00:11 Remember rosuvastatin [From Crestor] Allergy Cannot Verified 11/01/19 00:11 Remember sorbitol Allergy Cannot Verified 11/01/19 00:11 Remember Rmtoqeq-Npv-Awc Reductase Allergy Cannot Verified 11/01/19 00:11 Inhibitor Remember Home Meds: Home Meds Furosemide 20 mg PO DAILY 03/28/14 [History] Levothyroxine 150 mcg PO ACBRK 03/28/14 [History] Pregabalin [Lyrica] 150 mg PO DAILY 03/28/14 [History] glipiZIDE [Glipizide] 20 mg PO BIDM 03/28/14 [History] metFORMIN [Glucophage] 1,000 mg PO BIDM 03/28/14 [History] Cholecalciferol (Vitamin D3) [Vitamin D3] 2,000 units PO DAILY@1200 01/31/18 [ History] Clopidogrel Bisulfate [Clopidogrel] 75 mg PO DAILY@1200 01/31/18 [History] Isosorbide Mononitrate [Isosorbide Mononitrate ER] 60 mg PO DAILY 01/31/18 [ History] Losartan [Cozaar] 100 mg PO DAILY 01/31/18 [History] Multivitamin [One Daily Multivitamin] 1 each PO DAILY@1200 01/31/18 [History] Cyanocobalamin (Vitamin B-12) [Cyanocobalamin Injection] 1,000 mcg IJ Q21D 08/14 [History] Nitroglycerin 1 tab SL ASDIRECTED PRN 08/14/18 [History] Acetaminophen [Acetaminophen Extra Strength] 500 mg PO Q6H PRN 09/14/18 [History ] Metoprolol Succinate [Toprol XL 50mg] 100 mg PO BEDTIME 09/14/18 [History] Pregabalin [Lyrica] 100 mg PO BEDTIME 09/14/18 [History] Apixaban [Eliquis] 5 mg PO BID tablet 09/16/18 [Rx] Aspirin [Ecotrin EC] 81 mg PO DAILY 07/31/19 [History] Cranberry Fruit Concentrate [Cranberry] 450 mg PO BID 07/31/19 [History] Hydrocortisone [Proctosol-HC] 1 supp RECTAL BID PRN 07/31/19 [History] L.acidoph,Paracasei, B.lactis [Probiotic] 1 cap PO DAILY 07/31/19 [History] Lidocaine/Transparent Dressing [Lidocaine 4% Kit] 1 patch TOP DAILY PRN [History] Propylene Glycol/Peg 400 [Systane Ultra 0.4-0.3% Eye Drp] 1 drop EYEBOTH BID PRN 07/31/19 [History] rOPINIRole HCl [Requip] 0.5 mg PO BEDTIME 07/31/19 [History] Albuterol/Ipratropium [DuoNeb 3.0-0.5 MG/3 ML] 3 ml INH Q4H PRN 09/27/19 [ History] Bisacodyl [Dulcolax] 10 mg RC DAILY PRN 09/27/19 [History] Magnesium Oxide [Magnesium Oxide 400] 240 mg PO BID 09/27/19 [History] Melatonin 5 mg PO BEDTIME 09/27/19 [History] Oxyquinoline/Emollient [Bag [place] Oint] 1 applic TOP BID 09/27/19 [History] Sennosides/Docusate Sodium [Senna-S] 1 each PO DAILY PRN 09/27/19 [History] polyethylene glycoL 3350 [MiraLAX] 17 gm PO DAILY 09/27/19 [History] Insulin Detemir [Levemir Flextouch] 10 unit SQ BEDTIME #1 ml 09/29/19 [Rx] Past Medical History HEENT History: Reports: Cataract, Hard of Hearing, Impaired Vision, Other (See Below) Other HEENT History: NOME with hearing aid left ear Cardiovascular History: Reports: Afib, Angina, Arrhythmia, Heart Failure, High Cholesterol, Hypertension, MD, SOB on Exertion, Stents Respiratory History: Reports: Bronchitis, Recurrent, SOB Gastrointestinal History: Reports: Chronic Diarrhea, GERD, Hemorrhoids Genitourinary History: Reports: Urinary Incontinence, UTI, Recurrent [employer] History: Reports: Musculoskeletal History: Reports: Back Pain, Chronic, Fracture Neurological History: Reports: Head Trauma, Neuropathy, Diabetic, Neuropathy, Peripheral, Parkinson's, TIA, Other (See Below) Other Neuro History: hand tremors Psychiatric History: Reports: None Endocrine/Metabolic History: Reports: Diabetes, Type II, Hypothyroidism, Obesity /BMI 30+, Vitamin D Deficiency Hematologic History: Reports: Anemia, B12 Deficiency Other Hematologic History: intrinsic factor deficiency Dermatologic History: Reports: None - Infectious Disease History Infectious Disease History: Reports: Chicken Pox, Influenza, Measles, Mumps - Past Surgical History HEENT Surgical History: Reports: Cataract Surgery, Eye Surgery, Oral Surgery Cardiovascular Surgical History: Reports: Coronary Artery Stent, Other (See Below) Other Cardiovascular Surgeries/Procedures: Endocarditis Respiratory Surgical History: Reports: None GI Surgical History: Reports: Colonoscopy Female Surgical History: Reports: D&C, Other (See Below) Other Female Surgeries/Procedures: bladder stone Endocrine Surgical History: Reports: Thyroidectomy Neurological Surgical History: Reports: None Musculoskeletal Surgical History: Reports: Arthroscopic Knee Dermatological Surgical History: Reports: None Social & Family History - Family History Family Medical History: Noncontributory - Caffeine Use Caffeine Use: Reports: Coffee - Living Situation & Occupation Living situation: Reports: Occupation: Retired ED ROS GENERAL - Review of Systems Review Of Systems: Comprehensive ROS is negative, except as noted in HPI. Constitutional: Reports: No Symptoms HEENT: Reports: No Symptoms Respiratory: Reports: No Symptoms Cardiovascular: Reports: No Symptoms Endocrine: Reports: Low Glucose GI/Abdominal: Reports: No Symptoms : Reports: No Symptoms Musculoskeletal: Reports: No Symptoms Skin: Reports: No Symptoms Neurological: Reports: No Symptoms Psychiatric: Reports: No Symptoms Hematologic/Lymphatic: Reports: No Symptoms Immunologic: Reports: No Symptoms ED EXAM, GENERAL - Physical Exam Exam: See Below Exam Limited By: No Limitations General Appearance: Alert, WD/WN, No Apparent Distress Eye Exam: Bilateral Eye: Normal Inspection Nose: Normal Inspection, Normal Mucosa, No Blood Throat/Mouth: Normal Inspection, Normal Oropharynx, No Airway Compromise Head: Atraumatic, Normocephalic Neck: Normal Inspection Respiratory/Chest: No Respiratory Distress, Lungs Clear, Normal Breath Sounds, No Accessory Muscle Use, Chest Non-Tender Cardiovascular: Regular Rate, Rhythm, No Murmur GI/Abdominal: Normal Bowel Sounds, Soft, Non-Tender Back Exam: Normal Inspection. No: CVA Tenderness (L), CVA Tenderness (R) Extremities: Normal Inspection, No Pedal Edema Neurological: Alert, Normal Cognition, Confused (At baseline) Psychiatric: Normal Affect, Normal Mood Skin Exam: Warm, Dry, Intact, Normal Color, No Rash Lymphatic: No Adenopathy Course - Vital Signs Last Recorded V/S: Last Vital Signs Temp 97.9 F 10/31/19 23:54 Pulse 90 10/31/19 23:54 Resp 24 H 10/31/19 23:54 BP 149/70 H 10/31/19 23:54 Pulse Ox 98 10/31/19 23:54 - Orders/Labs/Meds Orders: Active Orders 24 hr Category Date Time Status UA RFX EDYTA AND CULT IF INDIC [URIN] Stat Lab 11/01/19 00:09 Ordered Labs: Laboratory Tests 11/01/19 11/01/19 Range/Units 00:15 00:15 WBC 8.81 (5.00-10.00) 10^3/uL RBC 3.44 L (3.80-5.50) 10^6/uL Hgb 8.8 L (12.0-16.0) g/dL Hct 30.1 L (37.0-47.0) % MCV 87.5 (82.0-92.0) fL MCH 25.6 L (27.0-31.0) pg MCHC 29.2 L (32.0-36.0) g/dL RDW 17.6 H (11.5-14.5) % Plt Count 372 (150-400) 10^3/uL MPV 10.0 (7.4-10.4) fL Immature Gran % (Auto) 0.9 (0.0-5.0) % Neut % (Auto) 55.4 (50.0-70.0) % Lymph % (Auto) 26.9 (20.0-40.0) % [place] % (Auto) 12.9 H (2.0-8.0) % Eos % (Auto) 3.3 H (1.0-3.0) % Baso % (Auto) 0.6 (0.0-1.0) % Immature Gran # (Auto) 0.08 (0.00-0.50) 10^3/uL Neut # (Auto) 4.88 (2.50-7.00) 10^3/uL Lymph # (Auto) 2.37 (1.00-4.00) 10^3/uL [place] # (Auto) 1.14 H (0.10-0.80) 10^3/uL Eos # (Auto) 0.29 (0.10-0.30) 10^3/uL Baso # (Auto) 0.05 (0.00-0.10) 10^3/uL Sodium 141 (136-145) mmol/L Potassium 4.7 (3.3-5.3) mmol/L Chloride 106 (98-115) mmol/L Carbon Dioxide 30.8 (21.0-32.0) mmol/L Anion Gap 8.9 (5-15) mmol/L BUN 31 H (6-25) mg/dL Creatinine 1.11 (0.51-1.17) mg/dL Est Cr Clr Drug Dosing 28.98 mL/min Estimated GFR (MDRD) 46 mL/min Glucose 75 (75 - 99) mg/dL Hemoglobin A1c 7.7 H (4.3-5.7) % Calcium 8.9 (8.7-10.3) mg/dL Total Bilirubin 0.4 (0.2-1.0) mg/dL AST 28 (15-37) U/L ALT 24 (12-78) U/L Alkaline Phosphatase 65 (46-116) IU/L Total Protein 7.0 (6.4-8.2) g/dL Albumin 3.05 (3.00-4.80) g/dL - Re-Assessments/Exams Free Text/Narrative Re-Assessment/Exam: 11/01/19 00:50 Patient is afebrile, vital signs stable, lab values within normal limits, consumed peanut butter on toast and chocolate milk without difficulty. Patient will be admitted for observation. Departure - Departure Time of Disposition: 00:51 Disposition: Refer to Observation Condition: Good Clinical Impression: Hypoglycemia - Discharge Information Referrals: Kaci Fong PA-C [Primary Care Provider] - Forms: ED Department Discharge Sepsis Event Note - Evaluation Sepsis Screening Result: No Definite Risk - Focused Exam Vital Signs: Vital Signs Temp Pulse Resp BP Pulse Ox 10/31/19 23:54 97.9 F 90 24 H 149/70 H 98 Date Exam was Performed: 11/01/19 Time Exam was Performed: 00:50 - My Orders Last 24 Hours: My Active Orders 11/01/19 00:09 UA RFX EDYTA AND CULT IF INDIC [URIN] Stat - Assessment/Plan Last 24 Hours: My Active Orders 11/01/19 00:09 UA RFX EDYTA AND CULT IF INDIC [URIN] Stat Assessment:: Hypoglycemia Plan: Admit observation
[2019-11-01 00:37] LABS: HEMOGLOBIN A1C 7.7 % (4.3-5.7)
[2019-11-01 00:44] LABS: ANION GAP 8.9 mmol/L (5-15)
[2019-11-01] MEDS ORDERED: LIDOCAINE 4% TOP PRN (04:58)
[2019-11-01] MEDS ORDERED: Albuterol/Ipratropium 3.0-0.5 MG/3 ML Neb Soln NEB ONE (05:25)
[2019-11-01] MEDS ORDERED: LEVOTHYROXINE 150 MCG PO SCH (07:00)
[2019-11-01] MEDS ORDERED: glipiZIDE 5 MG Tab PO SCH (08:00)
[2019-11-01] MEDS ORDERED: Non-Formulary Medication 1 Each (Metformin [Glucophage] 1,000 MG) PO SCH (08:00)
[2019-11-01] MEDS ORDERED: Non-Formulary Medication 1 Each (Losartan [Cozaar] 100 MG) PO SCH (09:00)
[2019-11-01] MEDS ORDERED: Furosemide 40 MG Tab PO SCH (09:00)
[2019-11-02] MEDS ORDERED: Levothyroxine 75 MCG Tab PO SCH (07:00)
[2019-11-02] MEDS ORDERED: metFORMIN 500 MG Tab PO SCH (08:00)
[2019-11-02] MEDS ORDERED: Lidocaine 5% 700 MG Patch TOP PRN ×2 (08:30)
[2019-11-02] MEDS ORDERED: Losartan 50 MG Tab PO SCH (09:00)
== END 2019-11-01 08:15 ==
LOC: KA.ED 23:43 → KA.MS 11-01 00:50
PROVIDERS: ADMIT Physician Assistant Surgical; ATTEND Internal Medicine
DX: E11.649 Type 2 diabetes mellitus with hypoglycemia without coma (principal); I48.91 Unspecified atrial fibrillation; I11.0 Hypertensive heart disease with heart failure; I50.9 Heart failure, unspecified; E78.00 Pure hypercholesterolemia, unspecified; K21.9 Gastro-esophageal reflux disease without esophagitis; E11.42 Type 2 diabetes mellitus with diabetic polyneuropathy; E03.9 Hypothyroidism, unspecified; E66.9 Obesity, unspecified; E53.8 Deficiency of other specified B group vitamins; Z88.8 Allergy status to other drugs, medicaments and biological substances; Z88.6 Allergy status to analgesic agent; Z88.5 Allergy status to narcotic agent; Z79.899 Other long term (current) drug therapy; Z79.02 Long term (current) use of antithrombotics/antiplatelets; Z79.01 Long term (current) use of anticoagulants; Z79.82 Long term (current) use of aspirin; Z79.4 Long term (current) use of insulin
CPT/HCPCS: 36415; 80053; 82962; 83036; 85025; 99285-25; G0378; J7620-GY